=== PATIENT | male | born 1940 | race Caucasian/White ===

== ENCOUNTER → 2018-06-08 | Outpatient (CLI) | payer MEDICARE, OTHER ==
[~2018-06-08] MED LIST: ALFUZOSIN; AMIODARONE HCL200 MG PO; CYCLOSET0.8 MG PO; DORZOLAMIDE-TIM10 ML OP; FINASTERIDE5 MG PO; GARLIC1 EACH PO; GLIMEPIRIDE1 MG PO; GLIMEPIRIDE2 MG PO; JANUVIA100 MG PO; KLOR-CON 1010 MEQ PO; LASIX40 MG PO; LATANOPROST2.5 ML OU; METOPROL PO; METOPROLOL SUC100 MG PO; METOPROLOL SUCC50 MG PO; METOPROLOL TART50 MG PO; MOBIC7.5 MG PO; NAPROXEN375 M1 PO; NEXIUM40 MG PO; OCUVITE SOFTGE1 EACH PO; PANTOPRAZOLE SO40 MG PO; PHENAZOPYRIDIN100 MG PO; PRIMIDONE50 MG PO; SELEGILINE PO; SIMVASTATIN10 MG PO; UROXATRAL10 MG PO; VITAMIN E400 UNI2 PO; XARELTO15 MG PO; XARELTO20 MG PO; Z GARLIC PO; Z.0.DORZOLAMIDE-TIM1 OP; Z.0.LISINOPRIL10 MG PO; Z.0.NEXIUM40 MG; Z.0.ONGLYZA5 MG PO; Z.0.XALATAN2.5 ML OP; Z.0.ZOCOR40 MG; Z.1.VITAMIN E400 UNI PO; [UNRECOGNIZED DRUG - OTHER]; [UNRECOGNIZED DRUG - OTHER]
--- NOTE | 2018-06-08 10:25 | Diagnostic Imaging Report ---
PROCEDURE:X-RAY RIGHT SHOULDER, INTERNAL AND EXTERNAL TWO VIEWS COMPARISON:None. INDICATIONS:RIGHT SHOULDER PAIN FINDINGS: BONES: Normal mineralization. No acute fracture or dislocation. Mild degenerative changes in the right glenohumeral joint and moderate degenerative changes in the right acromioclavicular joint with joint space narrowing. Scapula is not well assessed on this study. SOFT TISSUES:Negative. CONCLUSION: No evidence of fracture or malalignment. 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 Dictated by: SREE LORENZANA M.D. on 06/08/2018 at 10:30 Electronically approved by: SREE LORENZANA M.D. on 06/08/2018 at 10:30
== END ==
LOC: RAD 09:16
PROVIDERS: ATTEND Family Medicine
DX: S46.011A Strain of muscle(s) and tendon(s) of the rotator cuff of right shoulder, initial encounter (principal)

== ENCOUNTER → 2019-04-06 | Outpatient (CLI) | payer MEDICARE, OTHER ==
[~2019-04-06] MED LIST changes: +IOPAMIDOL 370 MG/ML 200 ML INFUS..BTL INJ ONE; +SODIUM CHLORIDE 0.9% 250ML 250 ML ONE; +SODIUM CHLORIDE 0.9% 500ML 500 ML ONE; +SODIUM CHLORIDE 0.9% 50ML 50 ML ONE
[2019-04-06 09:08] LABS: CREATININE, SERUM 1.29 mg/dL (0.72-1.25)
--- NOTE | 2019-04-06 10:55 | Diagnostic Imaging Report ---
EXAMINATION: CT of the abdomen and pelvis with contrast. TECHNIQUE: Spiral CT images of the abdomen and pelvis were performed from the lung bases to the lesser trochanters after the intravenous administration of 100 cc Isovue-370. Coronal and sagittal reformatted images were obtained. COMPARISON: CT abdomen with and without contrast 05/22/2016 CLINICAL HISTORY:Right lower quadrant pain, one month duration DISCUSSION: ABDOMEN/PELVIS: LOWER THORAX:Calcified granuloma in the lingula. Cardiac device leads lie in the right atrium and right ventricle. HEPATOBILIARY: Round, hypoattenuating lesion in segment 8 is again noted, average internal attenuation 10-15 Hounsfield units compatible with a simple cyst. Similar lesion in segment 4 along the falciform ligament is no longer identified. No additional focal hepatic lesion. No intra-or extrahepatic biliary ductal dilation. The gallbladder is normal. SPLEEN: No splenomegaly. Upper pole splenic low-attenuation lesion is unchanged, average internal attenuation 10-15 Hounsfield units. PANCREAS: No focal masses or ductal dilatation. ADRENALS: Unchanged 1.6 cm left adrenal nodule. No right adrenal nodule. KIDNEYS/URETERS: Nonobstructing right lower pole renal calculi measure 3 and 4 mm in diameter. No left renal calculi. No hydronephrosis or renal mass lesion. PELVIC ORGANS/BLADDER: Urinary bladder is unremarkable. Coarse prostatic calcification. PERITONEUM/RETROPERITONEUM: No ascites. No pneumoperitoneum. LYMPH NODES: No pelvic sidewall, retroperitoneal, or mesenteric lymphadenopathy. Calcified mesenteric lymph nodes unchanged. VESSELS: Atherosclerotic calcification of the abdominal aorta, major branch vessels, and iliac arterial systems. Unchanged mild fusiform aneurysmal dilatation of the infrarenal abdominal aorta to a maximum diameter of 3.2 cm seen on series 2 image 52. Left common iliac artery measures 1.8 cm in maximum diameter; right common iliac artery measures 1.4 cm in maximum diameter. Portal vein, splenic vein, and central superior mesenteric vein are patent. GI TRACT: The large bowel is notable for multiple diverticula along the course of the entire colon, at highest concentration along the sigmoid. No wall thickening or mesocolic inflammation. The appendix is normal in the stomach is collapsed with prominent rugal folds. No small bowel dilatation to suggest obstruction. BONES AND SOFT TISSUE: Fat-containing left inguinal hernia. Otherwise no focal soft tissue abnormalities. No osseous destructive lesions. Degenerative disc changes and facet arthropathy of the lumbar spine. IMPRESSION: No acute intra-abdominal or pelvic CT abnormalities. Diffuse large bowel diverticulosis without CT findings of diverticulitis. 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 Nonobstructing right lower pole renal calculi also unchanged. Signed by: Dr. Loi Fontaine M.D. on 04/06/2019 10:52 AM
== END ==
LOC: CT 08:14
PROVIDERS: ATTEND Family Medicine
DX: R10.31 Right lower quadrant pain (principal)
CPT/HCPCS: 36415; 74177; 82565; 84520; 96360; J7040; J7050; Q9967

== ENCOUNTER 2019-07-23 07:31 | Inpatient (IN) | payer MEDICARE, OTHER ==
[2019-07-23] VITALS (14 sets, daily range): BP systolic 130–167; BP diastolic 41–85
[~2019-07-23] VITALS: Ht 190.5 cm; Wt 111.5 kg
[~2019-07-23 07:31] MED LIST changes: -IOPAMIDOL 370 MG/ML 200 ML INFUS..BTL INJ ONE; -SODIUM CHLORIDE 0.9% 250ML 250 ML ONE; -SODIUM CHLORIDE 0.9% 500ML 500 ML ONE; -SODIUM CHLORIDE 0.9% 50ML 50 ML ONE
--- OUTSIDE RECORDS SUMMARY | 2019-07-23 07:34 | XMS REPORT ---
Author Author [facility] Address Unknown Phone Unavailable Care Team Providers Care Hub Bander Name Role Phone OMAR CARROLL Unavailable Unavailable Junior ESTES Unavailable Unavailable Problems This patient has no known problems. Allergies, Adverse Reactions, Alerts This patient has no known allergies or adverse reactions. Medications This patient has no known medications. Results Test Description Test Time Test Comments Text Results Atomic Results Result Comments CT ABDOMEN/PELVIS W 2019-04-06 10:37:00 [place] [address] Patient Name: SHERRY KAPLAN MR #: [id number] : 1940 Age/Sex: 78/M Req #: [id number] Adm Physician: Ordered by: OMAR CARROLL MD Report #: [id number] Location: CT Room/Bed: Procedure: [id number] CT/CT ABDOMEN/PELVIS W Exam Date: 04/06/19 Exam Time: 1020 REPORT STATUS: Signed EXAMINATION: CT of the abdomen and pelvis with contra st. TECHNIQUE: Spiral CT images of the abdomen and pelvis were performed from the lung bases to the lesser trochanters after the intravenous administration of 100 cc Isovue-370. Coronal and sagittal reformatted images were obtained. COMPARISON: CT abdomen with and without contrast 05/22/2016 CLINICAL HISTORY:Right lower quadrant pain, one month duration DISCUSSION: ABDOMEN/PELVIS: LOWER THORAX:Calcified granuloma in the lingula. Cardiac device leads lie in the right atrium and right ventricle. HEPATOBILIARY: Round, hypoattenuating lesion in segment 8 is again noted, average internal attenuation 10-15 Hounsfield units compatible with a simple cyst. Similar lesion in segment 4 along the falciform ligament is no longer identified. No additional focal hepatic lesion. No intra-or extrahepatic biliary ductal dilation. The gallbladder is normal. SPLEEN: No splenomegaly. Upper pole splenic low-attenuation lesion is unchanged, average internal attenuation 10-15 Hounsfield units. PANCREAS: No focal masses or ductal dilatation. ADRENALS: Unchanged 1.6 cm left adrenal nodule. No right adrenal nodule. KIDNEYS/URETERS: Nonobstructing right lower pole renal calculi measure 3 and 4 mm in diameter. No left renal calculi. No hydronephrosis or renal mass lesion. PELVIC ORGANS/BLADDER: Urinary bladder is unremarkable. Coarse prostatic calcification. PERITONEUM/RETROPERITONEUM: No ascites. No pneumoperitoneum. LYMPH NODES: No pelvic sidewall, retroperitoneal, or mesenteric lymphadenopathy. Calcified mesenteric lymph nodes unchanged. VESSELS: Atherosclerotic calcification of the abdominal aorta, major branch vessels, and iliac arterial systems. Unchanged mild fusiform aneurysmal dilatation of the infrarenal abdominal aorta to a maximum diameter of 3.2 cm seen on series 2 image 52. Left common iliac artery measures 1.8 cm in maximum diameter; right common iliac artery measures 1.4 cm in maximum diameter. Portal vein, splenic vein, and central superior mesenteric vein are patent. GI TRACT: The large bowel is notable for multiple diverticula along the course of the entire colon, at highest concentration along the sigmoid. No wall thickening or mesocolic inflammation. The appendix is normal in the stomach is collapsed with prominent rugal folds. No small bowel dilatation to suggest obstruction. BONES AND SOFT TISSUE: Fat-containing left inguinal hernia. Otherwise no focal soft tissue abnormalities. No osseous destructive lesions. Degenerative disc changes and facet arthropathy of the lumbar spine. IMPRESSION: No acute intra- abdominal or pelvic CT abnormalities. Diffuse large bowel diverticulosis without CT findings of diverticulitis. 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 Nonobstructing right lower pole renal calculi also unchanged. Signed by: Dr. Tye Fontaine M.D. on 04/06/2019 10:52 AM Dictated By: TYE FONTAINE MD 1052 Transcribed By: NEGRO on 04/06/19 105 COPY TO: OMAR CARROLL MD SHOULDER RIGHT COMPLETE 2018-06-08 10:30:00 [facility] [address] [place] [address] Patient Name: SHERRY KAPLAN MR #: [id number] : 1940 Age/Sex: 77/M Req #: [id number] Adm Physician: Ordered by: OMAR CARROLL MD Report #: [id number] Location: [facility] Room/Bed: Procedure: [id number] DX/SHOULDER RIGHT COMPLETE Exam Date: 06/08/18 Exam Time: 929 REPORT STATUS: Signed PROCEDURE: X-RAY RIGHT SHOULDER, INTERNAL AND EXTERNAL TWO VIEWS COMPARISON: None. INDICATIONS: RIGHT SHOULDER PAIN FINDINGS: BONES: Normal mineralization. No acute fracture or dislocation. Mild degenerative changes in the right glenohumeral joint and moderate degenerative changes in the right acromioclavicular joint with joint space narrowing. Scapula is not well assessed on this study. SOFT TISSUES: Negative. CONCLUSION: No evidence of fracture or malalignment. 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 Dictated by: SREE LORENZANA M.D. on 06/08/2018 at 10:30 Electronically approved by: SREE LORENZANA M.D. on 06/08/2018 at 10:30 Dictated By: SREE LORENZANA MD 1030 Transcribed By: MYLENE on 06/08/18 1030 COPY TO: OMAR CARROLL MD CHEST SINGLE (PORTABLE) [place] [address] Patient Name: SHERRY KAPLAN MR #: [id number] : 1940 Age/Sex: 77/M Req #: [id number] Adm Physician: HAYDEN ESTES MD Ordered by: ANA MILLER MD Report #: [id number] Location: MED/SURG2 Room/Bed: [facility] Procedure: [id number] DX/CHEST SINGLE (PORTABLE) Exam Date: 09/17/17 Exam Time: 1300 REPORT STATUS: Signed PROCEDURE: A single AP view of the chest. COMPARISON: 09/16/2017 INDICATIONS: SHORTNESS OF BREATH FINDINGS: Lines/tubes: Left chest wall pacemaker with leads in unchanged positions Lungs: There is pulmonary vascular redistribution. There are nonspecific basilar opacities. Pleura: There is no pleural effusion or pneumothorax. Heart and mediastinum: The heart and the mediastinum are unchanged. Bones: No acute bony abnormality. Cervical fusion hardware is partially visualized. IMPRESSION: Pulmonary vascular redistribution. There are nonspecific basilar opacities which could represent atelectasis or edema. Dictated by: Harish Collier M.D. on 09/17/2017 at 13:58 Electronically approved by: Harish Collier M.D. on 09/17/2017 at 13:58 Dictated By: HARISH COLLIER MD 1358 Transcribed By: MYLENE on 09/17/17 1358 COPY TO: ANA MILLER MD CHEST SINGLE (PORTABLE) [facility] [address] [place] [address] Patient Name: SHERRY KAPLAN MR #: [id number] : 1940 Age/Sex: 77/M Req #: [id number] Adm Physician: HAYDEN ESTES MD Ordered by: TYE PALMER MD Report #: [id number] Location: ICU Room/Bed: [place] [address] Procedure: [id number] DX/CHEST SINGLE (PORTABLE) Exam Date: Exam Time: REPORT STATUS: Signed CHEST SINGLE (PORTABLE), 09/16/2017 8:00 AM Technique: CHEST SINGLE (PORTABLE) Comparison: 09/15/2017 Clinical history: Shortness of breath Findings: See Impression Impression: 1. Lines/Tubes: Stable left chest wall dual-lead pacer. Partially imaged ACDF. 2. Stable cardiomegaly with improved edema. 3. Decreased left basilar atelectasis or consolidation. Signed by: Dr Amirah Navarro MD on 09/16/2017 6:49 AM Dictated By: AMIRAH NAVARRO MD 8 Transcribed By: NEGRO on 09/16/17648 COPY TO: TYE PALMER MD CHEST SINGLE (PORTABLE) [place] [address] Patient Name: SHERRY KAPLAN MR #: [id number] : 1940 Age/Sex: 77/M Req #: [id number] Adm Physician: HAYDEN ESTES MD Ordered by: ANA MILLER MD Report #: [id number] Location: ICU Room/Bed: ICU 189-1 Procedure: [id number] DX/CHEST SINGLE (PORTABLE) Exam Date: 09/15/17 Exam Time: 1055 REPORT STATUS: Signed PROCEDURE: A single AP view of the chest. COMPARISON: 09/14/17 INDICATIONS: POST EXTUBATION FINDINGS: Lines/tubes: Stable left chest wall dual lead cardiac device. Lungs: Limited by body habitus. Pulmonary vascular congestion and moderate interstitial edema. Pleura: There is no significant pleural effusion or pneumothorax. Heart and mediastinum: Enlarged cardiac silhouette. Bones: No acute bony abnormality. Cervical spine fusion hardware is seen. IMPRESSION: Enlarged cardiac silhouette, pulmonary vascular congestion, and moderate interstitial edema. Status post extubation. Dictated by: Srini Hernandez M.D. on 09/15/2017 at 11:39 Electronically approved by: Srini Hernandez M.D. on 09/15/2017 at 11:39 Dictated By: SRINI HERNANDEZ MD 1139 Transcribed By: MYLENE on 09/15/17 1139 COPY TO: ANA MILLER MD CHEST SINGLE (PORTABLE) [place] [address] Patient Name: SHERRY KAPLAN MR #: [id number] : 1940 Age/Sex: 77/M Req #: [id number] Adm Physician: HAYDEN ESTES MD Ordered by: TYE PALMER MD Report #: [id number] Location: ICU Room/Bed: ICU 189-1 Procedure: [id number] DX/CHEST SINGLE (PORTABLE) Exam Date: 09/14/17 Exam Time: 0525 REPORT STATUS: Signed EXAM: CHEST SINGLE (PORTABLE), AP 1 view DATE: 09/14/2017 8:10 AM Time stamp on exam: 0412 hours INDICATION: Follow-up pneumonia COMPARISON: AP view of the chest September 13, 2017 FINDINGS: LINES/TUBES: Endotracheal tube terminates 5 cm above the jose. Stable appearance of left approach dual lead cardiac device. LUNGS: Pulmonary edema with additional consolidations suggesting superimposed infection predominantly in the right lung. PLEURA: No effusions or pneumothorax. HEART AND MEDIASTINUM: Stable appearance. BONES AND SOFT TISSUES: No acute findings. IMPRESSION: No interval change. Signed by: Dr. Shira Romero M.D. on 09/14/2017 5:49 AM Dictated By: SHIRA ROMERO MD 8 Transcribed By: NEGRO on 09/14/17548 COPY TO: TYE PALMER MD US RENAL RETROPERITONEAL COMP [place] [address] Patient Name: SHERRY KAPLAN MR #: [id number] : 1940 Age/Sex: 77/M Req #: [id number] Adm Physician: HAYDEN ESTES MD Ordered by: MAGNUS BRIDGES DO Report #: [id number] Location: ICU Room/Bed: ICU 189 Procedure: [id number] US/US RENAL RETROPERITONEAL COMP Exam Date: 09/14/17 Exam Time: 909 REPORT STATUS: Signed PROCEDURE: US RETROPERITONEAL ( KIDNEY ). COMPARISON: None. INDICATIONS: ARF TECHNIQUE: Xiao-scale and color sonographic images of the bilateral kidneys and bladder where obtained in transverse and longitudinal planes. FINDINGS: RIGHT KIDNEY: Measures 12.0 x 6.5 x 8.1 cm, cortex measures 2.0 cm Cysts: None Solid masses: None Stones: None Hydronephrosis: None Echogenicity: Slightly increased echogenicity. LEFT KIDNEY: Measures 12.3 x 6.0 x 6.0 cm, cortex measures 2.0 cm Cysts: None Solid masses: None Stones: None Hydronephrosis: None Echogenicity: Slightly increased echogenicity Bladder: Decompressed by a Farris catheter CONCLUSION: Slightly increased renal echogenicity without evidence of hydronephrosis or mass. Darrell Knight D.O. Dictated by: Darrell Knight D.O. on 09/14/2017 at 11:53 Electronically approved by: Darrell Knight D.O. on 09/14/2017 at 11:53 Dictated By: DARRELL KNIGHT DO 1153 Transcribed By: MYLENE on 09/14/17 1153 COPY TO: MAGNUS BRIDGES DO [facility] SINGLE (PORTABLE) [place] [address] Patient Name: SHERRY KAPLAN MR #: [id number] : 1940 Age/Sex: 77/M Req #: [id number] Adm Physician: HAYDEN ESTES MD Ordered by: TYE PALMER MD Report #: [id number] Location: ICU Room/Bed: ICU [facility] Procedure: [id number] DX/CHEST SINGLE (PORTABLE) Exam Date: 09/13/17 Exam Time: 0515 REPORT STATUS: Signed Examination: Single AP view of the chest. COMPARISON: September 12, 2017 INDICATION: Intubation DISCUSSION: Lines/tubes: Stable endotracheal and enteric tubes. Dual-lead cardiac defibrillator. Lungs: Pulmonary venous congestion. Decreased edema. Stable right mid to lower lung airspace opacity. Pleura: There is no pleural effusion or pneumothorax. Heart and mediastinum: The heart and the mediastinum are unremarkable. Bones and soft tissues: No acute bony abnormalities. IMPRESSION: Decreased pulmonary edema. Stable right mid/lower lung airspace opacity. May reflect pneumonia. Signed by: Dr. Ruma Bautista M.D. on 09/13/2017 7:05 AM Dictated By: RUMA BAUTISTA MD 4 Transcribed By: NEGRO on 09/13/17704 COPY TO: TYE PALMER MD [facility] ([place] [address] Patient Name: SHERRY KAPLAN MR #: [id number] : 1940 Age/Sex: 77/M Req #: [id number] Adm Physician: HAYDEN ESTES MD Ordered by: HAYDEN ESTES MD Report #: [id number] Location: ICU Room/Bed: ICU 1891 Procedure: [id number] DX/ABDOMEN-1VIEW (KUB) Exam Date: 09/12/17 Exam Time: 2047 REPORT STATUS: Signed EXAM: ABDOMEN-1VIEW (KUB), supine DATE: 09/12/2017 8:06 PM Time stamp on exam: 2016 INDICATION: OG tube placement verification COMPARISON: CT of the abdomen and pelvis September 11, 2017 FINDINGS: See impression IMPRESSION: Limited evaluation of the abdomen shows the orogastric tube terminating in the expected location of the antrum of the stomach. Signed by: Dr. Shira Romero M.D. on 09/12/2017 9:03 PM Dictated By: SHIRA ROMERO MD 02 Transcribed By: NEGRO on 09/12/172102 COPY TO: HAYDEN ESTES MD CHEST SINGLE (PORTABLE) [place] [address] Patient Name: SHERRY KAPLAN MR #: [id number] : 1940 Age/Sex: 77/M Req #: [id number] Adm Physician: HAYDEN ESTES MD Ordered by: HAYDEN ESTES MD Report #: [id number] Location: [facility] Room/Bed: [place] [address] Procedure: [id number] DX/CHEST SINGLE (PORTABLE) Exam Date: 09/12/17 Exam Time: 1315 REPORT STATUS: Signed EXAM: Single AP view of the chest (Portable). COMPARISON: Chest radiograph from 720 02/22 and 09/12/2017 INDICATION: Intubation FINDINGS: Single portable AP view of the chest. The visualized bones and soft tissues, cardiac silhouette lungs, pleura appear unchanged. IMPRESSION: 1. Lines/tubes: Interval placement of endotracheal tube with tip 3.6 cm above the jose. Unchanged pacemaker. 2. Persistent bilateral interstitial edema and multifocal pneumonia. Signed by: Dr. Destini Bar M.D. on 09/12/2017 1:32 PM Dictated By: DESTINI BAR MD 133 Transcribed By: NEGRO on 09/12/17 133 COPY TO: HAYDEN ESTES MD CHEST SINGLE (PORTABLE) [place] [address] Patient Name: SHERRY KAPLAN MR #: [id number] : 1940 Age/Sex: 77/M Req #: [id number] Adm Physician: HAYDEN ESTES MD Ordered by: HAYDEN ESTES MD Report #: [id number] Location: [facility] Room/Bed: [place] [address] Procedure: [id number] DX/CHEST SINGLE (PORTABLE) Exam Date: 09/12/17 Exam Time: 1200 REPORT STATUS: Signed EXAM: Single AP view of the chest (Portable). COMPARISON: Chest radiograph from 09/11/[address] chest from 11/11/2014, report only available INDICATION: Shortness of breath FINDINGS: Single portable AP view of the chest. The visualized bones and soft tissues, cardiac silhouette lungs, pleura appear unchanged. IMPRESSION: 1. Lines/tubes: Stable 2-lead pacemaker. 2. Patchy bilateral airspace opacities with the largest in the right medial lower lobe, unchanged and consistent with multifocal pneumonia. 3. Stable enlargement of the cardiac silhouette with associated interstitial edema. Signed by: Dr. Destini Bar M.D. on 09/12/2017 12:59 PM Dictated By: DESTINI BAR MD 125 Transcribed By: NEGRO on 09/12/17 1259 COPY TO: HAYDEN ESTES MD CHEST SINGLE (PORTABLE) [place] [address] Patient Name: SHERRY KAPLAN MR #: [id number] : 1940 Age/Sex: 77/M Req #: [id number] Adm Physician: Ordered by: SRIDHAR HOFFMANN MD Report #: [id number] Location: ER Room/Bed: Procedure: [id number] DX/CHEST SINGLE (PORTABLE) Exam Date: 09/11/17 Exam Time: 1510 REPORT STATUS: Signed PROCEDURE: A single AP view of the chest obtained at 1502 hrs. COMPARISON: Chest x-ray 09/11/14; CT abdomen 05/22/16 INDICATIONS: WEAK, CHILLS, ACHES FINDINGS: Lines/tubes: None. Lungs: The lungs are well inflated suggestive of small airways disease. Pulmonary vasculature is prominent but stable. There is no evidence of infiltrate. Pleura: There is no pleural effusion or pneumothorax. Heart and mediastinum: The heart is enlarged and contains dual lead pacemaker wires in the right atrium and right ventricle. Bones: Fusion hardware in the lower cervical spine is stable. No focal osseous lesions.. IMPRESSION: Cardiomegaly and chronic pulmonary vascular congestion. Pulmonary hyperinflation suggestive of COPD. Dictated by: Andi Fernandez M.D. on 09/11/2017 at 15:52 Electronically approved by: Andi Fernandez M.D. on 09/11/2017 at 15:52 Dictated By: ANDI FERNANDEZ MD 51 Transcribed By: MYLENE on 09/11/171551 COPY TO: SRIDHAR HOFFMANN MD CT ABDOMEN/PELVIS W [place] [address] Patient Name: SHERRY KAPLAN MR #: [id number] : 1940 Age/Sex: 77/M Req #: [id number] Adm Physician: Ordered by: SRIDHAR HOFFMANN MD Report #: [id number] Location: ER Room/Bed: Procedure: [id number] CT/CT ABDOMEN/PELVIS W Exam Date: Exam Time: REPORT STATUS: Signed PROCEDURE: CT ABDOMEN AND PELVIS WITH CONTRAST COMPARISON: CT abdomen performed 05/22/16, CT chest 11/11/14 INDICATIONS: COLITIS TECHNIQUE: Multidetector CT scanning of the abdomen and pelvis was performed after the administration of 100 cc of nonionic contrast. Coronal and sagittal reformations were obtained. Routine protocol performed. DLP: 799.5 mGy-cm FINDINGS: Lung bases: There is bibasilar subsegmental atelectasis. No focal infiltrates. The heart is enlarged and contains a pacemaker lead in right ventricle. No pericardial effusion. The distal esophagus is normal. Liver: Normal attenuation. A cyst in segment 8 measures 2.4 cm and is stable. The cyst in segment 4A is smaller measuring 2.1 cm in length (previously 3.9 cm). No enhancing lesions in either lobe. Gallbladder: Present and well- distended without neural thickening or pericholecystic inflammation. No biliary ductal dilatation. Spleen: Measures 17 cm in craniocaudal dimension. A low attenuating lesion in the upper pole measures 16 mm and is stable. Pancreas: Mild fatty atrophy without mass or ductal dilatation. Adrenal Glands: The right adrenal gland is normal. A nodule in the left adrenal gland measures 1.6 x 1.3 cm and is stable. 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 No cortical lesions. 2 adjacent calculi lower pole right kidney had overall size of 10 mm. There is a tiny calculus in the interpolar region of the right kidney and a 3 mm calculus in the interpolar region of the left kidney. No hydronephrosis. Gastrointestinal: The stomach and small bowel are normal in diameter with normal wall thickness. No inflammatory changes. Enteric contrast is present throughout. There is contrast throughout the large bowel. Diverticulosis coli is present without associated inflammation or mural thickening. The appendix is visualized and is normal. Vasculature: The aorta is diffusely calcified. The maximum diameter of 3.6 cm (previously, 3.5 cm). The left common iliac artery measures 18 mm. The right common iliac artery measures 15 mm. Peritoneum/Retroperitoneum: No free fluid or fluid collection. Lymph nodes: Mesenteric lymph nodes measure 10 mm or less. No enlarged retroperitoneal lymph nodes. Bladder: Normal. No ureteral dilatation. Reproductive organs: Prostate gland and subtle vesicles are normal in morphology. Musculoskeletal: Degenerative changes of the spine with grade 1 retrolisthesis of L4 on L5. No pars defects. No change in alignment. Levoscoliosis of the lumbar spine is stable. Vertebral body heights are symmetric. There are no focal osseous lesions. Soft tissues: Fat-containing left inguinal hernia. CONCLUSION: 1. Diverticulosis coli. No CT evidence for acute diverticulitis. No bowel obstruction or inflammation. Normal appendix. 2. Hepatic cysts, with a smaller cyst in segment 4A. 3. Splenomegaly. Low attenuating lesion in the spleen is stable, either a hamartoma or burned out hemangioma. 4. Bilateral intrarenal calculi. No obstructive uropathy. 5. Stable left adrenal nodule. 6. Stable infrarenal aortic ectasia. Bilateral common iliac artery aneurysms. 7. Minimal bibasilar atelectasis. Dictated by: Andi Fernandez M.D. on 09/11/2017 at 17:26 Electronically approved by: Andi Fernandez M.D. on 09/11/2017 at 17:26 Dictated By: ANDI FERNANDEZ MD 25 Transcribed By: MYLENE on 09/11/171725 COPY TO: SRIDHAR HOFFMANN MD
--- OUTSIDE RECORDS SUMMARY | 2019-07-23 07:34 | XMS REPORT | Summary of Care ---
Author Author [facility] Address Unknown Phone Unavailable Encounter HQ Basilio_shira([facility]) [id number] Date(s): 05/21/17 - 06/19/17 [facility] Discharge Disposition: Home or Self Care Attending Physician: Jairon Negron Vital Signs No data available for this section Problem List Condition Effective Dates Status Health Status Informant Diabetes Active mellitus(Confirmed) Acid Active reflux(Confirmed) Hypertension(Confirm Active ed) Pulmonary Resolved embolism(Confirmed) Sleep Active apnea(Confirmed) Tremors of nervous Active system(Confirmed) Allergies, Adverse Reactions, Alerts Substance Reaction Severity Status Ketek Active Soma Active Medications No data available for this section Results No data available for this section Immunizations No data available for this section Procedures Procedure Date Related Diagnosis Body Site Insertion of cardiac pacemaker 07/07/12 Arthroplasty of knee Cataract extraction and insertion of intraocular lens Discectomy Social History Social History Type Response Substance Abuse Use: None. Alcohol Never Smoking Status Former smoker; Exposure to Tobacco Smoke None; Cigarette Smoking Last 365 Days No; Reg Smoking Cessation Counseling No Assessment and Plan No data available for this section
--- OUTSIDE RECORDS SUMMARY | 2019-07-23 07:34 | XMS REPORT | Summary of Care ---
Author Author [facility] Organization [facility] Address Unknown Phone Unavailable Encounter CY Barnes(NEELIMA) [id number] Date(s): 04/09/17 - 04/09/17 [facility] [address] [place] [address]- [phone] Discharge Disposition: Home or Self Care Attending Physician: Jairon Negron Referring Physician: Jairon Negron Vital Signs 1 2 3 Most recent to oldest [Reference Range]: 187.96 cm (04/03/17 12:29 PM) Height 97.9 DegF (04/03/17 12:44 PM) Temperature Oral [96.4-99.1 DegF] 149/67 mmHg *HI* (04/09/17 8:00 AM) 140/63 mmHg (04/09/17 7:45 AM) 139/65 mmHg (04/09/17 7:30 AM) Blood Pressure [90-140/60-90 mmHg] 16 BRMIN (04/09/17 8:00 AM) 14 BRMIN (04/09/17 7:45 AM) 16 BRMIN (04/09/17 7:30 AM) Respiratory Rate [14-20 BRMIN] 60 bpm (04/09/17 8:00 AM) 62 bpm (04/03/17 12:44 PM) Peripheral Pulse Rate [60-100 bpm] 110.909 kg (04/03/17 12:29 PM) Weight 31.39 m2 (04/03/17 12:29 PM) Body Mass Index Problem List Condition Effective Dates Status Health Status Informant Diabetes Active mellitus(Confirmed) Acid Active reflux(Confirmed) Hypertension(Confirm Active ed) Pulmonary Resolved embolism(Confirmed) Sleep Active apnea(Confirmed) Tremors of nervous Active system(Confirmed) Allergies, Adverse Reactions, Alerts Substance Reaction Severity Status Ketek Active Soma Active Medications acetaminophen 650 mg, Route: PO, Drug form: TAB, Q4H, Dosing Weight 110.909, kg, PRN Pain 1-3/ Temp > 100.4 F, Start date: 04/09/17 7:00:00 CDT, Duration: 30 day, Stop date: 05/09/17 6:59:00 CDT Start Date: 04/09/17 Stop Date: 04/09/17 Status: Discontinued acetaminophen-hydrocodone 325 mg-10 mg oral tablet 1 tab, Route: PO, Dosing Weight 110.909, kg, Q4H, PRN Pain Score 4-6, Start date : 04/09/17 7:00:00 CDT, Duration: 30 day, Stop date: 05/09/17 6:59:00 CDT Start Date: 04/09/17 Stop Date: 04/09/17 Status: Discontinued acetaminophen-hydrocodone 325 mg-5 mg oral tablet 1 tab, Route: PO, Dosing Weight 110.909, kg, ONCE, Start date: 04/09/17 7:03:00 CDT, Stop date: 04/09/17 7:03:00 CDT, .. Start Date: 04/09/17 Stop Date: 04/09/17 Status: Ordered albuterol-ipratropium 2.5-0.5 mg inhalation solution 3 mL, Route: NEB, Dosing Weight 110.909, kg, ONCE, STAT, Start date: 04/09/17 5: 49:00 CDT, Stop date: 04/09/17 5:49:00 CDT Start Date: 04/09/17 Stop Date: 04/09/17 Status: Discontinued alfuzosin 10 mg oral tablet, extended release 10 mg=1 tab, PO, Daily, 0 Refill(s) Start Date: 04/03/17 Status: Ordered AMIODarone 200 mg oral tablet 200 mg=1 tab, PO, Daily, 0 Refill(s) Start Date: 04/03/17 Status: Ordered ANES acetaminophen 1,000 mg, Route: PO, Drug form: TAB, ONCE, Dosing Weight 110.909, kg, PRN Pain S core 1-3, Start date: 04/09/17 7:06:00 CDT, Duration: 1 doses or times, Stop gabo e: Limited # of times Start Date: 04/09/17 Stop Date: 04/09/17 Status: Discontinued ANES albuterol 0.083% inhalation solution 2.49 mg, Route: NEB, Q20Min, Dosing Weight 110.909, kg, PRN Wheezing, Priority: STAT, Start date: 04/09/17 7:06:00 CDT, Duration: 30 day, Stop date: 05/09/17 7: 05:00 CDT Start Date: 04/09/17 Stop Date: 04/09/17 Status: Discontinued ANES diphenhydrAMINE 12.5 mg, Route: IVP, Drug form: INJ, Q6H, Dosing Weight 110.909, kg, PRN Itching , Start date: 04/09/17 7:06:00 CDT, Duration: 30 day, Stop date: 05/09/17 7:05:0 0 CDT Start Date: 04/09/17 Stop Date: 04/09/17 Status: Discontinued ANES esmolol 10 mg, Route: IVP, Q5Min, Dosing Weight 110.909, kg, PRN Other -See Comment, Sta rt date: 04/09/17 7:06:00 CDT, Duration: 5 doses or times, Stop date: Limited # of times Start Date: 04/09/17 Stop Date: 04/09/17 Status: Discontinued ANES flumazenil 0.2 mg, Route: IVP, PRN, Dosing Weight 110.909, kg, PRN Benzodiazepine Reversal, Initial dose, Start date: 04/09/17 7:06:00 CDT, Duration: 30 day, Stop date: 7:05:00 CDT Start Date: 04/09/17 Stop Date: 04/09/17 Status: Discontinued ANES hydrALAZINE 10 mg, Route: IVP, Q20Min, Dosing Weight 110.909, kg, PRN Elevated BP, Start gabo e: 04/09/17 7:06:00 CDT, Duration: 2 doses or times, Stop date: Limited # of keerthi es Start Date: 04/09/17 Stop Date: 04/09/17 Status: Discontinued ANES HYDROmorphone 0.5 mg, Route: IVP, Q5Min, Dosing Weight 110.909, kg, PRN Pain Score 7-10, Start date: 04/09/17 7:06:00 CDT, Duration: 4 doses or times, Stop date: Limited # of times Start Date: 04/09/17 Stop Date: 04/09/17 Status: Discontinued ANES labetalol 10 mg, Route: IVP, Q5Min, Dosing Weight 110.909, kg, PRN Elevated BP, Start date : 04/09/17 7:06:00 CDT, Duration: 5 doses or times, Stop date: Limited # of time s Start Date: 04/09/17 Stop Date: 04/09/17 Status: Discontinued ANES meperidine 12.5 mg, Route: IVP, Q30Min, Dosing Weight 110.909, kg, PRN Other -See Comment, For shivering, Start date: 04/09/17 7:06:00 CDT, Duration: 2 doses or times, Sto p date: Limited # of times Start Date: 04/09/17 Stop Date: 04/09/17 Status: Discontinued ANES naloxone 0.4 mg, Route: IVP, Q2MIN, Dosing Weight 110.909, kg, PRN Narcotic Reversal, Sta rt date: 04/09/17 7:06:00 CDT, Duration: 8 doses or times, Stop date: Limited # of times Start Date: 04/09/17 Stop Date: 04/09/17 Status: Discontinued ANES ondansetron 4 mg, Route: IVP, ONCE, Dosing Weight 110.909, kg, PRN Nausea & Vomiting, Start date: 04/09/17 7:06:00 CDT Start Date: 04/09/17 Stop Date: 04/09/17 Status: Discontinued ANES oxyCODONE 5 mg, Route: PO, Drug form: TAB, Q4H, Dosing Weight 110.909, kg, PRN Pain Score 4-6, Start date: 04/09/17 7:06:00 CDT, Duration: 30 day, Stop date: 05/09/17 7:0 5:00 CDT Start Date: 04/09/17 Stop Date: 04/09/17 Status: Discontinued ANES promethazine 6.25 mg, Route: IVPB, ONCE, Dosing Weight 110.909, kg, PRN Nausea & Vomiting, Start date: 04/09/17 7:06:00 CDT Start Date: 04/09/17 Stop Date: 04/09/17 Status: Discontinued ceFAZolin (ANES) Route: IV, Drug form: INJ, ONCE, Stop date: 04/09/17 7:18:00 CDT Start Date: 04/09/17 Stop Date: 04/09/17 Status: Completed Cycloset 0.8 mg oral tablet 1.6 mg=2 tab, PO, QAM, 0 Refill(s) Start Date: 04/03/17 Status: Ordered dorzolamide ophthalmic 2% solution 1 drp, RIGHT EYE, BID, # 10 mL, 0 Refill(s) Start Date: 04/03/17 Status: Ordered ePHEDrine (ANES) Route: IV, Drug form: INJ, ONCE, Stop date: 04/09/17 7:18:00 CDT Start Date: 04/09/17 Stop Date: 04/09/17 Status: Completed famotidine (ANES) Route: IV, Drug form: INJ, ONCE, Stop date: 04/09/17 7:19:00 CDT Start Date: 04/09/17 Stop Date: 04/09/17 Status: Completed fentaNYL (ANES) Route: IV, Drug form: INJ, ONCE, Stop date: 04/09/17 7:18:00 CDT Start Date: 04/09/17 Stop Date: 04/09/17 Status: Completed finasteride 5 mg oral tablet 5 mg=1 tab, PO, Daily, 0 Refill(s) Start Date: 04/03/17 Status: Ordered Garlic Oil oral capsule 0 Refill(s) Start Date: 04/03/17 Status: Ordered glimepiride 2 mg oral tablet 2 mg=1 tab, PO, BID, 0 Refill(s) Start Date: 04/03/17 Status: Ordered hydromorphone 0.5 mg, Route: IVP, Q3H, Dosing Weight 110.909, kg, PRN Pain Score 4-6, Start da te: 04/09/17 7:00:00 CDT, Duration: 30 day, Stop date: 05/09/17 6:59:00 CDT Start Date: 04/09/17 Stop Date: 04/09/17 Status: Discontinued Insulin regular 10 unit, Route: IVP, ONCE, Dosing Weight 110.909, kg, Start date: 04/09/17 5:49: 00 CDT, Stop date: 04/09/17 5:49:00 CDT Start Date: 04/09/17 Stop Date: 04/09/17 Status: Completed Januvia 100 mg oral tablet 100 mg=1 tab, PO, Daily, 0 Refill(s) Start Date: 04/03/17 Status: Ordered Keflex 500 mg oral capsule 500 mg=1 cap, PO, QID, X 10 day, # 40 cap, 0 Refill(s) Start Date: 04/08/17 Stop Date: 04/18/17 Status: Ordered Lactated Ringers Injection IV 1000 mL 1,000 mL, Rate: 125 ml/hr, Infuse over: 8 hr, Route: IV, Dosing Weight 110.909 k g, Total Volume: 1,000, Start date: 04/09/17 7:06:00 CDT, Duration: 30 day, Stop date: 05/09/17 7:05:00 CDT Start Date: 04/09/17 Stop Date: 04/09/17 Status: Discontinued Lactated Ringers Injection IV 1000 mL 1,000 mL, Rate: 25 ml/hr, Infuse over: 40 hr, Route: IV, Dosing Weight 110.909 k g, Total Volume: 1,000, Start date: 04/09/17 5:49:00 CDT, Duration: 30 day, Stop date: 05/09/17 5:48:00 CDT Start Date: 04/09/17 Stop Date: 04/09/17 Status: Discontinued latanoprost ophthalmic 0.005% solution 1 drp, BOTH EYES, QPM, 0 Refill(s) Start Date: 04/03/17 Status: Ordered lidocaine (ANES) Route: IV, Drug form: INJ, ONCE, Stop date: 04/09/17 7:18:00 CDT Start Date: 04/09/17 Stop Date: 04/09/17 Status: Completed LR 1000 mL INJ (ANES) Route: IV, Total Volume: 1,000, Start date: 04/09/17 6:15:00 CDT, Stop date: 7:15:00 CDT Start Date: 04/09/17 Stop Date: 04/09/17 Status: Completed metoclopramide (ANES) Route: IV, Drug form: INJ, ONCE, Stop date: 04/09/17 7:19:00 CDT Start Date: 04/09/17 Stop Date: 04/09/17 Status: Completed midazolam (ANES) Route: IV, Drug form: SOLN, ONCE, Stop date: 04/09/17 7:18:00 CDT Start Date: 04/09/17 Stop Date: 04/09/17 Status: Completed naproxen 375 mg oral tablet 375 mg=1 tab, PO, BID, 0 Refill(s) Start Date: 04/03/17 Status: Ordered Ocuvite 1 tab, PO, Daily, 0 Refill(s) Start Date: 04/03/17 Status: Ordered ondansetron (ANES) Route: IV, Drug form: INJ, ONCE, Stop date: 04/09/17 7:18:00 CDT Start Date: 04/09/17 Stop Date: 04/09/17 Status: Completed primidone 50 mg oral tablet 50 mg=1 tab, PO, QID, 0 Refill(s) Start Date: 04/03/17 Status: Ordered propofol (ANES) Route: IV, Drug form: INJ, ONCE, Stop date: 04/09/17 7:18:00 CDT Start Date: 04/09/17 Stop Date: 04/09/17 Status: Completed Protonix 40 mg oral enteric coated tablet 40 mg=1 tab, PO, BID, 0 Refill(s) Start Date: 04/03/17 Status: Ordered simvastatin 10 mg oral tablet 10 mg=1 tab, PO, Bedtime, 0 Refill(s) Start Date: 04/03/17 Status: Ordered Toprol-XL 100 mg oral tablet, extended release 100 mg=1 tab, PO, BID, 0 Refill(s) Start Date: 04/03/17 Status: Ordered tramadol 50 mg, Route: PO, Drug form: TAB, ONCE, Dosing Weight 110.909, kg, Start date: 0 04/09/17 7:03:00 CDT, Stop date: 04/09/17 7:03:00 CDT, .. Start Date: 04/09/17 Stop Date: 04/09/17 Status: Ordered tramadol 50 mg, Route: PO, Drug form: TAB, Q6H, Dosing Weight 110.909, kg, PRN Pain Score 1-3, Start date: 04/09/17 7:00:00 CDT, Duration: 30 day, Stop date: 05/09/17 6: 59:00 CDT Start Date: 04/09/17 Stop Date: 04/09/17 Status: Discontinued vitamin E 400 intl units oral capsule 400 IntlUnit=1 cap, PO, BID, 0 Refill(s) Start Date: 04/03/17 Status: Ordered Xarelto 20 mg oral tablet 20 mg=1 tab, PO, QPM, # 30 tab, 3 Refill(s) Start Date: 04/03/17 Status: Ordered Results ELECTROLYTES Most recent to 1 oldest [Reference Range]: Sodium Lvl [135-145 138 mEq/L mEq/L] (04/03/17 1:31 PM) Potassium Lvl 4.5 mEq/L [3.5-5.1 mEq/L] (04/03/17 1:31 PM) Chloride Lvl [95-109 105 mEq/L mEq/L] (04/03/17 1:31 PM) CO2 [24-32 mEq/L] 26 mEq/L (04/03/17 1:31 PM) AGAP [10.0-20.0 11.5 mEq/L mEq/L] (04/03/17 1:31 PM) CHEM PANEL Most recent to 1 oldest [Reference Range]: Creatinine Lvl 1.10 mg/dL [0.50-1.40 mg/dL] (04/03/17 1:31 PM) eGFR 64 mL/min/1.73m2 1 *NA* (04/03/17 1:31 PM) BUN [7-22 mg/dL] 17 mg/dL (04/03/17 1:31 PM) Glucose Lvl [70-99 199 mg/dL mg/dL] *HI* (04/03/17 1:31 PM) Calcium Lvl 9.2 mg/dL [8.5-10.5 mg/dL] (04/03/17 1:31 PM) 1Result Comment: The eGFR is calculated using the CKD-EPI formula. In most young, healthy individuals the eGFR will be >90 mL/min/1.73m2. The eGFR declines with age. An eGFR of 60-89 may be normal in some populations, particularly the elderly, for whom the CKD-EPI formula has not been extensively validated. Use of the eGFR is not recommended in the following populations: Individuals with unstable creatinine concentrations, including patients and those with serious co-morbid conditions. Patients with extremes in muscle mass or diet. The data above are obtained from the National Kid[employer] Disease Education Program ( NKDEP) which additionally recommends that when the eGFR is used in patients with extremes of body mass index for purposes of drug dosing, the eGFR should be mul tiplied by the estimated BMI. HEMATOLOGY Most recent to 1 oldest [Reference Range]: WBC [3.7-10.4 K/CMM] 5.7 K/CMM (04/03/17 1:31 PM) RBC [4.70-6.10 5.06 M/CMM M/CMM] (04/03/17 1:31 PM) Hgb [14.0-18.0 g/dL] 15.0 g/dL (04/03/17 1:31 PM) Hct [42.0-54.0 %] 43.3 % (04/03/17 1:31 PM) MCV [80.0-94.0 fL] 85.5 fL (04/03/17 1:31 PM) MCH [27.0-31.0 pg] 29.6 pg (04/03/17 1:31 PM) MCHC [32.0-36.0 34.6 g/dL g/dL] (04/03/17 1:31 PM) RDW [11.5-14.5 %] 14.3 % (04/03/17 1:31 PM) Platelet [133-450 162 K/CMM K/CMM] (04/03/17 1:31 PM) MPV [7.4-10.4 fL] 7.7 fL (04/03/17 1:31 PM) Segs [45.0-75.0 %] 56.4 % (04/03/17 1:31 PM) Lymphocytes 31.6 % [20.0-40.0 %] (04/03/17 1:31 PM) Monocytes [2.0-12.0 9.9 % %] (04/03/17 1:31 PM) Eosinophils [0.0-4.0 1.2 % %] (04/03/17 1:31 PM) Basophils [0.0-1.0 0.9 % %] (04/03/17 1:31 PM) Segs-Bands # 3.2 K/CMM [1.5-8.1 K/CMM] (04/03/17 1:31 PM) Lymphocytes # 1.8 K/CMM [1.0-5.5 K/CMM] (04/03/17 1:31 PM) Monocytes # [0.0-0.8 0.6 K/CMM K/CMM] (04/03/17 1:31 PM) Eosinophils # 0.1 K/CMM [0.0-0.5 K/CMM] (04/03/17 1:31 PM) Basophils # [0.0-0.2 0.1 K/CMM K/CMM] (04/03/17 1:31 PM) PT [12.0-14.7 17.7 seconds seconds] *HI* (04/03/17 1:31 PM) INR [0.85-1.17] 1.43 *HI* (04/03/17 1:31 PM) PTT [22.9-35.8 34.2 seconds seconds] (04/03/17 1:31 PM) Immunizations No data available for this section [...]
--- OUTSIDE RECORDS SUMMARY | 2019-07-23 07:34 | XMS REPORT | Summary of Care ---
Author Author [facility] Address Unknown Phone Unavailable Encounter HQ Nicantr_shira([facility]) [id number] Date(s): 04/21/17 - 05/20/17 [facility] Discharge Disposition: Home or Self Care Attending Physician: Mendy Jones MD Vital Signs No data available for this [...]
--- OUTSIDE RECORDS SUMMARY | 2019-07-23 07:34 | XMS REPORT | Summary of Care ---
Author Author [facility] Address Unknown Phone Unavailable Encounter HQ Encntr_shira([facility]) [id number] Date(s): 03/17/17 - 04/15/17 [facility] Final: Other lack of coordination Discharge Disposition: Home or Self Care Attending [...]
--- OUTSIDE RECORDS SUMMARY | 2019-07-23 07:34 | XMS REPORT | Summary of Care ---
Author Author [facility] Address Unknown Phone Unavailable Encounter HQ Basilio_shira([facility]) [id number] Date(s): 06/23/17 - 07/22/17 [facility] Discharge Disposition: Home or Self Care Attending [...]
--- OUTSIDE RECORDS SUMMARY | 2019-07-23 07:34 | XMS REPORT | Continuity of Care Document ---
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 Name Role Phone [employer] Information [employer] Unavailable Unavailable Problems Problem Status Onset Date Classification Date Reported Comments Source UNK Active 03/31/2017 [facility] LEFT ANKLE/FOOT DROP Active 03/17/2017 [facility] [place] LEFT ANKLE/DROP FOOT Active 03/17/2017 [facility] [place] LEFT ANKLE/DROP FOOT AND RIGHT HAND Active 03/17/2017 [facility] [place] RIGHT HAND Active 01/21/2017 [facility] [place] 415.19 Active 05/28/2015 [facility] Diabetes mellitus (disorder) Active Problem 07/25/2017 [facility] [place] Gastroesophageal reflux disease (disorder) Active Problem 07/25/2017 [facility] [place] Hypertensive disorder, systemic arterial (disorder) Active Problem 07/25/2017 [facility] [place] Pulmonary embolism (disorder) Resolved Problem 07/25/2017 [facility] [place] Sleep apnea (finding) Active Problem 07/25/2017 [facility] [place] Tremor (finding) Active Problem 07/25/2017 [facility] [place] Other lack of coordination 04/18/2017 [facility] [place] FOOT DROP, LEFT FOOT Active [facility] [place] MUSCLE WEAKNESS (GENERALIZED) Active [facility] [place] DIFFICULTY IN WALKING, NOT ELSEWHERE CLA Active [facility] [place] OTHER LACK OF COORDINATION Active [facility] [place] CARPAL TUNNEL SYNDROME, RIGHT UPPER LIMB Active [facility] LESION OF ULNAR NERVE, RIGHT UPPER LIMB Active [facility] Medications Medication Details Route Status Patient Instructions Ordering Provider Order Date Source famotidine (ANES) Route: IV, Drug form: INJ, ONCE, Stop date: 04/09/17 7:19:00 CDT Inactive 04/09/2017 [facility] metoclopramide (ANES) Route: IV, Drug form: INJ, ONCE, Stop date: 04/09/17 7:19:00 CDT Inactive 04/09/2017 [facility] fentaNYL (ANES) Route: IV, Drug form: INJ, ONCE, Stop date: 04/09/17 7:18:00 CDT Inactive 04/09/2017 [facility] ondansetron (ANES) Route: IV, Drug form: INJ, ONCE, Stop date: 04/09/17 7:18:00 CDT Inactive 04/09/2017 [facility] ceFAZolin (ANES) Route: IV, Drug form: INJ, ONCE, Stop date: 04/09/17 7:18:00 CDT Inactive 04/09/2017 [facility] midazolam (ANES) Route: IV, Drug form: SOLN, ONCE, Stop date: 04/09/17 7:18:00 CDT Inactive 04/09/2017 [facility] propofol (ANES) Route: IV, Drug form: INJ, ONCE, Stop date: 04/09/17 7:18:00 CDT Inactive 04/09/2017 [facility] lidocaine (ANES) Route: IV, Drug form: INJ, ONCE, Stop date: 04/09/17 7:18:00 CDT Inactive 04/09/2017 [facility] ePHEDrine (ANES) Route: IV, Drug form: INJ, ONCE, Stop date: 04/09/17 7:18:00 CDT Inactive 04/09/2017 [facility] Hydromorphone 0.5 mg, Route: IVP, Q5Min, Dosing Weight 110.909, kg, PRN Pain Score 7-10, Start date: 04/09/17 7:06:00 CDT, Duration: 4 doses or times, Stop date: Limited # of times Inactive 04/09/2017 [facility] Ondansetron 4 mg, Route: IVP, ONCE, Dosing Weight 110.909, kg, PRN Nausea & Vomiting, Start date: 04/09/17 7:06:00 CDT Inactive 04/09/2017 [facility] Promethazine 6.25 mg, Route: IVPB, ONCE, Dosing Weight 110.909, kg, PRN Nausea & Vomiting, Start date: 04/09/17 7:06:00 CDT Inactive 04/09/2017 [facility] Meperidine 12.5 mg, Route: IVP, Q30Min, Dosing Weight 110.909, kg, PRN Other -See Comment, For shivering, Start date: 04/09/17 7:06:00 CDT, Duration: 2 doses or times, Stop date: Limited # of times Inactive 04/09/2017 [facility] Diphenhydramine 12.5 mg, Route: IVP, Drug form: INJ, Q6H, Dosing Weight 110.909, kg, PRN Itching, Start date: 04/09/17 7:06:00 CDT, Duration: 30 day, Stop date: 05/09/17 7:05:00 CDT Inactive 04/09/2017 [facility] Naloxone 0.4 mg, Route: IVP, Q2MIN, Dosing Weight 110.909, kg, PRN Narcotic Reversal, Start date: 04/09/17 7:06:00 CDT, Duration: 8 doses or times, Stop date: Limited # of times Inactive 04/09/2017 [facility] Albuterol 0.83 MG/ML Inhalant Solution 2.49 mg, Route: NEB, Q20Min, Dosing Weight 110.909, kg, PRN Wheezing, Priority: STAT, Start date: 04/09/17 7:06:00 CDT, Duration: 30 day, Stop date: 05/09/17 7:05:00 CDT Inactive 04/09/2017 [facility] Flumazenil 0.2 mg, Route: IVP, PRN, Dosing Weight 110.909, kg, PRN Benzodiazepine Reversal, Initial dose, Start date: 04/09/17 7:06:00 CDT, Duration: 30 day, Stop date: 05/09/17 7:05:00 CDT Inactive 04/09/2017 [facility] Hydralazine 10 mg, Route: IVP, Q20Min, Dosing Weight 110.909, kg, PRN Elevated BP, Start date: 04/09/17 7:06:00 CDT, Duration: 2 doses or times, Stop date: Limited # of times Inactive 04/09/2017 [facility] Labetalol 10 mg, Route: IVP, Q5Min, Dosing Weight 110.909, kg, PRN Elevated BP, Start date: 04/09/17 7:06:00 CDT, Duration: 5 doses or times, Stop date: Limited # of times Inactive 04/09/2017 [facility] esmolol 10 mg, Route: IVP, Q5Min, Dosing Weight 110.909, kg, PRN Other -See Comment, Start date: 04/09/17 7:06:00 CDT, Duration: 5 doses or times, Stop date: Limited # of times Inactive 04/09/2017 [facility] Acetaminophen 1,000 mg, Route: PO, Drug form: TAB, ONCE, Dosing Weight 110.909, kg, PRN Pain Score 1-3, Start date: 04/09/17 7:06:00 CDT, Duration: 1 doses or times, Stop date: Limited # of times Inactive 04/09/2017 [facility] Oxycodone 5 mg, Route: PO, Drug form: TAB, Q4H, Dosing Weight 110.909, kg, PRN Pain Score 4-6, Start date: 04/09/17 7:06:00 CDT, Duration: 30 day, Stop date: 05/09/17 7:05:00 CDT Inactive 04/09/2017 [facility] Calcium Chloride 0.0014 MEQ/ML / Potassium Chloride 0.004 MEQ/ML / Sodium Chloride 0.103 MEQ/ML / Sodium Lactate 0.028 MEQ/ML Injectable Solution 1,000 mL, Rate: 125 ml/hr, Infuse over: 8 hr, Route: IV, Dosing Weight 110.909 kg, Total Volume: 1,000, Start date: 04/09/17 7:06:00 CDT, Duration: 30 day, Stop date: 05/09/17 7:05:00 CDT Inactive 04/09/2017 [facility] Tramadol 50 mg, Route: PO, Drug form: TAB, ONCE, Dosing Weight 110.909, kg, Start date: 04/09/17 7:03:00 CDT, Stop date: 04/09/17 7:03:00 CDT, .. Inactive 04/09/2017 [facility] Acetaminophen 325 MG / Hydrocodone Bitartrate 5 MG Oral Tablet 1 tab, Route: PO, Dosing Weight 110.909, kg, ONCE, Start date: 04/09/17 7:03:00 CDT, Stop date: 04/09/17 7:03:00 CDT, .. Inactive 04/09/2017 [facility] Tramadol 50 mg, Route: PO, Drug form: TAB, Q6H, Dosing Weight 110.909, kg, PRN Pain Score 1-3, Start date: 04/09/17 7:00:00 CDT, Duration: 30 day, Stop date: 05/09/17 6:59:00 CDT Inactive 04/09/2017 [facility] Hydromorphone 0.5 mg, Route: IVP, Q3H, Dosing Weight 110.909, kg, PRN Pain Score 4-6, Start date: 04/09/17 7:00:00 CDT, Duration: 30 day, Stop date: 05/09/17 6:59:00 CDT Inactive 04/09/2017 [facility] Acetaminophen 325 MG / Hydrocodone Bitartrate 10 MG Oral Tablet 1 tab, Route: PO, Dosing Weight 110.909, kg, Q4H, PRN Pain Score 4-6, Start date: 04/09/17 7:00:00 CDT, Duration: 30 day, Stop date: 05/09/17 6:59:00 CDT Inactive 04/09/2017 [facility] Acetaminophen 650 mg, Route: PO, Drug form: TAB, Q4H, Dosing Weight 110.909, kg, PRN Pain 1-3/Temp > 100.4 F, Start date: 04/09/17 7:00:00 CDT, Duration: 30 day, Stop date: 05/09/17 6:59:00 CDT Inactive 04/09/2017 [facility] LR 1000 mL INJ (ANES) Route: IV, Total Volume: 1,000, Start date: 04/09/17 6:15:00 CDT, Stop date: 04/09/17 7:15:00 CDT Inactive 04/09/2017 [facility] Insulin regular 10 unit, Route: IVP, ONCE, Dosing Weight 110.909, kg, Start date: 04/09/17 5:49:00 CDT, Stop date: 04/09/17 5:49:00 CDT Inactive 04/09/2017 [facility] Albuterol 0.833 MG/ML / Ipratropium Eugene 0.167 MG/ML Inhalant Solution 3 mL, Route: NEB, Dosing Weight 110.909, kg, ONCE, STAT, Start date: 04/09/17 5:49:00 CDT, Stop date: 04/09/17 5:49:00 CDT Inactive 04/09/2017 [facility] Calcium Chloride 0.0014 MEQ/ML / Potassium Chloride 0.004 MEQ/ML / Sodium Chloride 0.103 MEQ/ML / Sodium Lactate 0.028 MEQ/ML Injectable Solution 1,000 mL, Rate: 25 ml/hr, Infuse over: 40 hr, Route: IV, Dosing Weight 110.909 kg, Total Volume: 1,000, Start date: 04/09/17 5:49:00 CDT, Duration: 30 day, Stop date: 05/09/17 5:48:00 CDT Inactive 04/09/2017 [facility] Cephalexin 500 MG Oral Capsule [Keflex] 500 mg=1 cap, PO, QID, X 10 day, # 40 cap, 0 Refill(s) Active 04/08/2017 [facility] Ocuvite 1 tab, PO, Daily, 0 Refill(s) Active 04/03/2017 [facility] Garlic Oil oral capsule 0 Refill(s) Active 04/03/2017 [facility] vitamin E 400 intl units oral capsule 400 IntlUnit=1 cap, PO, BID, 0 Refill(s) Active 04/03/2017 [facility] pantoprazole 40 MG Enteric Coated Tablet [Protonix] 40 mg=1 tab, PO, BID, 0 Refill(s) Active 04/03/2017 [facility] primidone 50 mg oral tablet 50 mg=1 tab, PO, QID, 0 Refill(s) Active 04/03/2017 [facility] dorzolamide 20 MG/ML Ophthalmic Solution 1 drp, RIGHT EYE, BID, # 10 mL, 0 Refill(s) Active 04/03/2017 [facility] latanoprost 0.05 MG/ML Ophthalmic Solution 1 drp, BOTH EYES, QPM, 0 Refill(s) Active 04/03/2017 [facility] AMIODarone 200 mg oral tablet 200 mg=1 tab, PO, Daily, 0 Refill(s) Active 04/03/2017 [facility] rivaroxaban 20 MG Oral Tablet [Xarelto] 20 mg=1 tab, PO, QPM, # 30 tab, 3 Refill(s) Active 04/03/2017 [facility] 24 HR Metoprolol Tartrate 100 MG Extended Release Tablet [Toprol] 100 mg=1 tab, PO, BID, 0 Refill(s) Active 04/03/2017 [facility] finasteride 5 mg oral tablet 5 mg=1 tab, PO, Daily, 0 Refill(s) Active 04/03/2017 [facility] Bromocriptine 0.8 MG Oral Tablet [Cycloset] 1.6 mg=2 tab, PO, QAM, 0 Refill(s) Active 04/03/2017 [facility] glimepiride 2 mg oral tablet 2 mg=1 tab, PO, BID, 0 Refill(s) Active 04/03/2017 [facility] naproxen 375 mg oral tablet 375 mg=1 tab, PO, BID, 0 Refill(s) Active 04/03/2017 [facility] sitagliptin 100 MG Oral Tablet [Januvia] 100 mg=1 tab, PO, Daily, 0 Refill(s) Active 04/03/2017 [facility] simvastatin 10 mg oral tablet 10 mg=1 tab, PO, Bedtime, 0 Refill(s) Active 04/03/2017 [facility] alfuzosin 10 mg oral tablet, extended release 10 mg=1 tab, PO, Daily, 0 Refill(s) Active 04/03/2017 [facility] Allergies, Adverse Reactions, Alerts Substance Category Reaction Severity Reaction type Status Date Reported Comments Source [place] Assertion Drug allergy Active [facility] [place] Soma Assertion Drug allergy Active [facility] [place] Immunizations No Data Provided for This Section Results Order Name Results Value Reference Range Date Interpretation Comments Source CHEM PANEL eGFR 64 04/03/2017 Result Comment: The eGFR is calculated using the [...] from the National Kidney Disease Education Program (NKDEP) which additionally recommends that when the eGFR is used in patients with extremes of body mass index for purposes of drug dosing, the eGFR should be multiplied by the estimated BMI. [facility] CHEM PANEL Potassium Lvl 4.5 3.5 - 5.1 04/03/2017 [facility] CHEM PANEL Chloride Lvl 105 95 - 109 04/03/2017 [facility] CHEM PANEL Calcium Lvl 9.2 8.5 - 10.5 04/03/2017 [facility] CHEM PANEL CO2 26 24 - 32 04/03/2017 [facility] CHEM PANEL BUN 17 7 - 22 04/03/2017 [facility] CHEM PANEL Creatinine Lvl 1.10 0.50 - 1.40 04/03/2017 [facility] CHEM PANEL Glucose Lvl 199 70 - 99 04/03/2017 [facility] CHEM PANEL Sodium Lvl 138 135 - 145 04/03/2017 [facility] CHEM PANEL AGAP 11.5 10.0 - 20.0 04/03/2017 [facility] HEMATOLOGY PTT 34.2 22.9 - 35.8 04/03/2017 [facility] HEMATOLOGY PT 17.7 12.0 - 14.7 04/03/2017 [facility] HEMATOLOGY INR 1.43 0.85 - 1.17 04/03/2017 [facility] HEMATOLOGY Monocytes # 0.6 0.0 - 0.8 04/03/2017 [facility] HEMATOLOGY Eosinophils # 0.1 0.0 - 0.5 04/03/2017 [facility] HEMATOLOGY Basophils # 0.1 0.0 - 0.2 04/03/2017 [facility] HEMATOLOGY Lymphocytes 31.6 20.0 - 40.0 04/03/2017 [facility] HEMATOLOGY Segs 56.4 45.0 - 75.0 04/03/2017 [facility] HEMATOLOGY Monocytes 9.9 2.0 - 12.0 04/03/2017 [facility] HEMATOLOGY Eosinophils 1.2 0.0 - 4.0 04/03/2017 [facility] HEMATOLOGY Basophils 0.9 0.0 - 1.0 04/03/2017 [facility] HEMATOLOGY Segs-Bands # 3.2 1.5 - 8.1 04/03/2017 [facility] HEMATOLOGY Lymphocytes # 1.8 1.0 - 5.5 04/03/2017 [facility] HEMATOLOGY WBC 5.7 3.7 - 10.4 04/03/2017 [facility] HEMATOLOG[facility] Hct 43.3 42.0 - 54.0 04/03/2017 [facility] HEMATOLOGY Hgb 15.0 14.0 - 18.0 04/03/2017 [facility] HEMATOLOGY MCH 29.6 27.0 - 31.0 04/03/2017 [facility] HEMATOLOGY MCV 85.5 80.0 - 94.0 04/03/2017 [facility] HEMATOLOGY RBC 5.06 4.70 - 6.10 04/03/2017 [facility] HEMATOLOGY RDW 14.3 11.5 - 14.5 04/03/2017 [facility] HEMATOLOGY MCHC 34.6 32.0 - 36.0 04/03/2017 [facility] HEMATOLOGY MPV 7.7 7.4 - 10.4 04/03/2017 [facility] HEMATOLOGY Platelet 162 133 - 450 04/03/2017 [facility] Pathology Reports No Data Provided for This Section Diagnostic Reports Report Value Date Source Chest 2 views DX Patient Name: SHERRY KAPLAN : 1940; Age: 76 years y/o Male MR: [id number] * CHEST, 2 views HISTORY: Coughing COMPARISON: None TECHNIQUE: Frontal and lateral radiographs of the chest were obtained. FINDINGS: The lungs are clear. A small calcified granulomas noted in the left midlung. There are no pleural effusions. The heart and pulmonary vasculature are within normal limits. There are mild atherosclerotic changes involving the thoracic aorta. There are postoperative changes involving the cervical spine. There is mild thoracolumbar scoliosis. The regional skeleton is otherwise unremarkable. There is a left subclavian dual-lead transvenous pacemaker. IMPRESSION: 1. No active disease. 2. Postoperative changes, cervical spine. 3. There is a left subclavian dual-lead transvenous pacemaker. SL: [id number] 04/03/2017 [facility] Consultation Notes No Data Provided for This Section Discharge Summaries No Data Provided for This Section History and Physicals No Data Provided for This Section Vital Signs Vital Sign Value Date Comments Source Respitory Rate 16 04/09/2017 [facility] Heart Rate 60 04/09/2017 [facility] Systolic (mm Hg) 149 04/09/2017 [facility] Diastolic (mm Hg) 67 04/09/2017 [facility] Respitory Rate 14 04/09/2017 [facility] Systolic (mm Hg) 140 04/09/2017 [facility] Diastolic (mm Hg) 63 04/09/2017 [facility] Respitory Rate 16 04/09/2017 [facility] Systolic (mm Hg) 139 04/09/2017 [facility] Diastolic (mm Hg) 65 04/09/2017 [facility] Temperature Oral (F) 97.9 F 04/03/2017 [facility] Heart Rate 62 04/03/2017 [facility] BMI Calculated 31.39 04/03/2017 [facility] Weight 110.909 04/03/2017 [facility] Height 187.96 cm 04/03/2017 [facility] Encounters Location Location Details Encounter Type Encounter Number Reason For Visit Attending Provider ADM Date DC Date Status Source [facility] [place] OP Therapy Patients [id number] Mendy Reardondar 03/17/2017 04/16/2017 [facility] [place] [facility] Day Surgery [id number] Jairon Boyern 04/09/2017 04/09/2017 [facility] [place] OP Therapy Patients [id number] Mendy Bradfordmundar 04/21/2017 05/21/2017 [facility] [place] [facility] [place] OP Therapy Patients [id number] Jairon Negron 05/21/2017 06/20/2017 [facility] [place] [facility] [place] OP Therapy Patients [id number] Jairon Negron 06/23/2017 07/23/2017 [facility] Procedures Procedure Code Date Perfomer Comments Source Insertion of cardiac pacemaker [id number] 07/07/2012 [facility] [place] Arthroplasty of knee [id number] [facility] [place] Cataract extraction and insertion of intraocular lens [id number] [facility] [place] Discectomy [id number] [facility] [place] Assessment and Plan No Data Provided for This Section Plan of Care No Data Provided for This Section Social History Social History Date Source Social History TypeResponse Substance Abuse Use: None. Alcohol Never Smoking Status Former smoker; Exposure to Tobacco Smoke None; Cigarette Smoking Last 365 Days No; Reg Smoking Cessation Counseling No 04/03/2017 [facility] [place] Social History TypeResponse Substance Abuse Use: None. Alcohol Never Smoking Status Former smoker; Exposure to Tobacco Smoke None; Cigarette Smoking Last 365 Days No; Reg Smoking Cessation Counseling No 04/03/2017 [facility] Family History No Data Provided for This Section Advance Directives No Data Provided for This Section Functional Status No Data Provided for This Section
[2019-07-23] MEDS ORDERED: NITROGLYCERIN/D5W 200 MCG/ML 250 ML ONE (07:42)
[2019-07-23] MEDS ORDERED: NITROGLYCERIN 2% OINT 1 GM PKT TOP ONE (07:45)
[2019-07-23] MEDS ORDERED: NITROGLYCERIN 2% OINT 1 GM PKT ONE (07:47)
[2019-07-23 07:59] LABS: BASOPHILS # (AUTO) 0.1 (0.0-0.1); BASOPHILS % 0.4 % (0.0-1.0); EOSINOPHILS % 0.2 % (0.0-6.0); HEMATOCRIT 45.5 % (38.2-49.6); LYMPHOCYTES # (AUTO) 2.3 (1.0-3.2); LYMPHOCYTES % 18.8 % (18.0-39.1); MEAN CORPUSCULAR HEMOGLOBIN 29.4 pg (28-32); MONOCYTES # (AUTO) 0.9 (0.2-0.8); MONOCYTES % 7.3 % (4.4-11.3); NEUTROPHILS # (AUTO) 8.9 (2.1-6.9); NEUTROPHILS % 72.2 % (38.7-80.0); PLATELET COUNT 129 x10e3/uL (140-360); RED BLOOD COUNT 5.11 x10e6/uL (4.3-5.7); RED CELL DISTRIBUTION WIDTH 13.7 % (11.7-14.4)
[2019-07-23 08:09] LABS: INR 1.95; PROTHROMBIN TIME 22.9 seconds (11.9-14.5)
[2019-07-23 08:10] LABS: PARTIAL THROMBOPLASTIN TIME 42.5 seconds (23.8-35.5)
[2019-07-23 08:18] LABS: ALBUMIN 3.5 g/dL (3.5-5.0); ALBUMIN/GLOBULIN RATIO 0.9 (0.8-2.0); ANION GAP 14.4 mmol/L (8-16); CREATININE, SERUM 1.41 mg/dL (0.72-1.25); MAGNESIUM 2.2 MG/DL (1.3-2.1); POTASSIUM 5.4 mmol/L (3.5-5.1)
[2019-07-23 08:25] LABS: CREATINE KINASE MB 1.3 ng/mL (0-5.0)
[2019-07-23] MEDS ORDERED: TRULICITY SQ (08:29)
[2019-07-23] MEDS ORDERED: JARDIANCE PO (08:29)
[2019-07-23] MEDS ORDERED: TOPROL XL50 MG PO (08:29)
[2019-07-23] MEDS ORDERED: GABAPENTIN300 MG PO (08:29)
--- NOTE | 2019-07-23 08:30 | NUR ---
[employer] HAS PATIENTS W[employer]ENTS ALONG WITH W[employer]ING
[2019-07-23 08:32] LABS: B-TYPE NATRIURETIC PEPTIDE2 770.2 pg/mL (0-100)
[2019-07-23] MEDS ORDERED: INSULIN REGULAR, HUMAN 100 UNIT/1 ML 3ML VIAL IV ONE (08:45)
[2019-07-23 08:46] LABS: ABG HCO3 24 mmol/L (23-28); ABG PCO2 52 mmHg (41-51); ABG PH 7.27 (7.31-7.41); ABG PO2 419 mmHg (80-105)
--- NOTE | 2019-07-23 09:00 | NUR ---
LEFT AC 20 GUAGE PLACED BY EMT INFILTRATED WHILE IN CT SCAN. IV REMOVED
[2019-07-23 09:08] LABS: LYMPHOCYTES % (MANUAL) 19 % (19-48); MONOCYTES % (MANUAL) 8 % (3.4-9.0); NEUTROPHILS % (MANUAL) 73 % (40-74); PLATELET ESTIMATE MODERATELY DECREASED; PLATELET MORPHOLOGY COMMENT FEW GIANT; RBC MORPHOLOGY COMMENT NORMAL
--- NOTE | 2019-07-23 09:24 | NUR ---
I CANNOT VIEW XRAYS, I SPOKE WITH RADIOLOGY - THEY ARE HAVING PROBLEMS WITH PACS AND ARE WORKING ON IT
[2019-07-23] MEDS ORDERED: FUROSEMIDE INJ 10 MG/ML 4 ML VIAL IV NR (09:30)
[2019-07-23] MEDS ORDERED: VANCOMYCIN 1GM/NS 250 ML 250 ML IV ONE (09:45)
[2019-07-23] MEDS ORDERED: PREVACID30 MG PEG (09:55)
[2019-07-23] MEDS: LEVOFLOXACIN 500MG/D5W 100ML 100 ML IV SCH (10:05)
[2019-07-23] MEDS ORDERED: DEXTROSE 50% SYRINGE 50 ML IV PRN (10:45)
[2019-07-23 10:47] LABS: ABG HCO3 22 mmol/L (23-28); ABG PCO2 45 mmHg (41-51); ABG PO2 161 mmHg (80-105)
--- NOTE | 2019-07-23 10:59 | Diagnostic Imaging Report ---
EXAM: CT Chest WITH contrast- Pulmonary Embolism Protocol INDICATION: Shortness of breath, respiratory distress. COMPARISON: CT Abdomen/Pelvis 04/06/2019. TECHNIQUE: Chest was scanned utilizing a multidetector helical scanner from the lung apex through the level of the diaphragm after administration of IV contrast. Thin section reconstructions were obtained with special concentration on the pulmonary arteries. Coronal and sagittal reformations were obtained. Pulmonary embolism protocol was performed. IV CONTRAST: 100 cc of Isovue 370 RADIATION DOSE: Total DLP: 871.5 mGy*cm Dose modulation, iterative reconstruction, and/or weight based adjustment of the mA/kV was utilized to reduce the radiation dose to as low as reasonably achievable. COMPLICATIONS: None FINDINGS: LINES/ TUBES: Left-sided pacemaker with leads terminating in the right atrium and right ventricle. PULMONARY ARTERIES: No filling defect is identified within the pulmonary arteries to the segmental level. The subsegmental pulmonary arteries are not well opacified. Main pulmonary artery measures 3.1 cm in diameter. LUNGS AND AIRWAYS: The central airways are patent. There are multifocal groundglass opacities present, most pronounced in the right upper lobe and bilateral lower lobes. There are patchy opacities in the left greater than right lower lobes. There is biapical pleural-parenchymal opacity, suggestive of prior granulomatous disease. There is a calcified granuloma in the lingula. Diffuse opacities limits evaluation for underlying pulmonary nodule. PLEURA: Moderate bilateral pleural effusions, right greater than left. HEART AND MEDIASTINUM: The thyroid gland is normal. No mediastinal, hilar or axillary lymphadenopathy. The heart is normal in size.. There is no pericardial effusion. Scattered atherosclerotic calcifications of the thoracic aorta, branch vessels, and coronary arteries. UPPER ABDOMEN: Limited contrast enhanced views of the upper abdomen. There is a 2.4 cm right hepatic lobe cyst. There is a 1.6 cm splenic hypodensity, better characterized on the prior abdominal CT, likely representing a cyst. BONES: No acute osseous abnormalities. No suspicious lytic or blastic lesions. Degenerative changes of the visualized spine. SOFT TISSUES: Unremarkable. IMPRESSION: No evidence of pulmonary embolism to the level of the segmental pulmonary arteries. Moderate right greater than left pleural effusions with multifocal groundglass opacities, likely representing pulmonary edema. Superimposed pneumonia is possible in the appropriate clinical setting. Suggest follow-up imaging to assess for resolution. Signed by: Dr. Braden Coleman MD on 07/23/2019 10:56 AM
--- NOTE | 2019-07-23 11:00 | Diagnostic Imaging Report ---
EXAMINATION: AP chest radiograph. INDICATION: Shortness of breath, respiratory distress. COMPARISON: None FINDINGS: TUBES and LINES: Left-sided pacemaker with leads overlying the right atrium and right ventricle. LUNGS: Lungs are well inflated. There are bilateral perihilar and interstitial opacities. There are patchy opacities in the bilateral lower lung zones. There is biapical pleural-parenchymal opacity. PLEURA: No pleural effusion or pneumothorax. HEART AND MEDIASTINUM: The cardiomediastinal silhouette is unremarkable. There are atherosclerotic calcifications within the aorta. BONES AND SOFT TISSUES: No acute osseous abnormality. UPPER ABDOMEN: No free air under the diaphragm. IMPRESSION: Findings suggestive of pulmonary edema. Superimposed pneumonia is possible in the appropriate clinical setting. Signed by: Dr. Braden Coleman MD on 07/23/2019 10:57 AM
--- OUTSIDE RECORDS SUMMARY | 2019-07-23 11:02 | XMS REPORT | Continuity of Care Document ---
Author Author [email or web address] Address Unknown Phone Unavailable Care Team Providers Care Dance Teacher Name Role Phone [facility] [facility] Information [facility] Unavailable Unavailable Problems Problem Status Onset Date Classification Date Reported Comments Source UNK Active 03/31/2017 [facility] LEFT ANKLE/FOOT DROP Active 03/17/[address] [facility] LEFT ANKLE/DROP FOOT Active 03/17/[address] [facility] LEFT ANKLE/DROP FOOT AND RIGHT HAND Active 03/17/[address] [facility] RIGHT HAND Active 01/21/[address] [facility] 415.19 Active 05/28/2015 [facility] Diabetes mellitus (disorder) Active Problem 07/25/2017 [facility] Gastroesophageal reflux disease (disorder) Active Problem 07/25/2017 [facility] Hypertensive disorder, systemic arterial (disorder) Active Problem 07/25/2017 [facility] Pulmonary embolism (disorder) Resolved Problem 07/25/2017 [facility] Sleep apnea (finding) Active Problem 07/25/2017 [facility] Tremor (finding) Active Problem 07/25/2017 [facility] Other lack of coordination 04/18/[address] [facility] FOOT DROP, LEFT FOOT Active [facility] MUSCLE WEAKNESS (GENERALIZED) Active [facility] DIFFICULTY IN WALKING, NOT ELSEWHERE CLA Active [facility] OTHER LACK OF COORDINATION Active [facility] CARPAL TUNNEL SYNDROME, RIGHT UPPER LIMB Active [facility] LESION OF ULNAR NERVE, RIGHT UPPER LIMB Active [facility] Medications Medication Details Route Status Patient Instructions Ordering Provider Order Date Source famotidine (ANES) Route: IV, Drug form: INJ, ONCE, Stop date: 04/09/17 7:19:00 CDT Inactive 04/09/2017 [facility] metoclopramide (ANES) Route: IV, Drug form: INJ, ONCE, Stop date: 04/09/17 7:19:00 CDT Inactive 04/09/2017 [facility] fentaNYL (ANES) Route: IV, Drug form: INJ, ONCE, Stop date: 04/09/17 7:18:00 CDT Inactive 04/09/2017 [facility] ondansetron (ANES) Route: IV, Drug form: INJ, ONCE, Stop date: 04/09/17 7:18:00 CDT Inactive 04/09/2017 [facility] ceFAZolin (ANES) Route: IV, Drug form: INJ, ONCE, Stop date: 04/09/17 7:18:00 CDT Inactive 04/09/2017 [facility] midazolam (ANES) Route: IV, Drug form: SOLN, ONCE, Stop date: 04/09/17 7:18:00 CDT Inactive 04/09/2017 [facility] propofol (ANES) Route: IV, Drug form: INJ, ONCE, Stop date: 04/09/17 7:18:00 CDT Inactive 04/09/2017 [facility] lidocaine (ANES) Route: IV, Drug form: INJ, ONCE, Stop date: 04/09/17 7:18:00 CDT Inactive 04/09/2017 [facility] ePHEDrine (ANES) Route: IV, Drug form: INJ, ONCE, Stop date: 04/09/17 7:18:00 CDT Inactive 04/09/2017 [facility] Hydromorphone 0.5 mg, Route: IVP, Q5Min, Dosing Weight 110.909, kg, PRN Pain Score 7-10, Start date: 04/09/17 7:06:00 CDT, Duration: 4 doses or times, Stop date: Limited # of times Inactive 04/09/2017 [facility] Ondansetron 4 mg, Route: IVP, ONCE, Dosing Weight 110.909, kg, PRN Nausea & Vomiting, Start date: 04/09/17 7:06:00 CDT Inactive 04/09/2017 [facility] Promethazine 6.25 mg, Route: IVPB, ONCE, Dosing Weight 110.909, kg, PRN Nausea & Vomiting, Start date: 04/09/17 7:06:00 CDT Inactive 04/09/2017 [facility] Meperidine 12.5 mg, Route: IVP, Q30Min, Dosing Weight 110.909, kg, PRN Other -See Comment, For shivering, Start date: 04/09/17 7:06:00 CDT, Duration: 2 doses or times, Stop date: Limited # of times Inactive 04/09/2017 [facility] Diphenhydramine 12.5 mg, Route: IVP, Drug form: INJ, Q6H, Dosing Weight 110.909, kg, PRN Itching, Start date: 04/09/17 7:06:00 CDT, Duration: 30 day, Stop date: 05/09/17 7:05:00 CDT Inactive 04/09/2017 [facility] Naloxone 0.4 mg, Route: IVP, Q2MIN, Dosing Weight 110.909, kg, PRN Narcotic Reversal, Start date: 04/09/17 7:06:00 CDT, Duration: 8 doses or times, Stop date: Limited # of times Inactive 04/09/2017 [facility] Albuterol 0.83 MG/ML Inhalant Solution 2.49 mg, Route: NEB, Q20Min, Dosing Weight 110.909, kg, PRN Wheezing, Priority: STAT, Start date: 04/09/17 7:06:00 CDT, Duration: 30 day, Stop date: 05/09/17 7:05:00 CDT Inactive 04/09/2017 [facility] Flumazenil 0.2 mg, Route: IVP, PRN, Dosing Weight 110.909, kg, PRN Benzodiazepine Reversal, Initial dose, Start date: 04/09/17 7:06:00 CDT, Duration: 30 day, Stop date: 05/09/17 7:05:00 CDT Inactive 04/09/2017 [facility] Hydralazine 10 mg, Route: IVP, Q20Min, Dosing Weight 110.909, kg, PRN Elevated BP, Start date: 04/09/17 7:06:00 CDT, Duration: 2 doses or times, Stop date: Limited # of times Inactive 04/09/2017 [facility] Labetalol 10 mg, Route: IVP, Q5Min, Dosing Weight 110.909, kg, PRN Elevated BP, Start date: 04/09/17 7:06:00 CDT, Duration: 5 doses or times, Stop date: Limited # of times Inactive 04/09/2017 [facility] esmolol 10 mg, Route: IVP, Q5Min, Dosing Weight 110.909, kg, PRN Other -See Comment, Start date: 04/09/17 7:06:00 CDT, Duration: 5 doses or times, Stop date: Limited # of times Inactive 04/09/2017 [facility] Acetaminophen 1,000 mg, Route: PO, Drug form: TAB, ONCE, Dosing Weight 110.909, kg, PRN Pain Score 1-3, Start date: 04/09/17 7:06:00 CDT, Duration: 1 doses or times, Stop date: Limited # of times Inactive 04/09/2017 [facility] Oxycodone 5 mg, Route: PO, Drug form: TAB, Q4H, Dosing Weight 110.909, kg, PRN Pain Score 4-6, Start date: 04/09/17 7:06:00 CDT, Duration: 30 day, Stop date: 05/09/17 7:05:00 CDT Inactive 04/09/2017 [facility] Calcium Chloride 0.0014 MEQ/ML / Potassium Chloride 0.004 MEQ/ML / Sodium Chloride 0.103 MEQ/ML / Sodium Lactate 0.028 MEQ/ML Injectable Solution 1,000 mL, Rate: 125 ml/hr, Infuse over: 8 hr, Route: IV, Dosing Weight 110.909 kg, Total Volume: 1,000, Start date: 04/09/17 7:06:00 CDT, Duration: 30 day, Stop date: 05/09/17 7:05:00 CDT Inactive 04/09/2017 [facility] Tramadol 50 mg, Route: PO, Drug form: TAB, ONCE, Dosing Weight 110.909, kg, Start date: 04/09/17 7:03:00 CDT, Stop date: 04/09/17 7:03:00 CDT, .. Inactive 04/09/2017 [facility] Acetaminophen 325 MG / Hydrocodone Bitartrate 5 MG Oral Tablet 1 tab, Route: PO, Dosing Weight 110.909, kg, ONCE, Start date: 04/09/17 7:03:00 CDT, Stop date: 04/09/17 7:03:00 CDT, .. Inactive 04/09/2017 [facility] Tramadol 50 mg, Route: PO, Drug form: TAB, Q6H, Dosing Weight 110.909, kg, PRN Pain Score 1-3, Start date: 04/09/17 7:00:00 CDT, Duration: 30 day, Stop date: 05/09/17 6:59:00 CDT Inactive 04/09/2017 [facility] Hydromorphone 0.5 mg, Route: IVP, Q3H, Dosing Weight 110.909, kg, PRN Pain Score 4-6, Start date: 04/09/17 7:00:00 CDT, Duration: 30 day, Stop date: 05/09/17 6:59:00 CDT Inactive 04/09/2017 [facility] Acetaminophen 325 MG / Hydrocodone Bitartrate 10 MG Oral Tablet 1 tab, Route: PO, Dosing Weight 110.909, kg, Q4H, PRN Pain Score 4-6, Start date: 04/09/17 7:00:00 CDT, Duration: 30 day, Stop date: 05/09/17 6:59:00 CDT Inactive 04/09/2017 [facility] Acetaminophen 650 mg, Route: PO, Drug form: TAB, Q4H, Dosing Weight 110.909, kg, PRN Pain 1-3/Temp > 100.4 F, Start date: 04/09/17 7:00:00 CDT, Duration: 30 day, Stop date: 05/09/17 6:59:00 CDT Inactive 04/09/2017 [facility] LR 1000 mL INJ (ANES) Route: IV, Total Volume: 1,000, Start date: 04/09/17 6:15:00 CDT, Stop date: 04/09/17 7:15:00 CDT Inactive 04/09/2017 [facility] Insulin regular 10 unit, Route: IVP, ONCE, Dosing Weight 110.909, kg, Start date: 04/09/17 5:49:00 CDT, Stop date: 04/09/17 5:49:00 CDT Inactive 04/09/2017 [facility] Albuterol 0.833 MG/ML / Ipratropium [place] 0.167 MG/ML Inhalant Solution 3 mL, Route: NEB, Dosing Weight 110.909, kg, ONCE, STAT, Start date: 04/09/17 5:49:00 CDT, Stop date: 04/09/17 5:49:00 CDT Inactive 04/09/2017 [facility] Calcium Chloride 0.0014 MEQ/ML / Potassium Chloride 0.004 MEQ/ML / Sodium Chloride 0.103 MEQ/ML / Sodium Lactate 0.028 MEQ/ML Injectable Solution 1,000 mL, Rate: 25 ml/hr, Infuse over: 40 hr, Route: IV, Dosing Weight 110.909 kg, Total Volume: 1,000, Start date: 04/09/17 5:49:00 CDT, Duration: 30 day, Stop date: 05/09/17 5:48:00 CDT Inactive 04/09/2017 [facility] Cephalexin 500 MG Oral Capsule [Keflex] 500 mg=1 cap, PO, QID, X 10 day, # 40 cap, 0 Refill(s) Active 04/08/2017 [facility] Ocuvite 1 tab, PO, Daily, 0 Refill(s) Active 04/03/2017 [facility] Garlic Oil oral capsule 0 Refill(s) Active 04/03/2017 [facility] vitamin E 400 intl units oral capsule 400 IntlUnit=1 cap, PO, BID, 0 Refill(s) Active 04/03/2017 [facility] pantoprazole 40 MG Enteric Coated Tablet [Protonix] 40 mg=1 tab, PO, BID, 0 Refill(s) Active 04/03/2017 [facility] primidone 50 mg oral tablet 50 mg=1 tab, PO, QID, 0 Refill(s) Active 04/03/2017 [facility] dorzolamide 20 MG/ML Ophthalmic Solution 1 drp, RIGHT EYE, BID, # 10 mL, 0 Refill(s) Active 04/03/2017 [facility] latanoprost 0.05 MG/ML Ophthalmic Solution 1 drp, BOTH EYES, QPM, 0 Refill(s) Active 04/03/2017 [facility] AMIODarone 200 mg oral tablet 200 mg=1 tab, PO, Daily, 0 Refill(s) Active 04/03/2017 [facility] rivaroxaban 20 MG Oral Tablet [Xarelto] 20 mg=1 tab, PO, QPM, # 30 tab, 3 Refill(s) Active 04/03/2017 [facility] 24 HR Metoprolol Tartrate 100 MG Extended Release Tablet [Toprol] 100 mg=1 tab, PO, BID, 0 Refill(s) Active 04/03/2017 [facility] finasteride 5 mg oral tablet 5 mg=1 tab, PO, Daily, 0 Refill(s) Active 04/03/2017 [facility] Bromocriptine 0.8 MG Oral Tablet [Cycloset] 1.6 mg=2 tab, PO, QAM, 0 Refill(s) Active 04/03/2017 [facility] glimepiride 2 mg oral tablet 2 mg=1 tab, PO, BID, 0 Refill(s) Active 04/03/2017 [facility] naproxen 375 mg oral tablet 375 mg=1 tab, PO, BID, 0 Refill(s) Active 04/03/2017 [facility] sitagliptin 100 MG Oral Tablet [Januvia] 100 mg=1 tab, PO, Daily, 0 Refill(s) Active 04/03/2017 [facility] simvastatin 10 mg oral tablet 10 mg=1 tab, PO, Bedtime, 0 Refill(s) Active 04/03/2017 [facility] alfuzosin 10 mg oral tablet, extended release 10 mg=1 tab, PO, Daily, 0 Refill(s) Active 04/03/2017 [facility] Allergies, Adverse Reactions, Alerts Substance Category Reaction Severity Reaction type Status Date Reported Comments Source [place] Assertion Drug allergy Active [facility] Soma Assertion Drug allergy Active [facility] Immunizations No Data Provided for This Section [...] should be multiplied by the estimated BMI. [facility] CHEM PANEL Potassium Lvl 4.5 3.5 - 5.1 04/03/2017 [facility] CHEM PANEL Chloride Lvl 105 95 - 109 04/03/2017 [facility] CHEM PANEL Calcium Lvl 9.2 8.5 - 10.5 04/03/2017 [facility] CHEM PANEL CO2 26 24 - 32 04/03/2017 [facility] CHEM PANEL BUN 17 7 - 22 04/03/2017 [facility] CHEM PANEL Creatinine Lvl 1.10 0.50 - 1.40 04/03/2017 [facility] CHEM PANEL Glucose Lvl 199 70 - 99 04/03/2017 [facility] CHEM PANEL Sodium Lvl 138 135 - 145 04/03/2017 [facility] CHEM PANEL AGAP 11.5 10.0 - 20.0 [...] HEMATOLOGY Hgb 15.0 14.0 - 18.0 04/03/2017 [facility] HEMATOLOGY MCH 29.6 27.0 - 31.0 04/03/2017 [facility] HEMATOLOGY MCV 85.5 80.0 - 94.0 04/03/2017 [facility] HEMATOLOGY RBC 5.06 4.70 - 6.10 04/03/2017 [facility] HEMATOLOGY RDW 14.3 11.5 - 14.5 04/03/2017 [facility] HEMATOLOGY MCHC 34.6 32.0 - 36.0 04/03/2017 [facility] HEMATOLOGY MPV 7.7 7.4 - 10.4 04/03/2017 [facility] HEMATOLOGY Platelet 162 133 - 450 04/03/2017 [facility] Pathology Reports No Data Provided for This Section Diagnostic Reports Report Value Date Source Chest 2 views DX Patient Name: SHERRY KAPLAN : 1940; Age: 76 years y/o Male MR: [id number] * CHEST, 2 views HISTORY: Coughing COMPARISON: [...] a left subclavian dual-lead transvenous pacemaker. SL: [id number] 04/03/2017 [facility] Consultation Notes No Data Provided for This Section Discharge Summaries No Data Provided for This Section History and Physicals No Data Provided for This Section Vital Signs Vital Sign Value Date Comments Source Respitory Rate 16 04/09/2017 [facility] Heart Rate 60 04/09/2017 [facility] Systolic (mm Hg) 149 04/09/2017 [facility] Diastolic (mm Hg) 67 04/09/2017 [facility] Respitory Rate 14 04/09/2017 [facility] Systolic (mm Hg) 140 04/09/2017 [facility] Diastolic (mm Hg) 63 04/09/2017 [facility] Respitory Rate 16 04/09/2017 [facility] Systolic (mm Hg) 139 04/09/2017 [facility] Diastolic (mm Hg) 65 04/09/2017 [facility] Temperature Oral (F) 97.9 F 04/03/2017 [facility] Heart Rate 62 04/03/2017 [facility] BMI Calculated 31.39 04/03/2017 [facility] Weight 110.909 04/03/2017 [facility] Height 187.96 cm 04/03/2017 [facility] Encounters Location Location Details Encounter Type Encounter Number Reason For Visit Attending Provider ADM Date DC Date Status Source [facility] OP Therapy Patients [id number] Mendy Reardondar 03/17/2017 04/16/[address] [facility] [id number] Jairon Boyern 04/09/2017 04/09/2017 [facility] [place] [facility] Patients [id number] Mendy Bradfordmundar 04/21/2017 05/21/[address] [facility] OP Therapy Patients [id number] Jairon Negron 05/21/2017 06/20/[address] [facility] OP Therapy Patients [id number] Jairon Negron 06/23/2017 07/23/2017 [facility] Procedures Procedure Code Date Perfomer Comments Source Insertion of cardiac pacemaker [id number] 07/07/2012 [facility] Arthroplasty of knee [id number] [facility] Cataract extraction and insertion of intraocular lens [id number] [facility] Discectomy [id number] [facility] Assessment and Plan No Data Provided for This Section Plan of Care No Data Provided for This Section Social History Social History Date Source Social History TypeResponse Substance Abuse Use: None. Alcohol Never Smoking Status Former smoker; Exposure to Tobacco Smoke None; Cigarette Smoking Last 365 Days No; Reg Smoking Cessation Counseling No 04/03/[address] [facility] Social History TypeResponse Substance Abuse Use: None. Alcohol Never Smoking Status Former smoker; Exposure to Tobacco Smoke None; Cigarette Smoking Last 365 Days No; Reg Smoking Cessation Counseling No 04/03/2017 [facility] Family History No Data Provided for This Section Advance Directives No Data Provided for This Section Functional Status No Data Provided for This Section
[2019-07-23] MEDS: CEFEPIME 2 GM/NS 0.9% 100 ML 100 ML IV SCH ×2 (11:07→21:05)
[2019-07-23] MEDS: IPRATROPIUM BROMIDE 0.02% 2.5 ML NEB NEB SCH ×4 (11:20→22:55)
[2019-07-23] MEDS: ALBUTEROL SULF 0.083% NEB SOLN 3 ML NEB NEB SCH ×4 (11:20→22:55)
[2019-07-23 11:29] LABS: BILIRUBIN,URINE NEGATIVE (NEGATIVE); CLARITY,URINE CLEAR (CLEAR); COLOR,URINE YELLOW (YELLOW); KETONES,URINE NEGATIVE (NEGATIVE); LEUKOCYTE ESTERASE ,URINE NEGATIVE (NEGATIVE); NITRITE,URINE NEGATIVE (NEGATIVE); PROTEIN,URINE DIPSTICK 2+ (NEGATIVE); URINE UROBILINOGEN 0.2 mg/dL (0.2 - 1)
[2019-07-23 11:47] LABS: BACTERIA,URINE RARE /HPF
[2019-07-23 11:48] LABS: EPITHELIAL CELLS,URINE FEW /LPF
[2019-07-23] MEDS: INSULIN LISPRO 100 UNIT/1 ML 3ML VIAL SQ SCH ×3 (12:46→21:04)
[2019-07-23] MEDS ORDERED: SODIUM CHLORIDE 0.9% 50ML 50 ML ONE (14:03)
[2019-07-23] MEDS ORDERED: IOPAMIDOL 370 MG/ML 200 ML INFUS..BTL INJ ONE (14:04)
[2019-07-23] MEDS: NITROGLYCERIN 2% OINT 1 GM PKT TOP SCH ×2 (14:17→18:20)
[2019-07-23] MEDS ORDERED: INFLUENZA VIRUS VAC SPLIT INJ 0.5 ML SYR IM SCH (18:20)
[2019-07-23] MEDS ORDERED: PNEUMOCOCCAL VACCINE POLYVALENT 23 MCG/0.5 ML VIAL IM NR (18:30)
--- NOTE | 2019-07-23 18:42 | NUR ---
patient weaned off bipap to 3L nasal cannula. tolerating nc well. 97%. pt alert and oriented. following commands. in good spirits. states he is feeling much better now. flu vaccines are not available at [facility] [place] at this time. pt okay to f/u with pcp for flu vaccine
[2019-07-23] MEDS: FUROSEMIDE INJ 10 MG/ML 4 ML VIAL IV SCH (20:57)
[2019-07-24] VITALS (14 sets, daily range): BP systolic 130–165; BP diastolic 41–126
--- NOTE | 2019-07-24 01:50 | Consultation ---
DATE OF CONSULTATION: 07/23/2019 Cardiology Consult Note REASON FOR CONSULT: Acute congestive heart failure exacerbation. CHIEF COMPLAINT: Shortness of breath. HISTORY OF PRESENT ILLNESS: The patient is an 79-year-old man with history of pacemaker placement, who is known to our office. He was recently seen in the office and an echocardiogram and a stress test performed. The patient does not know the results. He says he was in usual state of health until yesterday. He did not feel well and went to sleep, woke up in the middle of the night early this morning around 3 am and started feeling short of breath. He could not get his BiPAP back on that he uses for sleep apnea and his bleeding continued to worsen and this is why he had to come to the emergency room. In the emergency room, he was found to have pulmonary edema and pleural effusion. He was given IV diuretics and currently he is feeling better. Denies any chest pain. History of MO or coronary artery disease. Otherwise, the patient does not have a previous diagnosis of heart failure. PAST MEDICAL HISTORY: 1. Hypertension. 2. Hyperlipidemia. 3. Status post pacemaker placement. 4. Diabetes. SOCIAL HISTORY: The patient is a former smoker, quit many years ago. Does not drink or abuse drugs. FAMILY HISTORY: Noncontributory. REVIEW OF SYSTEMS: As per HPI, otherwise negative. OUTPATIENT MEDICATIONS: Reviewed. ALLERGIES: THE PATIENT IS ALLERGIC TO TELITHROMYCIN. OBJECTIVE: VITAL SIGNS: Temperature afebrile, pulse 60, respiratory rate 22, blood pressure 152/74, saturating 99% on 4 L nasal cannula. GENERAL: Elderly, in no acute distress. CARDIOVASCULAR: Regular rate and rhythm. No murmurs, rubs, or gallops. LUNGS: Bibasilar rales with decreased breath sounds at the bases. ABDOMEN: Obese, soft, nontender, nondistended. NEURO AND PSYCH: Alert and oriented to person, place, and time. Normal affect. INPATIENT MEDICATIONS: Reviewed. LABORATORY DATA: Reviewed. Notable for creatinine of 1.4, glucose of 401. Troponins negative x2. BNP of 770. Potassium of 5.4. IMAGING DATA: Reviewed. Chest x-ray shows pulmonary vascular congestion and pulmonary edema. Chest CT done, which shows no evidence of pulmonary embolism. Moderate right greater than left pleural effusion with ground-glass opacities likely representing pulmonary edema. TELEMETRY DATA: Reviewed, shows normal sinus rhythm. EKG reviewed. No acute ischemic changes. ASSESSMENT: 1. Acute congestive heart failure exacerbation. 2. Pulmonary edema. 3. Acute kidney injury. 4. Hypertension. 5. Hyperlipidemia. 6. Diabetes. PLAN: Continue IV diuretics. We will start him on optimal heart failure regimen. We will follow up on the echo and the stress test findings at the office and discussed options with the patient regarding needing further ischemic workup. Thank you for this consult. We will continue to follow. MD JEM Lira/MIREILLEL /[id number]
[2019-07-24] MEDS: ALBUTEROL SULF 0.083% NEB SOLN 3 ML NEB NEB SCH ×6 (02:30→23:45)
[2019-07-24] MEDS: IPRATROPIUM BROMIDE 0.02% 2.5 ML NEB NEB SCH ×6 (02:30→23:45)
[2019-07-24 02:50] LABS: CREATINE KINASE MB 0.5 ng/mL (0-5.0)
[2019-07-24 05:26] LABS: BASOPHILS % 0.1 % (0.0-1.0); EOSINOPHILS % 0.1 % (0.0-6.0); HEMATOCRIT 37.6 % (38.2-49.6); LYMPHOCYTES # (AUTO) 0.9 (1.0-3.2); LYMPHOCYTES % 11.2 % (18.0-39.1); MEAN CORPUSCULAR HEMOGLOBIN 28.7 pg (28-32); MEAN CORPUSCULAR HGB CONC 31.9 g/dL (31-35); MONOCYTES # (AUTO) 0.9 (0.2-0.8); MONOCYTES % 10.3 % (4.4-11.3); NEUTROPHILS # (AUTO) 6.5 (2.1-6.9); NEUTROPHILS % 77.8 % (38.7-80.0); PLATELET COUNT 119 x10e3/uL (140-360); RED BLOOD COUNT 4.18 x10e6/uL (4.3-5.7)
[2019-07-24 05:54] LABS: ALBUMIN 2.8 g/dL (3.5-5.0); ALBUMIN/GLOBULIN RATIO 0.8 (0.8-2.0); ANION GAP 13.2 mmol/L (8-16); CALCIUM 9.8 mg/dL (8.4-10.2); CREATININE, SERUM 1.42 mg/dL (0.72-1.25); POTASSIUM 5.2 mmol/L (3.5-5.1)
[2019-07-24] MEDS: NITROGLYCERIN 2% OINT 1 GM PKT TOP SCH ×4 (06:29→16:50)
[2019-07-24] MEDS ORDERED: GLIMEPIRIDE PO SCH (07:30)
[2019-07-24] MEDS: INSULIN LISPRO 100 UNIT/1 ML 3ML VIAL SQ SCH ×4 (07:54→20:15)
[2019-07-24] MEDS: GLIMEPIRIDE 2 MG TAB PO SCH (07:56)
[2019-07-24] MEDS: LEVOFLOXACIN 500MG/D5W 100ML 100 ML IV SCH (08:46)
[2019-07-24] MEDS: FUROSEMIDE INJ 10 MG/ML 4 ML VIAL IV SCH ×2 (08:46→20:16)
[2019-07-24] MEDS ORDERED: ALFUZOSIN HCL 10 MG PO SCH (09:00)
[2019-07-24] MEDS ORDERED: NON-FORMULARY MEDICATION ([Jardiance] 25 MG) PO SCH ×3 (09:00)
[2019-07-24] MEDS ORDERED: NAPROXEN 375 MG PO SCH (09:00)
[2019-07-24] MEDS ORDERED: FINASTERIDE 5 MG TAB PO SCH (09:00)
[2019-07-24] MEDS ORDERED: NAPROXEN 250 MG TAB PO SCH (09:00)
[2019-07-24] MEDS ORDERED: PRIMIDONE 50 MG TAB PO SCH (09:00)
[2019-07-24] MEDS: ALFUZOSIN HCL 10 MG PO SCH (09:00)
[2019-07-24] MEDS ORDERED: METOPROLOL SUCCINATE 50 MG TAB XL PO SCH (09:00)
[2019-07-24] MEDS ORDERED: SITAGLIPTIN 100 MG TAB PO SCH (09:00)
[2019-07-24] MEDS ORDERED: NON-FORMULARY MEDICATION (Dorzolamide Hcl/Timolol Maleat (Dorzolamide-Timolol Eye Drops) 1 OP SCH (09:00)
[2019-07-24] MEDS ORDERED: NON-FORMULARY MEDICATION (Simvastatin 10 MG) PO SCH (09:00)
[2019-07-24] MEDS ORDERED: NON-FORMULARY MEDICATION (Metoprolol Succinate 100 MG) PO SCH (09:00)
[2019-07-24] MEDS: AMIODARONE HCL 200 MG TAB PO SCH (09:03)
[2019-07-24] MEDS: PANTOPRAZOLE SOD 40 MG TABEC PO SCH (09:04)
[2019-07-24] MEDS: PRIMIDONE 50 MG TAB PO SCH ×2 (09:04→16:50)
[2019-07-24] MEDS: VITAMIN E 400 UNIT CAP PO SCH ×2 (09:04→16:50)
[2019-07-24] MEDS: GABAPENTIN 300 MG CAP PO SCH ×2 (09:04→16:50)
[2019-07-24] MEDS: METOPROLOL SUCCINATE 50 MG TAB XL PO SCH ×2 (09:04→16:50)
[2019-07-24] MEDS: CARVEDILOL 12.5 MG TAB PO SCH ×2 (09:04→16:50)
[2019-07-24] MEDS: OCUVITE PRESERVISION TABLET PO SCH (09:04)
[2019-07-24] MEDS: RIVAROXABAN 20 MG TABLET PO SCH (09:05)
[2019-07-24] MEDS: DORZOLAMIDE HCL (OPTH) 10 ML BOTTLE OP SCH ×2 (10:17→16:36)
[2019-07-24] MEDS: TIMOLOL MALEATE 0.5% OPTH DRP 5 ML BTL OP SCH ×2 (10:18→16:36)
--- NOTE | 2019-07-24 12:22 | History and Physical ---
REASON FOR ADMISSION: An 79-year-old male, who was in ICU 191, comes in with acute shortness of breath and was diagnosed with congestive heart failure. . HISTORY OF PRESENT ILLNESS: Mr. Galvez is an 79-year-old gentleman with a history of diabetes mellitus, hypertension, hyperlipidemia, BPH, and uncontrolled diabetes, was in usual state of health until about 2-3 days prior to admission. The patient started out with shortness of breath. When he woke up on the morning of admission, the patient started an increased amount of shortness of breath and also had excessive pedal edema. The patient came to the emergency room, was found to have acute respiratory failure. The gases showed acidosis. The patient was put on BiPAP and the patient did get better, and the patient was transferred to the ICU for immediate care and intensive care. PAST MEDICAL HISTORY: History of hypertension, history of hyperlipidemia, history of uncontrolled diabetes mellitus, history of neuropathy, history of sleep apnea, and history of glaucoma and restless legs syndrome. The patient's additional medical history includes atrial fibrillation. MEDICATIONS: He takes at home: 1. Uroxatral or Alfuzosin for BPH. 2. Amiodarone 200 mg daily. 3. The patient takes timolol maleate. 4. Finasteride 5 mg. 5. Gabapentin 300 mg. 6. Garlic one tablet daily. 7. Glimepiride 3 mg daily. 8. Lansoprazole 30 mg daily. 9. Latanoprost 2.5 mL drops. 10. Metoprolol 100 mg extended release. 11. Naproxen 375 mg daily. 12. Primidone 50 mg daily. 13. Xarelto 20 mg daily. 14. Simvastatin 10 mg daily. 15. Sitagliptin or Januvia 100 mg daily. 16. Jardiance 25 mg daily. 17. Trulicity 0.5 mg daily. PAST SURGICAL HISTORY: History of ear tubes put in, history of cataract surgery in the left eye. The patient with pacemaker and left knee surgery and neck surgery. FAMILY HISTORY: Arthritis and diabetes and cancer in father. Mother with cancer, history of colon cancer and myocardial infarction in father. REVIEW OF SYSTEMS: Negative for chest pain. Positive for shortness of breath. Positive for pedal edema. No nausea. No vomiting. No diarrhea. No constipation. No rectal bleeding. No hematochezia. No hematemesis. No blurry vision or diplopia. Positive for some headaches. ALLERGIES: THE PATIENT IS ALLERGIC TO SOMA AND TO ERYTHROMYCIN. PHYSICAL EXAMINATION: GENERAL: The patient is alert and oriented x3, in ICU. The patient has received Lasix, diuresing as quickly. VITAL SIGNS: The patient's temperature is 99, pulse of 60, blood pressure is 146/55, pulse oximetry of 95% on nasal cannula 4 L. HEENT: Normocephalic, atraumatic. The patient is obese. CVS: S1, S2. Regular. ABDOMEN: Nontender, nondistended. EXTREMITIES: Positive for edema. LABORATORY VALUES: Initial white count is 12.34, hemoglobin of 15, hematocrit of 45. The patient's neutrophil count was 8.9. Chemistries show sodium of 138, potassium is 5.2, 5.4 yesterday and 5.2 today, BUN of 30, creatinine of 1.42, EGFR is 48%, glucose of 185. The patient's CK, CK-MB, and troponins have been trended to be negative. One more set remaining. Coags are normal. INR is 1.95. Blood gas in the ER was 7.3 of pH, pCO2 of 45, which came down to 52 for the first set, pO2 from . IMAGING STUDIES: Chest x-ray shows findings suggestive of pulmonary edema. Superimposed pneumonia is possible in the appropriate clinical setting. CT lungs show no evidence for embolism to the left lobe of segmental pulmonary arteries. Moderate right greater than left pleural effusion with multifocal ground-glass opacities, likely representing pulmonary edema. MICROBIOLOGY: Urine culture and blood cultures are pending. ASSESSMENT AND PLAN: 1. Acute congestive heart failure. The patient's echo has been done in Dr. Sykes's office. We will retrieve it or Dr. Antonio is aware of it. 2. Atrial fibrillation. Continue on anticoagulation and also amiodarone. 3. Hypertension. Continue antihypertensive. 4. Diabetes, uncontrolled. We will restart his home medications. 5. Pleural effusion secondary probably from congestive heart failure. We will watch it. 6. Leukocytosis. The patient's white count has come down. We will drop his cefepime off and continue on Levaquin until resolution of symptoms. Further recommendation per clinical course. We will continue to monitor the patient and will be transferring the patient from ICU to [facility] with telemetry. Further recommendation per clinical course. We will continue to monitor the patient. 7. The patient also has additional diagnosis hyperkalemia, which has persisted today. A consult with Nephrology would be warranted if he continues to be hypokalemic. MD SIM Michaels/TYSON /[id number]
--- NOTE | 2019-07-24 16:33 | NUR ---
assisted patient out of bed to chair. tolerating well. all linen changed.
[2019-07-24] MEDS ORDERED: GLIMEPIRIDE 2 MG TAB PO SCH (17:00)
--- NOTE | 2019-07-24 17:46 | NUR ---
patient back to bed with moderate assistance. sob with exertion. tolerated well
[2019-07-24] MEDS: FINASTERIDE 5 MG TAB PO SCH (20:16)
[2019-07-24] MEDS: LATANOPROST(OPTH) 2.5 ML BTL OU SCH (20:16)
[2019-07-24] MEDS: SITAGLIPTIN 100 MG TAB PO SCH (20:16)
[2019-07-24] MEDS: SIMVASTATIN 20 MG TAB PO SCH (20:16)
[2019-07-25] VITALS (12 sets, daily range): BP systolic 111–172; BP diastolic 44–78
[2019-07-25] MEDS: ALBUTEROL SULF 0.083% NEB SOLN 3 ML NEB NEB SCH ×6 (03:00→23:30)
[2019-07-25] MEDS: IPRATROPIUM BROMIDE 0.02% 2.5 ML NEB NEB SCH ×6 (03:00→23:30)
[2019-07-25 05:04] LABS: BASOPHILS % 0.2 % (0.0-1.0); EOSINOPHILS # (AUTO) 0.1 (0.0-0.4); EOSINOPHILS % 0.6 % (0.0-6.0); HEMOGLOBIN 11.7 g/dL (14.0-18.0); LYMPHOCYTES % 11.6 % (18.0-39.1); MEAN CORPUSCULAR HGB CONC 32.5 g/dL (31-35); MEAN CORPUSCULAR VOLUME 89.1 fL (81-99); MONOCYTES # (AUTO) 0.8 (0.2-0.8); MONOCYTES % 9.7 % (4.4-11.3); NEUTROPHILS # (AUTO) 6.5 (2.1-6.9); NEUTROPHILS % 77.2 % (38.7-80.0); PLATELET COUNT 129 x10e3/uL (140-360); RED BLOOD COUNT 4.04 x10e6/uL (4.3-5.7); RED CELL DISTRIBUTION WIDTH 13.8 % (11.7-14.4)
[2019-07-25 05:19] LABS: ALBUMIN 2.6 g/dL (3.5-5.0); ALBUMIN/GLOBULIN RATIO 0.7 (0.8-2.0); ANION GAP 13.2 mmol/L (8-16); CALCIUM 9.7 mg/dL (8.4-10.2); CREATININE, SERUM 1.35 mg/dL (0.72-1.25); MAGNESIUM 2.1 MG/DL (1.3-2.1); POTASSIUM 4.2 mmol/L (3.5-5.1)
[2019-07-25] MEDS: NITROGLYCERIN 2% OINT 1 GM PKT TOP SCH ×4 (05:52→19:01)
[2019-07-25] MEDS ORDERED: ACETAMINOPHEN 325 MG TAB PO PRN (07:00)
[2019-07-25] MEDS: GLIMEPIRIDE 2 MG TAB PO SCH (07:36)
[2019-07-25] MEDS: INSULIN LISPRO 100 UNIT/1 ML 3ML VIAL SQ SCH ×4 (07:40→20:46)
[2019-07-25] MEDS: AMIODARONE HCL 200 MG TAB PO SCH (07:58)
[2019-07-25] MEDS: LEVOFLOXACIN 500MG/D5W 100ML 100 ML IV SCH (07:58)
[2019-07-25] MEDS: FUROSEMIDE INJ 10 MG/ML 4 ML VIAL IV SCH ×3 (07:58→20:47)
[2019-07-25] MEDS: OCUVITE PRESERVISION TABLET PO SCH (07:59)
[2019-07-25] MEDS: PANTOPRAZOLE SOD 40 MG TABEC PO SCH (07:59)
[2019-07-25] MEDS: CARVEDILOL 12.5 MG TAB PO SCH (07:59)
[2019-07-25] MEDS: PRIMIDONE 50 MG TAB PO SCH ×2 (07:59→17:07)
[2019-07-25] MEDS: GABAPENTIN 300 MG CAP PO SCH ×2 (07:59→17:07)
[2019-07-25] MEDS: METOPROLOL SUCCINATE 50 MG TAB XL PO SCH ×2 (08:00→17:08)
[2019-07-25] MEDS: VITAMIN E 400 UNIT CAP PO SCH ×2 (08:00→17:08)
[2019-07-25] MEDS: RIVAROXABAN 20 MG TABLET PO SCH (08:00)
[2019-07-25] MEDS: TIMOLOL MALEATE 0.5% OPTH DRP 5 ML BTL OP SCH ×2 (08:25→17:07)
[2019-07-25] MEDS: DORZOLAMIDE HCL (OPTH) 10 ML BOTTLE OP SCH ×2 (08:25→17:07)
--- NOTE | 2019-07-25 08:55 | Diagnostic Imaging Report ---
EXAMINATION: CHEST SINGLE (PORTABLE) INDICATION: Shortness of breath COMPARISON: Chest radiograph of 07/23/2019 FINDINGS: LINES/TUBES:Left chest pacer with leads in unchanged position. EKG leads overlie the chest. LUNGS:The lungs are moderately inflated. There is perihilar fullness and indistinctness of the pulmonary vasculature. No focal consolidation. PLEURA:Possible trace bilateral pleural effusions, decreased compared to 07/23/2019. No pneumothorax. MEDIASTINUM:Cardiomediastinal silhouette is stably enlarged. BONES/SOFT TISSUES:No acute osseous injury. ABDOMEN:No free air under the diaphragm. IMPRESSION: Interval worsening of pulmonary edema. Stable cardiomegaly. Possible trace bilateral pleural effusions, decreased compared to 07/23/2019. Signed by: Teressa Mehta MD on 07/25/2019 8:52 AM
[2019-07-25] MEDS: ALFUZOSIN HCL 10 MG PO SCH (09:00)
[2019-07-25] MEDS ORDERED: LISINOPRIL 10 MG TAB PO ONE (11:00)
[2019-07-25] MEDS ORDERED: FUROSEMIDE INJ 10 MG/ML 4 ML VIAL IV ONE (13:00)
--- NOTE | 2019-07-25 13:02 | Progress Note ---
DATE: 07/25/2019 Cardiology Progress Note SUBJECTIVE: The patient denies chest pain. He does endorse shortness of breath. OBJECTIVE: VITAL SIGNS: Temperature 99.3 degrees, pulse 60, respiratory rate 20, blood pressure 150/61, oxygen saturation 96% on BiPAP. GENERAL: Elderly man, in no acute distress. Awake and alert. LUNGS: Decreased breath sounds at the bases. CARDIOVASCULAR: Normal rate, regular rhythm. No murmur. Normal S1, S2. ABDOMEN: Soft, nontender. EXTREMITIES: No edema. CARDIAC MEDICATIONS: Metoprolol succinate 100 mg p.o. b.i.d., Xarelto 20 mg p.o. daily, carvedilol 6.25 mg p.o. b.i.d., amiodarone 200 mg p.o. daily, furosemide 40 mg IV q.12 hours, simvastatin 10 mg p.o. at bedtime. LABORATORY DATA: WBC 8.37, hemoglobin 11.7, hematocrit 36, platelets 129. Sodium 135, potassium 4.2, chloride 101, CO2 of 25, BUN 33, creatinine 1.35. Chest x-ray, of pulmonary edema. Stable cardiomegaly, possible trace bilateral pleural effusions, decreased compared to 07/23/2019. TELEMETRY: V paced. IMPRESSION: 1. Acute on chronic diastolic heart failure with preserved left ventricular ejection fraction. 2. Acute kidney injury. 3. Hypertension. 4. Hyperlipidemia. 5. Diabetes mellitus. RECOMMENDATIONS: Continue IV diuretics. The patient continues to be net negative. Echocardiogram demonstrated preserved LVEF at the office and stress demonstrated normal myocardial perfusion. Blood pressure is not well controlled. Further increase carvedilol. Continue Xarelto for CVA prophylaxis. The patient is on both carvedilol and metoprolol. DC carvedilol, we will add lisinopril as creatinine is not far from his baseline. Thank you for this consult. We will continue to follow. Hodan Toney MD ABS/MODL /[id number]
[2019-07-25] MEDS: LATANOPROST(OPTH) 2.5 ML BTL OU SCH (20:47)
[2019-07-25] MEDS: FINASTERIDE 5 MG TAB PO SCH (20:48)
[2019-07-25] MEDS: SIMVASTATIN 20 MG TAB PO SCH (20:48)
[2019-07-25] MEDS: SITAGLIPTIN 100 MG TAB PO SCH (20:48)
[2019-07-26] VITALS (16 sets, daily range): BP systolic 114–166; BP diastolic 6–76
[2019-07-26] MEDS: ALBUTEROL SULF 0.083% NEB SOLN 3 ML NEB NEB SCH ×6 (03:30→23:30)
[2019-07-26] MEDS: IPRATROPIUM BROMIDE 0.02% 2.5 ML NEB NEB SCH ×6 (03:30→23:30)
--- NOTE | 2019-07-26 07:12 | Progress Note ---
DATE: SUBJECTIVE: 79-year-old male, who comes in with acute exacerbation of CHF, probably diastolic. The patient currently is stable after diuresing adequately. The patient is on Levaquin for possible pneumonia. Feeling much better. No fever. The patient uses BiPAP yesterday for about 4 hours during morning and use it some for nighttime, feeling a lot better. No chest pains. No shortness of breath at this time, weak and also tired. OBJECTIVE: VITAL SIGNS: Temperature is 98.9, pulse of 60, respirations of 21, blood pressure is 148/67, and pulse oximeter 97%. He is on 4 L of nasal cannula with a pulse ox of 97%. HEENT: Normocephalic and atraumatic. Pupils are reactive to light and accommodation. CVS: S1 and S2 normal. Regular rate and rhythm. LUNGS: Positive for crackles at the lung bases. ABDOMEN: Nontender and nondistended. EXTREMITIES: Trace edema present. LABORATORY VALUES: Hemoglobin is 11.7, hematocrit of 36, no left shift present. The patient's sodium is 135, BUN of 33 and creatinine 1.35. Mag is 2.1, bilirubin of 1.3, glucose has been running in the 160s to 200s. Coags are normal. Microbiology; urine and blood culture are all normal. No growth. ASSESSMENT AND PLAN: 1. Rqjyd-ei-mueaixm diastolic heart failure. The patient's ejection fraction is 50% to 55%. The patient had a normal stress test at Dr. Sykes's office. Plan would be to discharge the patient once the patient has a negative balance and also possibly consider a cardiac cath and/or cardiac cath evaluation. 2. Acute kidney injury. The patient's creatinine has returned to baseline. 3. Diabetes mellitus, uncontrolled. Diet-control and on also insulin therapy. 4. Hyperlipidemia. Continue on current medication. Further recommendation per clinical course. The patient is also on Xarelto. We will continue to monitor the patient along with consultants. Physical Therapy will be ordered. The patient can be transferred to [facility] and possible discharge in 1 to 2 days to follow up with Dr. Sykes for pacemaker followup and also for continuum for cardiac cath. Rashawn Rodriguez MD ASJ/MODL /[id number]
[2019-07-26] MEDS: NITROGLYCERIN 2% OINT 1 GM PKT TOP SCH ×5 (07:46→20:04)
[2019-07-26] MEDS: INSULIN LISPRO 100 UNIT/1 ML 3ML VIAL SQ SCH ×4 (08:35→21:00)
[2019-07-26] MEDS: LISINOPRIL 10 MG TAB PO SCH (08:55)
[2019-07-26] MEDS: DORZOLAMIDE HCL (OPTH) 10 ML BOTTLE OP SCH ×2 (08:55→18:43)
[2019-07-26] MEDS: AMIODARONE HCL 200 MG TAB PO SCH (08:55)
[2019-07-26] MEDS: RIVAROXABAN 20 MG TABLET PO SCH (08:55)
[2019-07-26] MEDS: GABAPENTIN 300 MG CAP PO SCH ×2 (08:55→18:31)
[2019-07-26] MEDS: METOPROLOL SUCCINATE 50 MG TAB XL PO SCH ×2 (08:55→18:45)
[2019-07-26] MEDS: VITAMIN E 400 UNIT CAP PO SCH ×2 (08:55→18:31)
[2019-07-26] MEDS: PANTOPRAZOLE SOD 40 MG TABEC PO SCH (08:55)
[2019-07-26] MEDS: TIMOLOL MALEATE 0.5% OPTH DRP 5 ML BTL OP SCH ×2 (08:55→18:45)
[2019-07-26] MEDS: OCUVITE PRESERVISION TABLET PO SCH (08:55)
[2019-07-26] MEDS: PRIMIDONE 50 MG TAB PO SCH ×2 (08:55→18:31)
[2019-07-26] MEDS: ALFUZOSIN HCL 10 MG PO SCH (09:00)
[2019-07-26] MEDS: FUROSEMIDE INJ 10 MG/ML 4 ML VIAL IV SCH ×2 (09:04→21:35)
[2019-07-26] MEDS: LEVOFLOXACIN 500MG/D5W 100ML 100 ML IV SCH (09:04)
[2019-07-26] MEDS: GLIMEPIRIDE 2 MG TAB PO SCH (09:04)
--- NOTE | 2019-07-26 11:49 | Progress Note ---
DATE: 07/26/2019 Cardiology Progress Note SUBJECTIVE: The patient denies chest pain. He reports his shortness of breath is better. OBJECTIVE: VITAL SIGNS: Temperature 98 degrees, pulse 72, respiratory rate 18, blood pressure 109/53, and oxygen saturation 95% on room air. GENERAL: Elderly man, awake, alert, in no acute distress. LUNGS: Decreased breath sounds at the bases. CARDIOVASCULAR: Normal rate, regular rhythm. No murmur. Normal S1, S2. ABDOMEN: Soft, nontender. EXTREMITIES: No edema. CARDIAC MEDICATIONS: Furosemide 40 mg IV q.12 hours, lisinopril 10 mg p.o. daily, metoprolol succinate 100 mg p.o. b.i.d., rivaroxaban 20 mg p.o. daily, amiodarone 200 mg p.o. daily, simvastatin 10 mg p.o. at bedtime. LABORATORY DATA: None today. TELEMETRY: V paced. IMPRESSION: 1. Ethmt-se-glpgnfz diastolic heart failure with preserved left ventricular ejection fraction. 2. Acute kidney injury versus chronic kidney disease. 3. Hypertension. 4. Hyperlipidemia. 5. Diabetes mellitus. 6. Status post permanent pacemaker. RECOMMENDATIONS: Continue IV diuretics, monitor creatinine closely, monitor BNP. Echocardiogram at the office demonstrated preserved LVEF with normal perfusion on his nuclear stress test. No further cardiac evaluation is indicated at this time. Continue current cardiac medications. Blood pressure appears improved. We will continue to monitor. Thank you for this consult. We will continue to follow. Hodan Toney MD ABS/MODL /[id number]
[2019-07-26 12:09] LABS: ANION GAP 13.7 mmol/L (8-16); CALCIUM 9.6 mg/dL (8.4-10.2); CREATININE, SERUM 1.36 mg/dL (0.72-1.25); POTASSIUM 3.7 mmol/L (3.5-5.1)
--- NOTE | 2019-07-26 15:19 | NUR ---
Nutrition Screen Note RD Recommendation for Physician: -Rec adding ADA 2200 to cardiac diet as medically appropriate Plan of Care: RD following, monitoring for tolerance and adequacy Nutrition reason for involvement: Diagnosis CHF Primary Diagnose(s): Ixmvz-db-tttjhkn diastolic heart failure with preserved left ventricular ejection fraction. PMH: diabetes mellitus, hypertension, hyperlipidemia, BPH Ht: 75in Wt: 251lb BMI: 31.4kg/m2 IBW: 196lb +/- 10% RD Assessment: (07/26) Chart reviewed. Labs and meds reviewed. 79yo M, who was admitted for CHF. Pt was on diuretics and fluids restriction. Visited pt in the room. Pt reported good appetite without any GI complains. Pt denied any chewing or swallowing difficulty. Weight has been stable. Pt refused diet education. History of DM with BG 160-180 on insulin. Will continue to monitor and follow. Current Diet: cardiac diet Malnutrition Evaluation (07/26/2019) The patient does not meet criteria for a specified degree of malnutrition at this time. Will re-evaluate at follow-up as appropriate. Diet Education Needs Assessment: Diet education indicated, pt was not interested. Not compliant with heart healthy diet at home. Pt mostly eat out since his . Nutrition Care Level: low Signed: Tiffany Gold, MS, RD, LD
--- NOTE | 2019-07-26 21:30 | NUR ---
Bi-pap placed for sleep apnea per patient request.
[2019-07-26] MEDS: SIMVASTATIN 20 MG TAB PO SCH (21:35)
[2019-07-26] MEDS: FINASTERIDE 5 MG TAB PO SCH (21:35)
[2019-07-26] MEDS: SITAGLIPTIN 100 MG TAB PO SCH (21:35)
[2019-07-26] MEDS: LATANOPROST(OPTH) 2.5 ML BTL OU SCH (21:35)
[2019-07-27] VITALS (8 sets, daily range): BP systolic 116–157; BP diastolic 47–75
--- NOTE | 2019-07-27 02:00 | NUR ---
Patient is resting in bed in no distress, respirations are equal and unlabored. Call mcdonald within reach.
[2019-07-27] MEDS: ALBUTEROL SULF 0.083% NEB SOLN 3 ML NEB NEB SCH ×6 (03:15→23:18)
[2019-07-27] MEDS: IPRATROPIUM BROMIDE 0.02% 2.5 ML NEB NEB SCH ×6 (03:15→23:18)
--- NOTE | 2019-07-27 04:30 | NUR ---
Patient placed back on [place], coffee given per request. Patient without any complaints voiced. Call mcdonald within reach.
[2019-07-27 05:13] LABS: BASOPHILS % 0.6 % (0.0-1.0); EOSINOPHILS # (AUTO) 0.1 (0.0-0.4); EOSINOPHILS % 1.5 % (0.0-6.0); HEMATOCRIT 35.4 % (38.2-49.6); HEMOGLOBIN 11.4 g/dL (14.0-18.0); LYMPHOCYTES # (AUTO) 0.8 (1.0-3.2); LYMPHOCYTES % 11.4 % (18.0-39.1); MEAN CORPUSCULAR HEMOGLOBIN 28.4 pg (28-32); MEAN CORPUSCULAR HGB CONC 32.2 g/dL (31-35); MEAN CORPUSCULAR VOLUME 88.3 fL (81-99); MONOCYTES # (AUTO) 0.7 (0.2-0.8); MONOCYTES % 9.9 % (4.4-11.3); NEUTROPHILS # (AUTO) 5.1 (2.1-6.9); NEUTROPHILS % 75.9 % (38.7-80.0); PLATELET COUNT 168 x10e3/uL (140-360); RED BLOOD COUNT 4.01 x10e6/uL (4.3-5.7); RED CELL DISTRIBUTION WIDTH 13.3 % (11.7-14.4)
[2019-07-27] MEDS: NITROGLYCERIN 2% OINT 1 GM PKT TOP SCH ×4 (05:25→17:50)
[2019-07-27 05:45] LABS: ANION GAP 14.6 mmol/L (8-16); CALCIUM 9.7 mg/dL (8.4-10.2); CREATININE, SERUM 1.57 mg/dL (0.72-1.25); POTASSIUM 3.6 mmol/L (3.5-5.1)
[2019-07-27] MEDS ORDERED: GUAIFENESIN 600 MG TAB PO PRN (06:45)
[2019-07-27] MEDS: ALFUZOSIN HCL 10 MG PO SCH (07:52)
[2019-07-27] MEDS: GLIMEPIRIDE 2 MG TAB PO SCH (07:58)
[2019-07-27] MEDS: LEVOFLOXACIN 500MG/D5W 100ML 100 ML IV SCH (08:01)
[2019-07-27] MEDS: FUROSEMIDE INJ 10 MG/ML 4 ML VIAL IV SCH ×2 (08:01→20:53)
[2019-07-27] MEDS: PANTOPRAZOLE SOD 40 MG TABEC PO SCH (08:02)
[2019-07-27] MEDS: METOPROLOL SUCCINATE 50 MG TAB XL PO SCH ×2 (08:02→16:51)
[2019-07-27] MEDS: PRIMIDONE 50 MG TAB PO SCH ×2 (08:02→16:51)
[2019-07-27] MEDS: TIMOLOL MALEATE 0.5% OPTH DRP 5 ML BTL OP SCH ×2 (08:02→16:51)
[2019-07-27] MEDS: LISINOPRIL 10 MG TAB PO SCH (08:02)
[2019-07-27] MEDS: DORZOLAMIDE HCL (OPTH) 10 ML BOTTLE OP SCH ×2 (08:02→16:51)
[2019-07-27] MEDS: AMIODARONE HCL 200 MG TAB PO SCH (08:02)
[2019-07-27] MEDS: OCUVITE PRESERVISION TABLET PO SCH (08:02)
[2019-07-27] MEDS: VITAMIN E 400 UNIT CAP PO SCH ×2 (08:02→16:51)
[2019-07-27] MEDS: RIVAROXABAN 20 MG TABLET PO SCH (08:02)
[2019-07-27] MEDS: GABAPENTIN 300 MG CAP PO SCH ×2 (08:02→16:51)
[2019-07-27] MEDS: INSULIN LISPRO 100 UNIT/1 ML 3ML VIAL SQ SCH ×4 (08:03→20:54)
--- NOTE | 2019-07-27 10:55 | Progress Note ---
DATE: SUBJECTIVE: The patient is here for bilateral pleural effusion, new onset of congestive heart failure, diastolic; history of hypertension, and history of hyperlipidemia. Currently, the patient is still with shortness of breath, on oxygen supplementation. The patient used the BiPAP yesterday. No chest pain. Positive shortness of breath on exertion. Did do some physical therapy yesterday with Therapy, otherwise asymptomatic, walking around. OBJECTIVE: VITAL SIGNS: Temperature is 97.0, pulse of 62, respirations of 22, blood pressure is 147/66, and pulse oximetry of 98%. The patient is on BiPAP. HEENT: Normocephalic and atraumatic. Obese. CVS: S1 and S2 normal. Regular rate and rhythm. ABDOMEN: Nontender nondistended. EXTREMITIES: No clubbing and no cyanosis. Positive for trace edema. LABORATORY VALUES: Today's hemoglobin is 11.4 and hematocrit of 35.4. Chemistry shows sodium 134, potassium of 3.6, BUN of 38, and creatinine of 1.7. Coags are all normal. INR was 1.95. IMAGING STUDIES: The chest x-ray was done back on 07/25 shows possible trace bilateral pleural effusion and interval worsening of pulmonary edema. MICROBIOLOGY STUDIES: Blood culture, no growth. Urine culture, no growth. ASSESSMENT AND PLAN: 1. Acute on chronic diastolic heart failure, ejection fraction of 50%. 2. Acute kidney injury, improving. 3. Uncontrolled diabetes. Continue with insulin therapy. 4. Hyperlipidemia. Continue on current medication. 5. Acute respiratory failure. The patient continues to be on O2. We will get evaluation for home oxygen and the patient will be suggested with inpatient rehab and at this point in time, the patient refused to sit, physical therapy has been ordered. The patient needs to follow up with Dr. Gutierrez, on his pacemaker life. Further recommendation per clinical course and also depends on home O2 evaluation. [facility] facility and/or inpatient rehab is recommended. The patient is refusing at this time. MD SIM Michaels/MODL /[id number]
--- NOTE | 2019-07-27 14:44 | NUR ---
SPOKE WITH PATIENT ABOUT SNF, HE STATES HE WILL NOT GO TO A SNF, HE STATES HIS SON IS IN AGREEMENT, HE STATES IF HE NEEDS TO GO TO AN OUTPATIENT APPOINTMENT OR HOME HEALTH.
--- NOTE | 2019-07-27 14:49 | Diagnostic Imaging Report ---
EXAMINATION: CHEST SINGLE (PORTABLE) INDICATION: Shortness of breath COMPARISON: Chest radiograph of 07/25/2019 FINDINGS: LINES/TUBES:Unchanged left chest pacer. EKG leads overlie the chest. LUNGS:The lungs are moderately inflated. Unchanged pulmonary edema. PLEURA:No pleural effusion or pneumothorax. MEDIASTINUM:Cardiomediastinal silhouette is stably enlarged. BONES/SOFT TISSUES:No acute osseous injury. ABDOMEN:No free air under the diaphragm. IMPRESSION: No significant interval change in cardiomegaly and pulmonary edema. Signed by: Teressa Mehta MD on 07/27/2019 2:46 PM
--- NOTE | 2019-07-27 17:37 | Progress Note ---
DATE: 07/27/2019 Cardiology Progress Note SUBJECTIVE: The patient denies chest pain or shortness of breath. OBJECTIVE: VITAL SIGNS: Temperature 98.4 degrees, pulse 60, respiratory rate 21, blood pressure 116/47, oxygen saturation 97% on 2.5 L nasal cannula. GENERAL: Awake, alert, elderly man, no acute distress. LUNGS: Decreased breath sounds at the bases. CARDIOVASCULAR: Normal rate, regular rhythm. No murmur. Normal S1, S2. ABDOMEN: Soft, nontender. EXTREMITIES: No edema. CARDIAC MEDICATIONS: Lisinopril 10 mg p.o. daily, metoprolol succinate 100 mg p.o. b.i.d., rivaroxaban 20 mg p.o. daily, amiodarone 200 mg p.o. daily, furosemide 40 mg IV q.12 hours, simvastatin 10 mg p.o. at bedtime. LABORATORY DATA: WBC 6.68, hemoglobin 11.4, hematocrit 35.4, platelets 168. Sodium 135, potassium 3.6, chloride 96, CO2 of 28, BUN 38, creatinine 1.57. Chest x-ray, no significant interval change in cardiomegaly and pulmonary edema. TELEMETRY: Ventricular paced rhythm. IMPRESSION: 1. Nxbhx-qj-tfrhjwk diastolic heart failure with preserved left ventricular ejection fraction. 2. Acute kidney injury versus chronic kidney disease. 3. Hypertension. 4. Hyperlipidemia. 5. Diabetes mellitus. 6. Status post permanent pacemaker. RECOMMENDATIONS: Continue IV diuretics. The patient is undergoing home O2 evaluation. Monitor creatinine closely. Follow BNP. The patient had recent nuclear stress test with normal myocardial perfusion. No further cardiac evaluation is indicated at this time. Continue current cardiac medications. Blood pressure is acceptable for his age. Continue current cardiac medications. Thank you for this consult. We will continue to follow. Hodan Toney MD ABS/MODL /[id number]
[2019-07-27] MEDS: FINASTERIDE 5 MG TAB PO SCH (20:53)
[2019-07-27] MEDS: LATANOPROST(OPTH) 2.5 ML BTL OU SCH (20:53)
[2019-07-27] MEDS: SIMVASTATIN 20 MG TAB PO SCH (20:53)
[2019-07-27] MEDS: SITAGLIPTIN 100 MG TAB PO SCH (20:53)
[2019-07-28] VITALS (8 sets, daily range): BP systolic 127–156; BP diastolic 51–74
[2019-07-28] MEDS: IPRATROPIUM BROMIDE 0.02% 2.5 ML NEB NEB SCH ×7 (03:20→22:50)
[2019-07-28] MEDS: ALBUTEROL SULF 0.083% NEB SOLN 3 ML NEB NEB SCH ×6 (03:20→22:50)
[2019-07-28 05:54] LABS: ANION GAP 14.2 mmol/L (8-16); CALCIUM 9.6 mg/dL (8.4-10.2); CREATININE, SERUM 1.48 mg/dL (0.72-1.25); POTASSIUM 4.2 mmol/L (3.5-5.1)
[2019-07-28] MEDS: NITROGLYCERIN 2% OINT 1 GM PKT TOP SCH ×4 (06:00→16:06)
[2019-07-28 07:32] LABS: BASOPHILS # (AUTO) 0.1 (0.0-0.1); BASOPHILS % 0.7 % (0.0-1.0); EOSINOPHILS # (AUTO) 0.1 (0.0-0.4); EOSINOPHILS % 1.6 % (0.0-6.0); HEMATOCRIT 38.7 % (38.2-49.6); HEMOGLOBIN 12.3 g/dL (14.0-18.0); LYMPHOCYTES # (AUTO) 1.1 (1.0-3.2); MEAN CORPUSCULAR HEMOGLOBIN 28.5 pg (28-32); MEAN CORPUSCULAR HGB CONC 31.8 g/dL (31-35); MEAN CORPUSCULAR VOLUME 89.6 fL (81-99); MONOCYTES # (AUTO) 0.8 (0.2-0.8); MONOCYTES % 10.3 % (4.4-11.3); NEUTROPHILS # (AUTO) 5.4 (2.1-6.9); NEUTROPHILS % 71.9 % (38.7-80.0); PLATELET COUNT 178 x10e3/uL (140-360); RED BLOOD COUNT 4.32 x10e6/uL (4.3-5.7); RED CELL DISTRIBUTION WIDTH 13.2 % (11.7-14.4)
[2019-07-28] MEDS: ALFUZOSIN HCL 10 MG PO SCH (07:41)
[2019-07-28] MEDS: TIMOLOL MALEATE 0.5% OPTH DRP 5 ML BTL OP SCH ×2 (08:07→20:26)
[2019-07-28] MEDS: LEVOFLOXACIN 500MG/D5W 100ML 100 ML IV SCH (08:07)
[2019-07-28] MEDS: FUROSEMIDE INJ 10 MG/ML 4 ML VIAL IV SCH ×2 (08:07→20:25)
[2019-07-28] MEDS: DORZOLAMIDE HCL (OPTH) 10 ML BOTTLE OP SCH ×2 (08:07→20:26)
[2019-07-28] MEDS: GLIMEPIRIDE 2 MG TAB PO SCH (08:07)
[2019-07-28] MEDS: METOPROLOL SUCCINATE 50 MG TAB XL PO SCH ×2 (08:08→16:07)
[2019-07-28] MEDS: VITAMIN E 400 UNIT CAP PO SCH ×2 (08:08→16:06)
[2019-07-28] MEDS: RIVAROXABAN 20 MG TABLET PO SCH (08:08)
[2019-07-28] MEDS: PANTOPRAZOLE SOD 40 MG TABEC PO SCH (08:08)
[2019-07-28] MEDS: GABAPENTIN 300 MG CAP PO SCH ×2 (08:08→16:06)
[2019-07-28] MEDS: OCUVITE PRESERVISION TABLET PO SCH (08:08)
[2019-07-28] MEDS: LISINOPRIL 10 MG TAB PO SCH (08:08)
[2019-07-28] MEDS: PRIMIDONE 50 MG TAB PO SCH ×2 (08:08→16:06)
[2019-07-28] MEDS: AMIODARONE HCL 200 MG TAB PO SCH (08:08)
[2019-07-28] MEDS: INSULIN LISPRO 100 UNIT/1 ML 3ML VIAL SQ SCH ×4 (08:09→20:54)
--- NOTE | 2019-07-28 09:11 | Progress Note ---
DATE: SUBJECTIVE: 79-year-old male comes in with acute congestive heart failure, diastolic. The patient is currently asymptomatic, feeling better. Physical therapy walked the patient. The patient is recommended to have SNF. No chest pain. No shortness of breath on exertion. Positive shortness of breath present. The patient is in good spirits. OBJECTIVE: VITAL SIGNS: Temperature is 98.1, pulse of 60, respirations 24, blood pressure is 156/68, and pulse oxmietry of 94%, O2 at 92.5 L. HEENT: Normocephalic and atraumatic. Pupils reactive to light and accommodation. CVS: S1 and S2 normal. Regular rate and rhythm. LUNGS: Decreased air entry. ABDOMEN: Nontender and nondistended. EXTREMITIES: No clubbing, no cyanosis, no edema. LABORATORY VALUES: Pending from today and chemistries from today show a sodium of 138, BUN of 33, creatinine of 1.48 getting better, glucose 182 and running in the 200s. The patient's lactic acid was negative. ASSESSMENT AND PLAN: 79-year-old gentleman with: 1. Xqgvi-ag-zisecwk diastolic heart failure. EF of 50%. 2. Acute kidney injury, which is improving. 3. Acute respiratory failure with O2 necessity. 4. Debility. 5. Hyperlipidemia. 6. Uncontrolled diabetes mellitus. The patient will need to schedule all inpatient rehab facility. The patient is on O2. O2 will recommend on discharge. The patient also needs follow up on his pacemaker and further cardiological workup depending on Cardiology. No further changes. We will continue monitor the patient and also his vitals and labs on a daily basis. Discharge depending on progression of disease. MD RICHAR MichaelsJ/MODL /[id number]
--- NOTE | 2019-07-28 13:45 | NUR ---
discussed rehab order with patient. patient signed choice for [facility]. mot placed on chart. notified [facility] of new consult. clincials faxed to [phone]. confirmation received. choice letter placed on chart and copy given to patient. transfer when accepted
--- NOTE | 2019-07-28 17:12 | Progress Note ---
DATE: 07/28/2019 Cardiology Progress Note SUBJECTIVE: The patient denies chest pain or shortness of breath. OBJECTIVE: VITAL SIGNS: Temperature 98.8 degrees, pulse 60, respiratory rate 20, blood pressure 165/73, oxygen 93% on 2 L nasal cannula. GENERAL: Awake, alert, elderly man, in no acute distress. LUNGS: Decreased breath sounds at the bases. CARDIOVASCULAR: Normal rate. Regular rhythm. No murmur. Normal S1, S2. ABDOMEN: Soft, nontender. EXTREMITIES: No edema. CARDIAC MEDICATIONS: 1. Metoprolol succinate 100 mg p.o. b.i.d. 2. Lisinopril 10 mg p.o. daily. 3. Rivaroxaban 20 mg p.o. daily. 4. Amiodarone 200 mg p.o. daily. 5. Furosemide 40 mg IV q.12 hours. 6. Simvastatin 10 mg p.o. at bedtime. LABORATORY DATA: WBC 7.46, hemoglobin 12.3, hematocrit 38.7, and platelets 178. Sodium 138, potassium 4.2, chloride 98, CO2 of 30, BUN 33, and creatinine 1.48. TELEMETRY: V-paced. IMPRESSION: 1. Bjlbu-ds-swbviti diastolic heart with preserved left ventricular ejection fraction. 2. Acute kidney injury versus chronic kidney disease. 3. Hypertension. 4. Hyperlipidemia. 5. Diabetes mellitus status. 6. Status post permanent pacemaker. RECOMMENDATIONS: Continue IV diuretics. Creatinine has been relatively stable. The patient had nuclear stress test with normal myocardial perfusion earlier this year. No further cardiac evaluation is indicated at this time. Continue current cardiac medications. His blood pressure is borderline for age. Increase lisinopril. Thank you for this consult. We will continue to follow. Hodan Toney MD ABS/MODL /[id number]
[2019-07-28] MEDS: SITAGLIPTIN 100 MG TAB PO SCH (20:26)
[2019-07-28] MEDS: FINASTERIDE 5 MG TAB PO SCH (20:26)
[2019-07-28] MEDS: SIMVASTATIN 20 MG TAB PO SCH (20:26)
[2019-07-28] MEDS ORDERED: LATANOPROST(OPTH) 2.5 ML BTL OU SCH (21:00)
[2019-07-29] VITALS: BP 141/66
--- NOTE | 2019-07-29 02:07 | NUR ---
Patient refused to ise BIPAP at this time. He said he wasn't using it for the past 3 nights because it's uncomfortable and he was fine.
[2019-07-29] MEDS: IPRATROPIUM BROMIDE 0.02% 2.5 ML NEB NEB SCH ×4 (03:07→14:45)
[2019-07-29] MEDS: ALBUTEROL SULF 0.083% NEB SOLN 3 ML NEB NEB SCH ×4 (03:07→14:45)
[2019-07-29 04:00] VITALS: BP 144/62
[2019-07-29] MEDS: NITROGLYCERIN 2% OINT 1 GM PKT TOP SCH ×4 (06:00→17:48)
[2019-07-29 06:05] LABS: BASOPHILS # (AUTO) 0.1 (0.0-0.1); BASOPHILS % 0.7 % (0.0-1.0); EOSINOPHILS # (AUTO) 0.1 (0.0-0.4); EOSINOPHILS % 1.8 % (0.0-6.0); HEMOGLOBIN 12.5 g/dL (14.0-18.0); LYMPHOCYTES % 13.6 % (18.0-39.1); MEAN CORPUSCULAR HEMOGLOBIN 28.7 pg (28-32); MEAN CORPUSCULAR HGB CONC 32.1 g/dL (31-35); MEAN CORPUSCULAR VOLUME 89.4 fL (81-99); MONOCYTES # (AUTO) 0.7 (0.2-0.8); NEUTROPHILS # (AUTO) 5.2 (2.1-6.9); NEUTROPHILS % 73.2 % (38.7-80.0); PLATELET COUNT 178 x10e3/uL (140-360); RED BLOOD COUNT 4.36 x10e6/uL (4.3-5.7); RED CELL DISTRIBUTION WIDTH 13.2 % (11.7-14.4)
[2019-07-29 06:38] LABS: ANION GAP 11.7 mmol/L (8-16); CALCIUM 9.6 mg/dL (8.4-10.2); CREATININE, SERUM 1.43 mg/dL (0.72-1.25); POTASSIUM 3.7 mmol/L (3.5-5.1)
--- NOTE | 2019-07-29 07:00 | NUR ---
BEDSIDE SHIFT REPORT RECEIVED FROM [employer]ELOPER RN. PT DENIES NEEDS AT THIS TIME.
--- NOTE | 2019-07-29 07:42 | Progress Note ---
DATE: SUBJECTIVE: The patient is an 79-year-old male, who comes in with acute congestive heart failure, diastolic. Currently feeling better, but still very weak in walking. Physical therapy has been instituted. The patient has been advised to go to inpatient rehab facility with [facility] has been advised. The patient is awaiting a bed in the facility. Currently, feeling better. Shortness of breath on exertion still exist. No chest pain. No nausea, no vomiting, or diarrhea. The patient is in good spirits. OBJECTIVE: VITAL SIGNS: Temperature is 97.1, pulse of 62, respirations of 22, blood pressure is 144/62, and pulse ox of 90% on 2 L of oxygen. HEENT: Normocephalic, atraumatic. The patient has nasal cannula. CVS: S1, S2. Regular rate and rhythm. LUNGS: Positive for some few crackles at the lower bases. ABDOMEN: Nontender and nondistended. EXTREMITIES: No clubbing. No cyanosis. Trace edema. LABORATORY VALUES: Hemoglobin is 12.5, hematocrit of 39.0. Chemistries are pending today, but yesterday's BUN was 33, creatinine of 1.48. Glucoses have been running 223. Coags are normal. INR of 1.95. ASSESSMENT: 1. An 79-year-old gentleman with acute diastolic dysfunction. 2. Acute kidney injury, stabilized with his baseline creatinine right now. 3. Acute respiratory failure. Continue with oxygen and continue monitoring the patient in the rehab, debility needs rehabilitation. 4. Hyperlipidemia. Continue on medication. 5. Uncontrolled diabetes mellitus. Continue with insulin sliding scale. Nutritional consult needs to be done. The patient will need O2 on discharge. Further recommendation per clinical course. The patient can be discharged at any point of time when bed is available at the rehab facility. Rashawn Rodriguez MD ASJ/MODL /[id number]
[2019-07-29 08:17] VITALS: BP 168/75
[2019-07-29] MEDS: GLIMEPIRIDE 2 MG TAB PO SCH (08:47)
[2019-07-29] MEDS: FUROSEMIDE INJ 10 MG/ML 4 ML VIAL IV SCH (08:47)
[2019-07-29] MEDS: LEVOFLOXACIN 500MG/D5W 100ML 100 ML IV SCH (08:47)
[2019-07-29] MEDS: AMIODARONE HCL 200 MG TAB PO SCH (08:48)
[2019-07-29] MEDS: PRIMIDONE 50 MG TAB PO SCH ×2 (08:48→17:47)
[2019-07-29] MEDS: DORZOLAMIDE HCL (OPTH) 10 ML BOTTLE OP SCH (08:48)
[2019-07-29] MEDS: GABAPENTIN 300 MG CAP PO SCH ×2 (08:48→17:47)
[2019-07-29] MEDS: ALFUZOSIN HCL 10 MG PO SCH (08:48)
[2019-07-29] MEDS: TIMOLOL MALEATE 0.5% OPTH DRP 5 ML BTL OP SCH (08:48)
[2019-07-29] MEDS: OCUVITE PRESERVISION TABLET PO SCH (08:48)
[2019-07-29] MEDS: PANTOPRAZOLE SOD 40 MG TABEC PO SCH (08:49)
[2019-07-29] MEDS: VITAMIN E 400 UNIT CAP PO SCH ×2 (08:49→17:48)
[2019-07-29] MEDS: RIVAROXABAN 20 MG TABLET PO SCH (08:49)
[2019-07-29] MEDS: METOPROLOL SUCCINATE 50 MG TAB XL PO SCH ×2 (08:49→17:48)
[2019-07-29] MEDS: INSULIN LISPRO 100 UNIT/1 ML 3ML VIAL SQ SCH ×3 (08:50→16:30)
[2019-07-29] MEDS ORDERED: LISINOPRIL 10 MG TAB PO SCH (09:00)
[2019-07-29] MEDS ORDERED: LISINOPRIL 20 MG TAB PO SCH (09:00)
[2019-07-29 09:47] VITALS: BP 168/75
--- NOTE | 2019-07-29 11:54 | NUR ---
[facility] high [facility]. informed patient, he verbalizes understanding, but is requesting oxygen at home. dr pan and rn made aware and home o2 eval ordered. cm to follow
--- NOTE | 2019-07-29 12:18 | NUR ---
WHEN PT AMBULATES, HIS O2 STATS DROP TO 88. HOME O2 EVAL ORDERED.
[2019-07-29 12:43] VITALS: BP 149/66
--- NOTE | 2019-07-29 16:16 | NUR ---
02 EVAL ON ROOM AIR 86% CHOICE LETTER SIGNED FOR [facility]LLEN WEINER FROM [facility] HERE TO DELIVER PORTABLE TANKS CONCENTRATOR TO BE DELIVERED TO HOME WHEN PT DISCHARGED
[2019-07-29 17:20] VITALS: BP 117/66
--- NOTE | 2019-07-29 17:40 | Progress Note ---
DATE: 07/29/2019 Cardiology Progress Note SUBJECTIVE: Patient denies chest pain or shortness of breath. OBJECTIVE: VITAL SIGNS: Temperature 97.7 degrees, pulse 62, respiratory rate 20, blood pressure 149/66, oxygen saturation 97% on 2.5 L of nasal cannula. GENERAL: Elderly man, in no acute distress, awake, alert. LUNGS: Decreased breath sounds at the bases. CARDIOVASCULAR: Normal rate, regular rhythm. No murmur. Normal S1, S2. ABDOMEN: Soft, nontender. EXTREMITIES: No edema. CARDIAC MEDICATIONS: 1. Metoprolol succinate 100 mg p.o. b.i.d. 2. Xarelto 20 mg p.o. daily. 3. Lisinopril 20 mg p.o. daily. 4. Amiodarone 200 mg p.o. daily. 5. Furosemide 40 mg IV q.12 hours. 6. Simvastatin 10 mg p.o. at bedtime. LABORATORY DATA: WBC 7.07, hemoglobin 12.5, hematocrit 39, platelets 178. Sodium 138, potassium 3.7, chloride 98, CO2 of 32, BUN 32, creatinine 1.43. TELEMETRY: V-Paced. IMPRESSION: 1. Axgnz-oo-czuciqw diastolic heart failure with preserved left ventricular ejection fraction. 2. Acute kidney injury versus chronic kidney disease. 3. Hypertension. 4. Hyperlipidemia. 5. Diabetes mellitus. 6. Status post permanent pacemaker. RECOMMENDATIONS: Continue IV diuretics, creatinine has been stable. Patient had nuclear stress test as an outpatient with normal myocardial perfusion. No further cardiac evaluation is indicated at this time. Continue current cardiac medications. Blood pressure remains elevated. Lisinopril was increased to assess response. Thank you for this consult. We will continue to follow. Hodan Toney MD ABS/MODL /[id number]
[2019-07-29] MEDS ORDERED: LASIX40 MG PO (18:17)
[2019-07-30] MEDS ORDERED: PANTOPRAZOLE SOD 40 MG TABEC PO SCH (07:30)
--- NOTE | 2019-08-01 04:01 | Consultation ---
DATE OF CONSULTATION: 07/29/2019 REASON FOR CONSULTATION: 1. Pulmonary debility. 2. Hypertension. 3. Diabetes. HISTORY: An 79-year-old male with a history of pacemaker who is admitted to the hospital early in the morning secondary to feeling short of breath. He was using BiPAP at night, but for some reason at night continued to not be able to use it. He had some bleeding, came to the emergency room, found to have pulmonary edema, pleural effusion, was seen by Dr. Toney in cardiac management. He is since doing better and is being evaluated for rehab needs. PAST MEDICAL HISTORY: Hypertension, hyperlipidemia, diabetes. SURGERIES: Include pacemaker placement as well as left knee replacement. HABITS: Former smoker, quit many years ago. Nondrinker. SOCIAL HISTORY: Lives by himself in a one-story home. He used to work for a [employer] company. Fairly functional. FAMILY HISTORY: Noncontributory. REVIEW OF SYSTEMS: An 11-point review of systems as the patient, which was essentially negative except for the above findings. He does state he is essentially short of breath at times, especially when he has exacerbations. He is not on O2. Other than that, he is doing pretty well. ALLERGIES: SOMA AND ERYTHROMYCIN. LABORATORY STUDIES: White cell count of 7.07, hemoglobin 12.5, hematocrit 39.0, platelets of 178. Sodium is 130 and potassium 3.7, BUN of 33, creatinine 1.43. Chest x-ray showed no significant change, some cardiomegaly and pulmonary edema. PHYSICAL EXAMINATION: GENERAL: The patient is awake, alert, no apparent distress. Awake and oriented x3. He is lying in bed. Feels well. I just woke him up, but he is in really good spirits. EYES: Gaze conjugate. He is oriented x3. ORAL: Tongue is midline. NECK: Supple. HEART: Regular. LUNGS: Diminished breath sounds. O2 via nasal cannula. ABDOMEN: Nontender, nondistended. EXTREMITIES: Full range of motion as far as the legs. Manual muscle testing 5/5 strength to arms and legs bilaterally. Review of the therapy notes shows that the patient walks about 250 feet at supervision. No loss of balance, slightly unsteady, working on some balance training. His static sitting is independent, dynamic sitting is independent. IMPRESSION: 1. Debilitated state secondary to congestive heart failure exacerbation. 2. Hypertension. 3. Diabetes. 4. O2 dependency at this time with a prior pulmonary edema. Thank you once again for allowing me to participate in the care of this pleasant but unfortunate patient. PLAN: The patient himself tells me he would rather go home rather than come to the hospital and stay for a week or so. He actually is fairly functional and is walking 250 feet at supervision level. Only a little bit of imbalance but other than that he seems to be doing well. We will follow along with you. Cardiac precautions. Jeremy Mcdaniels DO RPL/MODL /[id number]
== END 2019-07-29 18:34 | disposition home or self-care (01) | DRG 291 ==
LOC: ER 07:31 → ERHOLD 10:59 → ICU 13:23 → IMCU 07-26 13:55 → MED/SURG 07-28 21:30
PROVIDERS: ADMIT Family Medicine; ATTEND Family Medicine
DX: I11.0 Hypertensive heart disease with heart failure (principal); J96.02 Acute respiratory failure with hypercapnia; N17.9 Acute kidney failure, unspecified; J90 Pleural effusion, not elsewhere classified; I50.33 Acute on chronic diastolic (congestive) heart failure; N40.0 Benign prostatic hyperplasia without lower urinary tract symptoms; E11.65 Type 2 diabetes mellitus with hyperglycemia; E11.40 Type 2 diabetes mellitus with diabetic neuropathy, unspecified; Z79.4 Long term (current) use of insulin; G25.81 Restless legs syndrome; I48.91 Unspecified atrial fibrillation; Z79.01 Long term (current) use of anticoagulants; E87.5 Hyperkalemia; Z95.0 Presence of cardiac pacemaker; F17.210 Nicotine dependence, cigarettes, uncomplicated; Z99.81 Dependence on supplemental oxygen; J44.9 Chronic obstructive pulmonary disease, unspecified; G47.33 Obstructive sleep apnea (adult) (pediatric); Z86.718 Personal history of other venous thrombosis and embolism
CPT/HCPCS: 36415; 36600; 71045; 71260; 80048; 80053; 81001; 82550; 82553; 82805; 82948; 83605; 83735; 83880; 84484; 85025; 85379; 85610; 85730; 87040; 87086; 93005; 93306; 94640; 94660; 96372; 97139; 99284; J1817; J1940; J1956; J3370; Q9967

== ENCOUNTER 2020-05-11 06:52 | Outpatient (RCR) | payer MEDICARE, OTHER ==
[~2020-05-11 06:52] MED LIST changes: +GABAPENTIN300 MG PO; +JARDIANCE PO; +PREVACID30 MG PEG; +TOPROL XL50 MG PO; +TRULICITY SQ
== END 2020-05-15 ==
LOC: PT 06:52
PROVIDERS: ATTEND Specialist
DX: M47.816 Spondylosis without myelopathy or radiculopathy, lumbar region (principal); M54.5 Low back pain; M53.86 Other specified dorsopathies, lumbar region; M62.81 Muscle weakness (generalized); Z91.81 History of falling

== ENCOUNTER 2020-05-17 06:57 | Outpatient (RCR) | payer MEDICARE, OTHER | END 2020-06-15 | LOC: PT 06:57 | PROVIDERS: ATTEND Specialist | DX: M47.816 Spondylosis without myelopathy or radiculopathy, lumbar region (principal); M62.81 Muscle weakness (generalized); M54.5 Low back pain; M53.86 Other specified dorsopathies, lumbar region; Z91.81 History of falling | CPT/HCPCS: 97139 ==

== ENCOUNTER → 2020-10-01 | Outpatient (CLI) | payer MEDICARE, OTHER ==
[~2020-10-01] MED LIST changes: +IOPAMIDOL 370 MG/ML 200 ML INFUS..BTL INJ ONE; +SODIUM CHLORIDE 0.9% 100 ML ONE
[2020-10-01 12:23] LABS: CALCIUM 9.6 mg/dL (8.4-10.2); CREATININE, SERUM 1.46 mg/dL (0.72-1.25)
--- NOTE | 2020-10-01 13:20 | Diagnostic Imaging Report ---
Abdomen and Pelvis CTA WITHOUT AND WITH IV CONTRAST. INDICATION: Abdominal aortic aneurysm. COMPARISON: 04/06/2019 TECHNIQUE: The abdomen and pelvis were scanned utilizing a multidetector helical scanner from the lung base to the pubic symphysis before and after administration of IV contrast. Coronal and sagittal reformations were obtained. 3D post-processing of the images was performed, and the post-processed images were used in interpretation. CTA protocol was performed. IV CONTRAST: 100mL of Isovue 370 ORAL CONTRAST: None RADIATION DOSE: Total DLP: 748 mGy*cm FINDINGS: VESSELS: Abdominal aorta is tortuous and measures up to 3.4 cm in AP diameter at the infrarenal portion where there is fusiform aneurysmal dilatation. Negative for abdominal aortic dissection or penetrating catheters chronic ulceration. Celiac, superior mesenteric, bilateral renal and inferior mesenteric arteries are patent. Common iliac arteries are tortuous with mild to moderate multifocal atherosclerotic change without full limiting stenosis. Mild dilatation of the distal left common iliac artery is noted measuring up to 2 cm. Bilateral internal iliac arteries are patent. External iliac arteries are unremarkable. Common femoral arteries are unremarkable. Partially visualized proximal superficial femoral and profunda arteries are patent. NON-VASCULAR: LOWER THORAX: Emphysematous changes and basilar scarring are noted. HEPATOBILIARY: No focal hepatic lesions. Stable circular hypodense lesion in segment 8. No biliary ductal dilatation. The gallbladder appears unremarkable. SPLEEN: No splenomegaly. Stable hypodense lesion in the upper pole. PANCREAS: No focal masses or ductal dilatation. ADRENALS: No adrenal nodules. KIDNEYS/URETERS: No hydronephrosis, stones, or solid mass lesions. PELVIC ORGANS/BLADDER: Unremarkable. PERITONEUM / RETROPERITONEUM: No free air or fluid. Left fat-containing inguinal hernias noted. LYMPH NODES: No lymphadenopathy. GI TRACT: Stomach and portions of the colon are decompressed limiting evaluation. Negative for obstruction. Normal appendix is noted. Numerous diverticuli are noted of the sigmoid colon without surrounding inflammatory changes. BONES AND SOFT TISSUES: Stable severe multilevel degenerative changes of the lower thoracic and lumbar spine with multilevel advanced disc space narrowing, vacuum phenomenon, osteophytes and significant facet arthropathy at the lower lumbar spine. Left convex curvature of the lumbar spine is stable. Soft tissues are unremarkable. IMPRESSION: 1. No significant change in appearance or size of the infrarenal fusiform abdominal aorta measuring up to 3.4 cm. 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 2. Stable emphysematous changes of the lung bases. 3. Uncomplicated colonic diverticulosis. 4. 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 Signed by: Aguilar Antonio MD on 10/01/2020 1:17 PM
== END ==
LOC: CT 11:45
PROVIDERS: ATTEND Internal Medicine Interventional Cardiology
DX: I71.4 Abdominal aortic aneurysm, without rupture (principal)
CPT/HCPCS: 36415; 74174; 80048; J7050; Q9967

== ENCOUNTER 2022-05-15 09:13 | Inpatient (IN) | payer MEDICARE, OTHER ==
[2022-05-15] VITALS (14 sets, daily range): BP systolic 119–224; BP diastolic 47–81
[~2022-05-15] VITALS: Ht 190.5 cm; Wt 91.2 kg
[~2022-05-15 09:13] MED LIST changes: -IOPAMIDOL 370 MG/ML 200 ML INFUS..BTL INJ ONE; -SODIUM CHLORIDE 0.9% 100 ML ONE
[2022-05-15 09:50] LABS: BASOPHILS % 0.3 % (0.0-1.0); HEMATOCRIT 40.4 % (38.2-49.6); HEMOGLOBIN 12.7 g/dL (14.0-18.0); LYMPHOCYTES # (AUTO) 0.7 (1.0-3.2); LYMPHOCYTES % 6.6 % (18.0-39.1); MEAN CORPUSCULAR HEMOGLOBIN 30.5 pg (28-32); MEAN CORPUSCULAR HGB CONC 31.4 g/dL (31-35); MEAN CORPUSCULAR VOLUME 97.1 fL (81-99); MONOCYTES # (AUTO) 0.9 (0.2-0.8); MONOCYTES % 8.9 % (4.4-11.3); NEUTROPHILS # (AUTO) 8.5 (2.1-6.9); NEUTROPHILS % 83.3 % (38.7-80.0); PLATELET COUNT 213 x10e3/uL (140-360); RED BLOOD COUNT 4.16 x10e6/uL (4.3-5.7); RED CELL DISTRIBUTION WIDTH 13.5 % (11.7-14.4)
[2022-05-15 10:04] LABS: INR 1.72; PROTHROMBIN TIME 21.5 seconds (11.9-14.5)
[2022-05-15 10:05] LABS: PARTIAL THROMBOPLASTIN TIME 46.1 seconds (23.8-35.5)
[2022-05-15 10:10] LABS: ALBUMIN 2.6 g/dL (3.5-5.0); ALBUMIN/GLOBULIN RATIO 0.5 (0.8-2.0); ANION GAP 24.1 mmol/L (8-16); CALCIUM 9.8 mg/dL (8.4-10.2); CREATININE, SERUM 2.38 mg/dL (0.72-1.25); MAGNESIUM 2.6 MG/DL (1.3-2.1); POTASSIUM 5.1 mmol/L (3.5-5.1)
[2022-05-15 10:16] LABS: CREATINE KINASE MB 1.4 ng/mL (0-5.0)
[2022-05-15] MEDS ORDERED: ONDANSETRON HCL INJ 2MG/ML 2ML 2 MG/ML VIAL IV PRN (12:45)
[2022-05-15] MEDS ORDERED: DEXTROSE 50% SYRINGE 50 ML IV PRN ×2 (12:45→20:15)
[2022-05-15 13:44] LABS: COLOR,URINE YELLOW (YELLOW)
[2022-05-15 13:46] LABS: CLARITY,URINE CLEAR (CLEAR)
[2022-05-15 13:51] LABS: KETONES,URINE 2+ (NEGATIVE); LEUKOCYTE ESTERASE ,URINE NEGATIVE (NEGATIVE); NITRITE,URINE NEGATIVE (NEGATIVE); PROTEIN,URINE DIPSTICK >=300 (NEGATIVE); URINE UROBILINOGEN 0.2 mg/dL (0.2 - 1)
[2022-05-15 13:53] LABS: BACTERIA,URINE RARE /HPF; EPITHELIAL CELLS,URINE RARE /LPF; WBC,URINE (MAN) 0-5 /HPF (0-5)
[2022-05-15] MEDS: FAMOTIDINE 20 MG/2 ML VIAL IV SCH ×3 (14:35→21:08)
[2022-05-15] MEDS ORDERED: ENTRESTO 49 MG1 EACH PO (15:38)
[2022-05-15] MEDS ORDERED: LATANOPROST2.5 ML OP (15:38)
[2022-05-15] MEDS ORDERED: VITAMIN D PO (15:38)
[2022-05-15] MEDS ORDERED: [UNRECOGNIZED DRUG - OTHER] OP (15:38)
[2022-05-15] MEDS ORDERED: PROTONIX20 MG PO (15:38)
[2022-05-15] MEDS ORDERED: DORZOLAMIDE-TIM10 ML OP (15:38)
[2022-05-15] MEDS ORDERED: SPIRONOLACTONE25 MG PO (15:38)
[2022-05-15] MEDS ORDERED: L-THROXINE PO (15:38)
[2022-05-15] MEDS ORDERED: TRULICITY3 MG/0.5 M (15:38)
[2022-05-15] MEDS ORDERED: NIFEDIPINE10 MG PO (15:38)
[2022-05-15] MEDS ORDERED: MYSOLINE50 MG PO ×2 (15:38)
[2022-05-15] MEDS ORDERED: GLIPIZIDE5 MG PO (15:38)
[2022-05-15] MEDS ORDERED: FUROSEMIDE INJ 10 MG/ML 2 ML VIAL IV ONE (16:00)
[2022-05-15] MEDS: PRIMIDONE 50 MG TAB PO SCH (16:07)
[2022-05-15] MEDS: HYDRALAZINE HCL 20 MG/ML VIAL IV PRN (16:12)
[2022-05-15] MEDS: METOPROLOL SUCCINATE 50 MG TAB XL PO SCH (16:13)
[2022-05-15] MEDS: VITAMIN E 400 UNIT CAP PO SCH (16:13)
[2022-05-15] MEDS: ALBUTEROL SULF 0.083% NEB SOLN 3 ML NEB NEB PRN (16:15)
[2022-05-15] MEDS ORDERED: DEXTROSE 5%/0.45% SOD CHL 1,000 ML IV SCH (16:30)
[2022-05-15] MEDS ORDERED: POTASSIUM CHLORIDE 20MEQ/100ML 200 ML IV PRN (16:30)
[2022-05-15] MEDS ORDERED: INSULIN REGULAR, HUMAN 3ML VL 100 UNIT in SODIUM CHLORIDE 0.9% 99 ML IV SCH ×2 (16:30)
[2022-05-15] MEDS ORDERED: MAGNESIUM SULF 1GRAM/DEXTROSE 100 ML IV PRN (16:30)
[2022-05-15] MEDS ORDERED: SODIUM CHLORIDE 0.9% 1000ML 1,000 ML IV SCH (16:30)
[2022-05-15] MEDS ORDERED: INSULIN LISPRO 100 UNIT/1 ML 3ML VIAL SQ SCH (16:30)
[2022-05-15] MEDS ORDERED: NON-FORMULARY MEDICATION (Metoprolol Succinate 100 MG) PO SCH (17:00)
[2022-05-15] MEDS ORDERED: INSULIN REGULAR, HUMAN 3ML VL 100 UNIT in SODIUM CHLORIDE 0.9% 100 ML 99 ML IV SCH ×2 (17:00)
[2022-05-15] MEDS ORDERED: SODIUM BICARBONATE 8.4% INJ 50 ML SYR IV ONE (17:30)
[2022-05-15] MEDS ORDERED: FUROSEMIDE INJ 10 MG/ML 4 ML VIAL IV ONE (17:30)
[2022-05-15 17:36] LABS: ALBUMIN 2.4 g/dL (3.5-5.0); ALBUMIN/GLOBULIN RATIO 0.5 (0.8-2.0); ANION GAP 24.2 mmol/L (8-16); CALCIUM 9.1 mg/dL (8.4-10.2); CREATININE, SERUM 2.24 mg/dL (0.72-1.25); POTASSIUM 5.2 mmol/L (3.5-5.1)
[2022-05-15 17:42] LABS: ABG HCO3 13 mmol/L (22-26); ABG PCO2 33 mmHg (35-45); ABG PH 7.21 (7.35-7.45); ABG PO2 392 mmHg (80-105); ABG TCO2 14
[2022-05-15] MEDS: DEXTROSE 5%/0.225% SOD CHL 1,000 ML IV SCH (17:52)
[2022-05-15 17:58] LABS: CREATINE KINASE MB 1.5 ng/mL (0-5.0)
[2022-05-15] MEDS ORDERED: INSULIN REGULAR, HUMAN 3ML VL 100 UNIT in SODIUM CHLORIDE 0.45% 100 ML 100 ML IV SCH ×2 (20:15)
[2022-05-15 20:47] LABS: ANION GAP 19.7 mmol/L (8-16); CALCIUM 8.8 mg/dL (8.4-10.2); CREATININE, SERUM 2.3 mg/dL (0.72-1.25); POTASSIUM 4.7 mmol/L (3.5-5.1)
[2022-05-15] MEDS: PIPERACILLIN/TAZOBACTAM 4.5 GM in SODIUM CHLORIDE 0.9% 100 ML IV SCH ×2 (21:00→21:08)
[2022-05-15] MEDS: LATANOPROST(OPTH) 2.5 ML BTL OU SCH (21:00)
[2022-05-16] VITALS (23 sets, daily range): BP systolic 115–174; BP diastolic 36–94
[2022-05-16] MEDS ORDERED: ALBUTEROL/IPRATROPIUM 3 ML NEB NEB SCH (01:00)
[2022-05-16] MEDS: HYDRALAZINE HCL 20 MG/ML VIAL IV PRN (04:13)
[2022-05-16] MEDS: ALBUTEROL/IPRATROPIUM 3 ML NEB NEB SCH ×4 (04:20→19:35)
[2022-05-16] MEDS ORDERED: INSULIN REGULAR, HUMAN 3ML VL 100 UNIT in SODIUM CHLORIDE 0.9% 99 ML IV SCH ×4 (06:22→06:30)
[2022-05-16] MEDS: ACETAMINOPHEN 325 MG TAB PO PRN (06:39)
[2022-05-16 06:45] LABS: BASOPHILS % 0.1 % (0.0-1.0); HEMATOCRIT 36.4 % (38.2-49.6); LYMPHOCYTES # (AUTO) 0.5 (1.0-3.2); LYMPHOCYTES % 5.3 % (18.0-39.1); MEAN CORPUSCULAR HEMOGLOBIN 30.2 pg (28-32); MEAN CORPUSCULAR VOLUME 91.7 fL (81-99); MONOCYTES # (AUTO) 0.8 (0.2-0.8); MONOCYTES % 8.8 % (4.4-11.3); NEUTROPHILS # (AUTO) 7.9 (2.1-6.9); NEUTROPHILS % 85.3 % (38.7-80.0); PLATELET COUNT 189 x10e3/uL (140-360); RED BLOOD COUNT 3.97 x10e6/uL (4.3-5.7); RED CELL DISTRIBUTION WIDTH 13.5 % (11.7-14.4)
[2022-05-16] MEDS ORDERED: FUROSEMIDE INJ 10 MG/ML 2 ML VIAL IV ONE (06:45)
[2022-05-16 07:18] LABS: ALBUMIN 2.1 g/dL (3.5-5.0); ALBUMIN/GLOBULIN RATIO 0.5 (0.8-2.0); ANION GAP 16.2 mmol/L (8-16); CALCIUM 8.9 mg/dL (8.4-10.2); CHOL/HDL RATIO 5.1 (3.9-4.7); CREATININE, SERUM 2.2 mg/dL (0.72-1.25); POTASSIUM 4.2 mmol/L (3.5-5.1)
[2022-05-16] MEDS: DEXTROSE 5%/0.225% SOD CHL 1,000 ML IV SCH ×2 (07:46→23:18)
[2022-05-16 08:14] LABS: CREATINE KINASE MB 0.6 ng/mL (0-5.0)
[2022-05-16] MEDS: FAMOTIDINE 20 MG/2 ML VIAL IV SCH ×2 (08:17→20:21)
[2022-05-16] MEDS: RIVAROXABAN 20 MG TABLET PO SCH (08:17)
[2022-05-16] MEDS: PRIMIDONE 50 MG TAB PO SCH ×2 (08:17→16:07)
[2022-05-16] MEDS: METOPROLOL SUCCINATE 50 MG TAB XL PO SCH ×2 (08:18→16:08)
[2022-05-16] MEDS: AMIODARONE HCL 200 MG TAB PO SCH (08:19)
[2022-05-16] MEDS: FINASTERIDE 5 MG TAB PO SCH (08:19)
[2022-05-16] MEDS: VITAMIN E 400 UNIT CAP PO SCH ×2 (08:19→16:08)
[2022-05-16] MEDS: PIPERACILLIN/TAZOBACTAM 4.5 GM in SODIUM CHLORIDE 0.9% 100 ML IV SCH ×2 (08:25→20:15)
[2022-05-16] MEDS ORDERED: NON-FORMULARY MEDICATION (Simvastatin 10 MG) PO SCH (09:00)
[2022-05-16] MEDS ORDERED: SITAGLIPTIN 100 MG TAB PO SCH (09:00)
[2022-05-16] MEDS: ALFUZOSIN HCL 10 MG TAB.ER.24H PO SCH (10:44)
[2022-05-16] MEDS ORDERED: FUROSEMIDE INJ 10 MG/ML 4 ML VIAL IV ONE (12:00)
[2022-05-16] MEDS ORDERED: DEXTROSE 50% SYRINGE 50 ML IV PRN (13:00)
[2022-05-16 16:00] LABS: CREATINE KINASE MB 0.5 ng/mL (0-5.0)
[2022-05-16 16:15] LABS: ANION GAP 15.8 mmol/L (8-16); CALCIUM 8.9 mg/dL (8.4-10.2); CREATININE, SERUM 2.22 mg/dL (0.72-1.25); POTASSIUM 3.8 mmol/L (3.5-5.1)
[2022-05-16] MEDS: FUROSEMIDE INJ 10 MG/ML 4 ML VIAL IV SCH (20:15)
[2022-05-16] MEDS: SIMVASTATIN 20 MG TAB PO SCH (20:17)
[2022-05-16] MEDS: LATANOPROST(OPTH) 2.5 ML BTL OU SCH (20:22)
[2022-05-16] MEDS: INSULIN GLARGINE 100 UNITS/ML VIAL SQ SCH (20:30)
[2022-05-17] VITALS (27 sets, daily range): BP systolic 128–165; BP diastolic 54–122
[2022-05-17] MEDS: ALBUTEROL/IPRATROPIUM 3 ML NEB NEB SCH ×4 (00:25→19:42)
[2022-05-17 01:02] LABS: ANION GAP 12.5 mmol/L (8-16); CALCIUM 8.3 mg/dL (8.4-10.2); CREATININE, SERUM 2.25 mg/dL (0.72-1.25); POTASSIUM 3.5 mmol/L (3.5-5.1)
[2022-05-17 07:08] LABS: ALBUMIN 1.9 g/dL (3.5-5.0); ALBUMIN/GLOBULIN RATIO 0.5 (0.8-2.0); ANION GAP 13.6 mmol/L (8-16); CALCIUM 8.6 mg/dL (8.4-10.2); CREATININE, SERUM 2.19 mg/dL (0.72-1.25); POTASSIUM 3.6 mmol/L (3.5-5.1)
[2022-05-17] MEDS: ALFUZOSIN HCL 10 MG TAB.ER.24H PO SCH (09:32)
[2022-05-17] MEDS: RIVAROXABAN 20 MG TABLET PO SCH (09:32)
[2022-05-17] MEDS: PRIMIDONE 50 MG TAB PO SCH ×2 (09:33→17:14)
[2022-05-17] MEDS: FINASTERIDE 5 MG TAB PO SCH (09:33)
[2022-05-17] MEDS: METOPROLOL SUCCINATE 50 MG TAB XL PO SCH ×2 (09:33→17:14)
[2022-05-17] MEDS: AMIODARONE HCL 200 MG TAB PO SCH (09:33)
[2022-05-17] MEDS: VITAMIN E 400 UNIT CAP PO SCH ×2 (09:33→17:13)
[2022-05-17] MEDS ORDERED: SODIUM CHLORIDE 0.9% 100 ML ONE (09:33)
[2022-05-17] MEDS: FUROSEMIDE INJ 10 MG/ML 4 ML VIAL IV SCH ×2 (09:33→21:48)
[2022-05-17] MEDS: FAMOTIDINE 20 MG/2 ML VIAL IV SCH ×2 (09:33→21:47)
[2022-05-17] MEDS: PIPERACILLIN/TAZOBACTAM 4.5 GM in SODIUM CHLORIDE 0.9% 100 ML IV SCH ×2 (09:35→21:47)
[2022-05-17] MEDS: DEXTROSE 5%/0.225% SOD CHL 1,000 ML IV SCH ×2 (11:44→21:46)
[2022-05-17] MEDS: SODIUM BICARBONATE 650 MG TAB PO SCH (17:13)
[2022-05-17] MEDS: LATANOPROST(OPTH) 2.5 ML BTL OU SCH (21:00)
[2022-05-17] MEDS: MELATONIN 5 MG TABLET PO SCH (21:46)
[2022-05-17] MEDS: SIMVASTATIN 20 MG TAB PO SCH (21:46)
[2022-05-17] MEDS: ASCORBIC ACID 500 MG TAB PO SCH (21:46)
[2022-05-17] MEDS: METHYLPREDNISOLONE SOD SUCC 40 MG/ML VIAL 1ML IV SCH (21:47)
[2022-05-17] MEDS: INSULIN GLARGINE 100 UNITS/ML VIAL SQ SCH (22:02)
[2022-05-18] VITALS (32 sets, daily range): BP systolic 114–176; BP diastolic 54–102
[2022-05-18 05:37] LABS: ANION GAP 16.8 mmol/L (8-16); CALCIUM 8.2 mg/dL (8.4-10.2); CREATININE, SERUM 2.76 mg/dL (0.72-1.25); MAGNESIUM 2.2 MG/DL (1.3-2.1); PHOSPHORUS 3.9 MG/DL (2.3-4.7); POTASSIUM 3.8 mmol/L (3.5-5.1)
[2022-05-18] MEDS: ALBUTEROL/IPRATROPIUM 3 ML NEB NEB SCH ×5 (07:30→23:35)
[2022-05-18] MEDS: SODIUM BICARBONATE 650 MG TAB PO SCH ×2 (08:39→17:25)
[2022-05-18] MEDS: AMIODARONE HCL 200 MG TAB PO SCH (08:39)
[2022-05-18] MEDS: METOPROLOL SUCCINATE 50 MG TAB XL PO SCH ×2 (08:41→17:27)
[2022-05-18] MEDS: ALFUZOSIN HCL 10 MG TAB.ER.24H PO SCH (08:41)
[2022-05-18] MEDS: FINASTERIDE 5 MG TAB PO SCH (08:41)
[2022-05-18] MEDS: RIVAROXABAN 20 MG TABLET PO SCH (08:41)
[2022-05-18] MEDS: PRIMIDONE 50 MG TAB PO SCH ×2 (08:42→17:26)
[2022-05-18] MEDS: VITAMIN E 400 UNIT CAP PO SCH ×2 (08:42→17:26)
[2022-05-18] MEDS: METHYLPREDNISOLONE SOD SUCC 40 MG/ML VIAL 1ML IV SCH (08:43)
[2022-05-18] MEDS: FAMOTIDINE 20 MG/2 ML VIAL IV SCH ×2 (08:46→20:32)
[2022-05-18] MEDS: FUROSEMIDE INJ 10 MG/ML 4 ML VIAL IV SCH ×2 (08:48→20:33)
[2022-05-18] MEDS: PIPERACILLIN/TAZOBACTAM 4.5 GM in SODIUM CHLORIDE 0.9% 100 ML IV SCH ×2 (08:52→20:33)
[2022-05-18] MEDS: SIMVASTATIN 20 MG TAB PO SCH (20:34)
[2022-05-18] MEDS: MELATONIN 5 MG TABLET PO SCH (20:34)
[2022-05-18] MEDS: ASCORBIC ACID 500 MG TAB PO SCH (20:34)
[2022-05-18] MEDS: LATANOPROST(OPTH) 2.5 ML BTL OU SCH (20:36)
[2022-05-18] MEDS ORDERED: INSULIN GLARGINE 100 UNITS/ML VIAL SQ SCH (21:00)
[2022-05-19] VITALS (26 sets, daily range): BP systolic 142–220; BP diastolic 51–115
[2022-05-19] MEDS: DEXTROSE 5%/0.225% SOD CHL 1,000 ML IV SCH ×2 (03:24→19:27)
[2022-05-19] MEDS: HYDRALAZINE HCL 20 MG/ML VIAL IV PRN ×2 (03:30→21:28)
[2022-05-19 06:37] LABS: BASOPHILS % 0.1 % (0.0-1.0); EOSINOPHILS % 0.5 % (0.0-6.0); HEMATOCRIT 34.2 % (38.2-49.6); HEMOGLOBIN 11.2 g/dL (14.0-18.0); LYMPHOCYTES # (AUTO) 0.5 (1.0-3.2); LYMPHOCYTES % 5.9 % (18.0-39.1); MEAN CORPUSCULAR HEMOGLOBIN 30.1 pg (28-32); MEAN CORPUSCULAR HGB CONC 32.7 g/dL (31-35); MEAN CORPUSCULAR VOLUME 91.9 fL (81-99); MONOCYTES # (AUTO) 0.7 (0.2-0.8); MONOCYTES % 7.7 % (4.4-11.3); NEUTROPHILS # (AUTO) 7.6 (2.1-6.9); NEUTROPHILS % 85.3 % (38.7-80.0); PLATELET COUNT 221 x10e3/uL (140-360); RED BLOOD COUNT 3.72 x10e6/uL (4.3-5.7)
[2022-05-19 06:57] LABS: ANION GAP 17.8 mmol/L (8-16); CALCIUM 8.6 mg/dL (8.4-10.2); CREATININE, SERUM 3.01 mg/dL (0.72-1.25); POTASSIUM 3.8 mmol/L (3.5-5.1)
[2022-05-19] MEDS: ALBUTEROL/IPRATROPIUM 3 ML NEB NEB SCH ×4 (07:19→23:54)
[2022-05-19] MEDS: METHYLPREDNISOLONE SOD SUCC 40 MG/ML VIAL 1ML IV SCH (07:48)
[2022-05-19] MEDS: ALFUZOSIN HCL 10 MG TAB.ER.24H PO SCH (09:19)
[2022-05-19] MEDS: FINASTERIDE 5 MG TAB PO SCH (09:20)
[2022-05-19] MEDS: SODIUM BICARBONATE 650 MG TAB PO SCH ×2 (09:20→16:33)
[2022-05-19] MEDS: VITAMIN E 400 UNIT CAP PO SCH ×2 (09:20→16:33)
[2022-05-19] MEDS: METOPROLOL SUCCINATE 50 MG TAB XL PO SCH ×2 (09:21→16:34)
[2022-05-19] MEDS: AMIODARONE HCL 200 MG TAB PO SCH (09:21)
[2022-05-19] MEDS: PRIMIDONE 50 MG TAB PO SCH ×2 (09:22→16:35)
[2022-05-19] MEDS: FAMOTIDINE 20 MG/2 ML VIAL IV SCH ×2 (09:31→20:45)
[2022-05-19] MEDS: PIPERACILLIN/TAZOBACTAM 4.5 GM in SODIUM CHLORIDE 0.9% 100 ML IV SCH ×2 (09:32→20:45)
[2022-05-19] MEDS: INSULIN REGULAR, HUMAN 3ML VL 100 UNIT in SODIUM CHLORIDE 0.9% 100 ML IV SCH ×2 (10:14)
[2022-05-19] MEDS ORDERED: RIVAROXABAN 15 MG TABLET PO SCH (17:00)
[2022-05-19] MEDS ORDERED: ACETYLCYSTEINE 20% INHAL SOLN 30 ML VIAL INH SCH (17:00)
[2022-05-19] MEDS: ACETYLCYSTEINE 200 MG/ML 4ML VIAL INH SCH (19:15)
[2022-05-19] MEDS: LATANOPROST(OPTH) 2.5 ML BTL OU SCH (20:46)
[2022-05-19] MEDS: SIMVASTATIN 20 MG TAB PO SCH (20:46)
[2022-05-19] MEDS: ASCORBIC ACID 500 MG TAB PO SCH (20:46)
[2022-05-19] MEDS: MELATONIN 5 MG TABLET PO SCH (20:47)
[2022-05-19] MEDS: ACETAMINOPHEN 325 MG TAB PO PRN (20:47)
[2022-05-19] MEDS: INSULIN GLARGINE 100 UNITS/ML VIAL SQ SCH (20:50)
[2022-05-19] MEDS ORDERED: DEXMEDETOMIDINE 400MCG/NS100ML 100 ML IV PRN (22:30)
[2022-05-19] MEDS ORDERED: FUROSEMIDE INJ 10 MG/ML 4 ML VIAL IV ONE ×2 (22:30→22:45)
[2022-05-19 23:17] LABS: ABG PCO2 34 mmHg (35-45); ABG PH 7.39 (7.35-7.45); ABG PO2 67 mmHg (80-105)
[2022-05-19 23:18] LABS: ABG HCO3 20 mmol/L (22-26); ABG TCO2 21
[2022-05-20] VITALS (63 sets, daily range): BP systolic 85–207; BP diastolic 44–66
[2022-05-20] MEDS: ACETYLCYSTEINE 200 MG/ML 4ML VIAL INH SCH ×2 (07:23→19:20)
[2022-05-20] MEDS: ALBUTEROL/IPRATROPIUM 3 ML NEB NEB SCH ×3 (07:23→19:20)
[2022-05-20] MEDS: METHYLPREDNISOLONE SOD SUCC 40 MG/ML VIAL 1ML IV SCH (07:54)
[2022-05-20] MEDS: AMIODARONE HCL 200 MG TAB PO SCH (09:00)
[2022-05-20] MEDS: ALFUZOSIN HCL 10 MG TAB.ER.24H PO SCH (09:00)
[2022-05-20] MEDS: SODIUM BICARBONATE 650 MG TAB PO SCH ×2 (09:00→17:56)
[2022-05-20] MEDS: VITAMIN E 400 UNIT CAP PO SCH ×2 (09:00→17:56)
[2022-05-20] MEDS: METOPROLOL SUCCINATE 50 MG TAB XL PO SCH ×2 (09:00→17:00)
[2022-05-20] MEDS: FINASTERIDE 5 MG TAB PO SCH (09:00)
[2022-05-20] MEDS: PRIMIDONE 50 MG TAB PO SCH ×2 (09:00→17:56)
[2022-05-20] MEDS: FAMOTIDINE 20 MG/2 ML VIAL IV SCH ×2 (09:20→20:47)
[2022-05-20] MEDS: PIPERACILLIN/TAZOBACTAM 4.5 GM in SODIUM CHLORIDE 0.9% 100 ML IV SCH ×2 (09:21→20:50)
[2022-05-20 10:35] LABS: ANION GAP 17.4 mmol/L (8-16); CALCIUM 8.3 mg/dL (8.4-10.2); CREATININE, SERUM 3.66 mg/dL (0.72-1.25); POTASSIUM 3.4 mmol/L (3.5-5.1)
[2022-05-20] MEDS ORDERED: KCL 20MEQ/.9 SOD CHL 1,000 ML IV ONE (10:45)
[2022-05-20 10:53] LABS: INR 1.3; PROTHROMBIN TIME 17.3 seconds (11.9-14.5)
[2022-05-20] MEDS ORDERED: Vancomycin IV 1 GM in SODIUM CHLORIDE 0.9% 250ML 250 ML IV ONE (11:30)
[2022-05-20] MEDS ORDERED: LIDOCAINE HCL-PF 4% 40 MG/1 ML 5ML AMP ONE (13:04)
[2022-05-20] MEDS ORDERED: LIDOCAINE HCL 4% 50 ML BTL ONE (13:06)
[2022-05-20] MEDS ORDERED: ACETYLCYSTEINE 20% INHAL SOLN 30 ML VIAL INH ONE (13:30)
[2022-05-20] MEDS ORDERED: SODIUM CHLORIDE 0.9% 1000ML 1,000 ML ONE (13:43)
[2022-05-20] MEDS ORDERED: PROPOFOL IV EMULSION 10MG/ML 100 ML IV PRN (13:45)
[2022-05-20] MEDS: PROPOFOL IV EMULSION 10MG/ML 100 ML IV SCH (14:00)
[2022-05-20] MEDS: HYDRALAZINE HCL 20 MG/ML VIAL IV PRN (14:24)
[2022-05-20] MEDS: FENTANYL 2000MCG/NS 250 250 ML IV SCH (14:24)
[2022-05-20] MEDS: SODIUM CHLORIDE 0.9% 250ML IRRIG IR SCH ×3 (14:30→21:45)
[2022-05-20 16:01] LABS: ABG HCO3 23 mmol/L (22-26); ABG PCO2 59 mmHg (35-45); ABG PH 7.19 (7.35-7.45); ABG PO2 98 mmHg (80-105); ABG TCO2 24
[2022-05-20 17:21] LABS: BODY FLUID APPEARANCE TURBID; BODY FLUID COLOR RED; BODY FLUID TYPE BRONCHIAL WASHING
[2022-05-20 17:22] LABS: RBC,BODY FLUID 74000 cells/uL; WBC,BODY FLUID 758 cells/uL
[2022-05-20 18:16] LABS: LYMPHOCYTES,BODY FLUID 25 %; MONO/MACROPHG,BODY FLUID 25 %; NEUTROPHILS,BODY FLUID 50 %
[2022-05-20] MEDS ORDERED: DEXTROSE 5%/0.9% SOD CHL 1,000 ML IV SCH (20:30)
[2022-05-20] MEDS: ASCORBIC ACID 500 MG TAB PO SCH (20:47)
[2022-05-20] MEDS: LATANOPROST(OPTH) 2.5 ML BTL OU SCH (20:47)
[2022-05-20] MEDS: SIMVASTATIN 20 MG TAB PO SCH (20:48)
[2022-05-20] MEDS: MELATONIN 5 MG TABLET PO SCH (20:49)
[2022-05-20] MEDS: INSULIN GLARGINE 100 UNITS/ML VIAL SQ SCH (20:49)
[2022-05-20 21:01] LABS: ABG HCO3 22 mmol/L (22-26); ABG PCO2 44 mmHg (35-45); ABG PH 7.29 (7.35-7.45); ABG PO2 115 mmHg (80-105); ABG TCO2 23
[2022-05-21] VITALS (44 sets, daily range): BP systolic 91–145; BP diastolic 42–66
[2022-05-21] MEDS: ALBUTEROL/IPRATROPIUM 3 ML NEB NEB SCH ×4 (01:00→20:40)
[2022-05-21] MEDS: PROPOFOL IV EMULSION 10MG/ML 100 ML IV SCH ×5 (01:20→22:40)
[2022-05-21] MEDS: SODIUM CHLORIDE 0.9% 250ML IRRIG IR SCH ×6 (01:45→20:41)
[2022-05-21 04:16] LABS: BASOPHILS % 0.1 % (0.0-1.0); EOSINOPHILS # (AUTO) 0.1 (0.0-0.4); EOSINOPHILS % 0.6 % (0.0-6.0); HEMATOCRIT 33.4 % (38.2-49.6); HEMOGLOBIN 10.5 g/dL (14.0-18.0); LYMPHOCYTES # (AUTO) 0.7 (1.0-3.2); LYMPHOCYTES % 7.7 % (18.0-39.1); MEAN CORPUSCULAR HEMOGLOBIN 30.1 pg (28-32); MEAN CORPUSCULAR HGB CONC 31.4 g/dL (31-35); MEAN CORPUSCULAR VOLUME 95.7 fL (81-99); MONOCYTES # (AUTO) 0.7 (0.2-0.8); MONOCYTES % 8.2 % (4.4-11.3); NEUTROPHILS # (AUTO) 7.3 (2.1-6.9); NEUTROPHILS % 82.5 % (38.7-80.0); PLATELET COUNT 211 x10e3/uL (140-360); RED BLOOD COUNT 3.49 x10e6/uL (4.3-5.7); RED CELL DISTRIBUTION WIDTH 13.7 % (11.7-14.4)
[2022-05-21 04:35] LABS: ALBUMIN 1.6 g/dL (3.5-5.0); ALBUMIN/GLOBULIN RATIO 0.4 (0.8-2.0); ANION GAP 18.1 mmol/L (8-16); CALCIUM 8.1 mg/dL (8.4-10.2); CREATININE, SERUM 4.28 mg/dL (0.72-1.25); POTASSIUM 4.1 mmol/L (3.5-5.1)
[2022-05-21] MEDS: ACETYLCYSTEINE 200 MG/ML 4ML VIAL INH SCH ×2 (07:00→20:40)
[2022-05-21] MEDS: FENTANYL 2000MCG/NS 250 250 ML IV SCH (08:56)
[2022-05-21] MEDS: METOPROLOL SUCCINATE 50 MG TAB XL PO SCH ×2 (09:00→17:28)
[2022-05-21] MEDS ORDERED: DOXYCYCLINE HYCLATE TABLET 100 MG TAB PO SCH ×2 (09:30→10:00)
[2022-05-21] MEDS: ALFUZOSIN HCL 10 MG TAB.ER.24H PO SCH (10:16)
[2022-05-21] MEDS: PRIMIDONE 50 MG TAB PO SCH ×2 (10:16→17:29)
[2022-05-21] MEDS: HEPARIN SOD (PORCINE) 5,000 UNIT/ML VIAL SC SCH ×2 (10:16→20:43)
[2022-05-21] MEDS: FINASTERIDE 5 MG TAB PO SCH (10:17)
[2022-05-21] MEDS: SODIUM BICARBONATE 650 MG TAB PO SCH ×2 (10:18→17:28)
[2022-05-21] MEDS: AMIODARONE HCL 200 MG TAB PO SCH (10:21)
[2022-05-21] MEDS: SODIUM BICARBONATE 8.4% 150 ML in STERILE WATER IV SOLN 1,000 ML IV SCH (11:09)
[2022-05-21] MEDS ORDERED: SODIUM CHLORIDE 0.9% 250ML 250 ML ONE (12:07)
[2022-05-21] MEDS ORDERED: LIDOCAINE HCL 1% LOCAL INJ 20 ML VIAL ONE (12:07)
[2022-05-21] MEDS ORDERED: LINEZOLID 600 MG/D5W 300ML 300 ML IV SCH (14:30)
[2022-05-21] MEDS ORDERED: HEPARIN SOD (PORCINE) 1000 UNIT/ML SDV ONE (14:48)
[2022-05-21 15:58] LABS: CALCIUM 7.6 mg/dL (8.4-10.2); CREATININE, SERUM 4.62 mg/dL (0.72-1.25)
[2022-05-21 16:33] LABS: BODY FLUID APPEARANCE SL.CLOUDY; BODY FLUID COLOR YELLOW; BODY FLUID TYPE PLEURAL; RBC,BODY FLUID 5000 cells/uL; WBC,BODY FLUID 1299 cells/uL
[2022-05-21] MEDS ORDERED: BUMETANIDE INJ 0.25MG/ML 4ML VIAL IV ONE (17:15)
[2022-05-21] MEDS: LINEZOLID 600 MG/D5W 300ML 300 ML IV SCH (17:50)
[2022-05-21] MEDS: INSULIN REGULAR, HUMAN 3ML VL 100 UNIT in SODIUM CHLORIDE 0.9% 100 ML IV SCH ×2 (17:59)
[2022-05-21 18:24] LABS: LYMPHOCYTES,BODY FLUID 77 %; MONO/MACROPHG,BODY FLUID 22 %; NEUTROPHILS,BODY FLUID 1 %
[2022-05-21] MEDS: SIMVASTATIN 20 MG TAB PO SCH (20:35)
[2022-05-21] MEDS: INSULIN GLARGINE 100 UNITS/ML VIAL SQ SCH (20:37)
[2022-05-21] MEDS: LATANOPROST(OPTH) 2.5 ML BTL OU SCH (20:38)
[2022-05-22] VITALS (42 sets, daily range): BP systolic 82–139; BP diastolic 36–50
[2022-05-22] MEDS: SODIUM CHLORIDE 0.9% 250ML IRRIG IR SCH ×6 (01:16→21:16)
[2022-05-22] MEDS: FENTANYL 2000MCG/NS 250 250 ML IV SCH ×2 (02:01→20:18)
[2022-05-22] MEDS: ALBUTEROL/IPRATROPIUM 3 ML NEB NEB SCH ×4 (03:10→19:05)
[2022-05-22] MEDS: PROPOFOL IV EMULSION 10MG/ML 100 ML IV SCH ×4 (03:19→20:17)
[2022-05-22 04:37] LABS: ALBUMIN 1.4 g/dL (3.5-5.0); ALBUMIN/GLOBULIN RATIO 0.4 (0.8-2.0); ANION GAP 16.1 mmol/L (8-16); CALCIUM 7.6 mg/dL (8.4-10.2); CREATININE, SERUM 4.81 mg/dL (0.72-1.25); POTASSIUM 4.1 mmol/L (3.5-5.1)
[2022-05-22] MEDS: LINEZOLID 600 MG/D5W 300ML 300 ML IV SCH ×2 (05:25→17:58)
[2022-05-22] MEDS: SODIUM BICARBONATE 8.4% 150 ML in STERILE WATER IV SOLN 1,000 ML IV SCH ×2 (05:42→20:12)
[2022-05-22] MEDS: ACETYLCYSTEINE 200 MG/ML 4ML VIAL INH SCH ×3 (07:15→19:05)
[2022-05-22] MEDS ORDERED: MANNITOL 25% 12.5GM/50ML 50 ML ONE (08:54)
[2022-05-22] MEDS ORDERED: SODIUM CHLORIDE 0.9% 1000ML 2,000 ML ONE (08:54)
[2022-05-22] MEDS: METOPROLOL SUCCINATE 50 MG TAB XL PO SCH ×2 (09:00→18:04)
[2022-05-22] MEDS: SODIUM BICARBONATE 650 MG TAB PO SCH ×2 (09:31→17:57)
[2022-05-22] MEDS: AMIODARONE HCL 200 MG TAB PO SCH (09:31)
[2022-05-22] MEDS: PRIMIDONE 50 MG TAB PO SCH ×2 (09:31→17:57)
[2022-05-22] MEDS: ALFUZOSIN HCL 10 MG TAB.ER.24H PO SCH (09:31)
[2022-05-22] MEDS: FINASTERIDE 5 MG TAB PO SCH (09:31)
[2022-05-22] MEDS: INSULIN REGULAR, HUMAN 3ML VL 100 UNIT in SODIUM CHLORIDE 0.9% 100 ML IV SCH ×4 (09:43→20:19)
[2022-05-22] MEDS: SIMVASTATIN 20 MG TAB PO SCH (20:10)
[2022-05-22] MEDS: LATANOPROST(OPTH) 2.5 ML BTL OU SCH (20:11)
[2022-05-22] MEDS: INSULIN GLARGINE 100 UNITS/ML VIAL SQ SCH (20:15)
[2022-05-22] MEDS: HEPARIN SOD (PORCINE) 5,000 UNIT/ML VIAL SC SCH (20:20)
[2022-05-23] VITALS (94 sets, daily range): BP systolic 106–173; BP diastolic 37–63
[2022-05-23] MEDS: SODIUM CHLORIDE 0.9% 250ML IRRIG IR SCH ×6 (02:11→21:45)
[2022-05-23] MEDS: PROPOFOL IV EMULSION 10MG/ML 100 ML IV SCH ×5 (02:11→22:45)
[2022-05-23] MEDS: ACETYLCYSTEINE 200 MG/ML 4ML VIAL INH SCH ×4 (03:00→19:30)
[2022-05-23] MEDS: ALBUTEROL/IPRATROPIUM 3 ML NEB NEB SCH ×4 (03:20→19:30)
[2022-05-23] MEDS: LINEZOLID 600 MG/D5W 300ML 300 ML IV SCH ×2 (05:33→17:54)
[2022-05-23 05:46] LABS: HEMATOCRIT 28.5 % (38.2-49.6); HEMOGLOBIN 8.9 g/dL (14.0-18.0); MEAN CORPUSCULAR HGB CONC 31.2 g/dL (31-35); PLATELET COUNT 220 x10e3/uL (140-360); RED BLOOD COUNT 2.97 x10e6/uL (4.3-5.7); RED CELL DISTRIBUTION WIDTH 13.8 % (11.7-14.4)
[2022-05-23 06:11] LABS: ALBUMIN 1.3 g/dL (3.5-5.0); ALBUMIN/GLOBULIN RATIO 0.3 (0.8-2.0); ANION GAP 17.2 mmol/L (8-16); CALCIUM 7.8 mg/dL (8.4-10.2); CREATININE, SERUM 3.97 mg/dL (0.72-1.25); POTASSIUM 4.2 mmol/L (3.5-5.1)
[2022-05-23] MEDS: SODIUM BICARBONATE 650 MG TAB PO SCH ×2 (09:00→17:51)
[2022-05-23] MEDS: PRIMIDONE 50 MG TAB PO SCH ×2 (09:00→17:53)
[2022-05-23] MEDS: METOPROLOL SUCCINATE 50 MG TAB XL PO SCH ×2 (09:00→17:53)
[2022-05-23] MEDS ORDERED: HEPARIN SOD (PORCINE) 5,000 UNIT/ML VIAL SC PRN (09:30)
[2022-05-23] MEDS ORDERED: SODIUM CHLORIDE 0.9% 250ML 500 ML IV PRN (09:30)
[2022-05-23] MEDS ORDERED: HEPARIN SOD (PORCINE) 5,000 UNIT/ML VIAL IV PRN (09:30)
[2022-05-23] MEDS ORDERED: ALBUMIN 25% 25GM 100ML 0.25 GM/ML BTL IV PRN (09:30)
[2022-05-23] MEDS ORDERED: SODIUM CHLORIDE 0.9% 1000ML 2,000 ML IV PRN (09:30)
[2022-05-23] MEDS: HEPARIN SOD (PORCINE) 5,000 UNIT/ML VIAL SC SCH ×2 (09:59→20:51)
[2022-05-23] MEDS: DEXTROSE 5%/0.9% SOD CHL 1,000 ML IV SCH (13:37)
[2022-05-23] MEDS ORDERED: LIDOCAINE HCL 4% 50 ML BTL ONE (14:46)
[2022-05-23] MEDS ORDERED: LIDOCAINE HCL 2% JELLY 5 ML TUBE ONE (14:46)
[2022-05-23] MEDS ORDERED: ROCURONIUM BROMIDE 10 MG/ML 5ML VIAL IV ONE (15:10)
[2022-05-23] MEDS ORDERED: EPINEPHRINE HCL SYRINGE ONE (15:45)
[2022-05-23] MEDS: FENTANYL 2000MCG/NS 250 250 ML IV SCH (15:58)
[2022-05-23] MEDS: AMIODARONE HCL 200 MG TAB PO SCH (16:24)
[2022-05-23] MEDS: FINASTERIDE 5 MG TAB PO SCH (16:24)
[2022-05-23] MEDS: ALFUZOSIN HCL 10 MG TAB.ER.24H PO SCH (16:24)
[2022-05-23] MEDS: INSULIN REGULAR, HUMAN 3ML VL 100 UNIT in SODIUM CHLORIDE 0.9% 100 ML IV SCH ×2 (19:10)
[2022-05-23] MEDS: SIMVASTATIN 20 MG TAB PO SCH (20:50)
[2022-05-23] MEDS: LATANOPROST(OPTH) 2.5 ML BTL OU SCH (20:50)
[2022-05-23] MEDS: INSULIN GLARGINE 100 UNITS/ML VIAL SQ SCH (20:58)
[2022-05-24] VITALS (102 sets, daily range): BP systolic 95–194; BP diastolic 40–69
[2022-05-24] MEDS: SODIUM CHLORIDE 0.9% 250ML IRRIG IR SCH ×6 (01:45→21:45)
[2022-05-24] MEDS: ALBUTEROL/IPRATROPIUM 3 ML NEB NEB SCH ×4 (03:00→19:40)
[2022-05-24] MEDS: PROPOFOL IV EMULSION 10MG/ML 100 ML IV SCH ×2 (04:34→17:28)
[2022-05-24] MEDS: LINEZOLID 600 MG/D5W 300ML 300 ML IV SCH ×2 (05:07→20:34)
[2022-05-24] MEDS: DEXTROSE 5%/0.9% SOD CHL 1,000 ML IV SCH (05:08)
[2022-05-24 05:50] LABS: BASOPHILS % 0.3 % (0.0-1.0); EOSINOPHILS # (AUTO) 0.1 (0.0-0.4); EOSINOPHILS % 0.8 % (0.0-6.0); HEMATOCRIT 27.4 % (38.2-49.6); HEMOGLOBIN 8.6 g/dL (14.0-18.0); LYMPHOCYTES # (AUTO) 0.7 (1.0-3.2); LYMPHOCYTES % 10.8 % (18.0-39.1); MEAN CORPUSCULAR HEMOGLOBIN 30.2 pg (28-32); MEAN CORPUSCULAR HGB CONC 31.4 g/dL (31-35); MEAN CORPUSCULAR VOLUME 96.1 fL (81-99); MONOCYTES # (AUTO) 0.6 (0.2-0.8); MONOCYTES % 9.2 % (4.4-11.3); NEUTROPHILS # (AUTO) 4.6 (2.1-6.9); NEUTROPHILS % 76.7 % (38.7-80.0); PLATELET COUNT 217 x10e3/uL (140-360); RED BLOOD COUNT 2.85 x10e6/uL (4.3-5.7); RED CELL DISTRIBUTION WIDTH 13.6 % (11.7-14.4)
[2022-05-24 06:06] LABS: ALBUMIN 1.3 g/dL (3.5-5.0); ALBUMIN/GLOBULIN RATIO 0.3 (0.8-2.0); ANION GAP 13.3 mmol/L (8-16); CALCIUM 7.8 mg/dL (8.4-10.2); CREATININE, SERUM 3.16 mg/dL (0.72-1.25); MAGNESIUM 2.2 MG/DL (1.3-2.1); POTASSIUM 4.3 mmol/L (3.5-5.1)
[2022-05-24] MEDS: ACETYLCYSTEINE 200 MG/ML 4ML VIAL INH SCH ×3 (07:10→19:40)
[2022-05-24] MEDS: FINASTERIDE 5 MG TAB PO SCH (09:17)
[2022-05-24] MEDS: PRIMIDONE 50 MG TAB PO SCH ×2 (09:17→20:33)
[2022-05-24] MEDS: SODIUM BICARBONATE 650 MG TAB PO SCH ×2 (09:17→20:33)
[2022-05-24] MEDS: ALFUZOSIN HCL 10 MG TAB.ER.24H PO SCH (09:17)
[2022-05-24] MEDS: AMIODARONE HCL 200 MG TAB PO SCH (09:17)
[2022-05-24] MEDS: METOPROLOL SUCCINATE 50 MG TAB XL PO SCH ×2 (09:18→20:34)
[2022-05-24] MEDS: HEPARIN SOD (PORCINE) 5,000 UNIT/ML VIAL SC SCH ×2 (09:20→21:05)
[2022-05-24] MEDS: HYDRALAZINE HCL 20 MG/ML VIAL IV PRN (19:30)
[2022-05-24] MEDS: LATANOPROST(OPTH) 2.5 ML BTL OU SCH (20:34)
[2022-05-24] MEDS: SIMVASTATIN 20 MG TAB PO SCH (20:34)
[2022-05-24] MEDS: INSULIN GLARGINE 100 UNITS/ML VIAL SQ SCH (21:05)
[2022-05-24] MEDS: FENTANYL 2000MCG/NS 250 250 ML IV SCH (23:24)
[2022-05-25] VITALS (86 sets, daily range): BP systolic 98–175; BP diastolic 39–57
[2022-05-25] MEDS: SODIUM CHLORIDE 0.9% 250ML IRRIG IR SCH ×6 (01:45→21:50)
[2022-05-25] MEDS: ALBUTEROL/IPRATROPIUM 3 ML NEB NEB SCH ×4 (02:30→19:30)
[2022-05-25] MEDS: ACETYLCYSTEINE 200 MG/ML 4ML VIAL INH SCH ×4 (02:30→19:30)
[2022-05-25] MEDS: LINEZOLID 600 MG/D5W 300ML 300 ML IV SCH ×2 (05:14→16:23)
[2022-05-25] MEDS: HYDRALAZINE HCL 20 MG/ML VIAL IV PRN (06:04)
[2022-05-25 06:16] LABS: BASOPHILS % 0.3 % (0.0-1.0); EOSINOPHILS # (AUTO) 0.1 (0.0-0.4); EOSINOPHILS % 1.2 % (0.0-6.0); HEMATOCRIT 29.7 % (38.2-49.6); HEMOGLOBIN 9.5 g/dL (14.0-18.0); LYMPHOCYTES # (AUTO) 0.8 (1.0-3.2); LYMPHOCYTES % 10.8 % (18.0-39.1); MEAN CORPUSCULAR HEMOGLOBIN 30.3 pg (28-32); MEAN CORPUSCULAR VOLUME 94.6 fL (81-99); MONOCYTES # (AUTO) 0.7 (0.2-0.8); MONOCYTES % 9.5 % (4.4-11.3); NEUTROPHILS # (AUTO) 5.7 (2.1-6.9); NEUTROPHILS % 76.3 % (38.7-80.0); PLATELET COUNT 246 x10e3/uL (140-360); RED BLOOD COUNT 3.14 x10e6/uL (4.3-5.7); RED CELL DISTRIBUTION WIDTH 13.4 % (11.7-14.4)
[2022-05-25 06:36] LABS: ALBUMIN 1.4 g/dL (3.5-5.0); ALBUMIN/GLOBULIN RATIO 0.3 (0.8-2.0); ANION GAP 12.9 mmol/L (8-16); CALCIUM 8.3 mg/dL (8.4-10.2); CREATININE, SERUM 2.53 mg/dL (0.72-1.25); MAGNESIUM 2.3 MG/DL (1.3-2.1); POTASSIUM 3.9 mmol/L (3.5-5.1)
[2022-05-25] MEDS: ALFUZOSIN HCL 10 MG TAB.ER.24H PO SCH (08:17)
[2022-05-25] MEDS: AMIODARONE HCL 200 MG TAB PO SCH (08:17)
[2022-05-25] MEDS: SODIUM BICARBONATE 650 MG TAB PO SCH ×2 (08:17→16:22)
[2022-05-25] MEDS: PRIMIDONE 50 MG TAB PO SCH ×2 (08:17→16:23)
[2022-05-25] MEDS: METOPROLOL SUCCINATE 50 MG TAB XL PO SCH ×2 (08:18→16:22)
[2022-05-25] MEDS: FINASTERIDE 5 MG TAB PO SCH (08:19)
[2022-05-25] MEDS: HEPARIN SOD (PORCINE) 5,000 UNIT/ML VIAL SC SCH ×2 (08:20→21:52)
[2022-05-25] MEDS: PROPOFOL IV EMULSION 10MG/ML 100 ML IV SCH ×3 (08:37→21:45)
[2022-05-25 08:39] LABS: ABG HCO3 31 mmol/L (22-26); ABG PCO2 38 mmHg (35-45); ABG PH 7.51 (7.35-7.45); ABG PO2 72 mmHg (80-105); ABG TCO2 32
[2022-05-25] MEDS: INSULIN REGULAR, HUMAN 3ML VL 100 UNIT in SODIUM CHLORIDE 0.9% 100 ML IV SCH ×2 (09:43)
[2022-05-25] MEDS ORDERED: ROCURONIUM BROMIDE 10 MG/ML 5ML VIAL IV NR (16:15)
[2022-05-25] MEDS ORDERED: LIDOCAINE HCL 2% JELLY 5 ML TUBE ONE (17:13)
[2022-05-25] MEDS ORDERED: LIDOCAINE HCL 4% 50 ML BTL ONE (17:14)
[2022-05-25] MEDS: SIMVASTATIN 20 MG TAB PO SCH (21:44)
[2022-05-25] MEDS: LATANOPROST(OPTH) 2.5 ML BTL OU SCH (21:47)
[2022-05-25] MEDS: INSULIN GLARGINE 100 UNITS/ML VIAL SQ SCH (21:49)
[2022-05-26] VITALS (40 sets, daily range): BP systolic 100–169; BP diastolic 41–71
[2022-05-26] MEDS: ACETYLCYSTEINE 200 MG/ML 4ML VIAL INH SCH ×4 (01:05→19:00)
[2022-05-26] MEDS: ALBUTEROL/IPRATROPIUM 3 ML NEB NEB SCH ×4 (01:05→19:00)
[2022-05-26] MEDS: SODIUM CHLORIDE 0.9% 250ML IRRIG IR SCH ×6 (02:13→20:36)
[2022-05-26] MEDS: PROPOFOL IV EMULSION 10MG/ML 100 ML IV SCH ×5 (04:19→21:42)
[2022-05-26] MEDS: FENTANYL 2000MCG/NS 250 250 ML IV SCH (04:20)
[2022-05-26] MEDS: LINEZOLID 600 MG/D5W 300ML 300 ML IV SCH ×2 (05:54→17:08)
[2022-05-26 06:34] LABS: BASOPHILS % 0.5 % (0.0-1.0); EOSINOPHILS # (AUTO) 0.1 (0.0-0.4); HEMATOCRIT 28.4 % (38.2-49.6); HEMOGLOBIN 8.8 g/dL (14.0-18.0); LYMPHOCYTES # (AUTO) 0.6 (1.0-3.2); LYMPHOCYTES % 10.4 % (18.0-39.1); MEAN CORPUSCULAR VOLUME 96.9 fL (81-99); MONOCYTES # (AUTO) 0.6 (0.2-0.8); MONOCYTES % 8.9 % (4.4-11.3); NEUTROPHILS # (AUTO) 4.7 (2.1-6.9); NEUTROPHILS % 75.5 % (38.7-80.0); PLATELET COUNT 236 x10e3/uL (140-360); RED BLOOD COUNT 2.93 x10e6/uL (4.3-5.7); RED CELL DISTRIBUTION WIDTH 13.4 % (11.7-14.4)
[2022-05-26 07:05] LABS: ANION GAP 13.9 mmol/L (8-16); CALCIUM 8.3 mg/dL (8.4-10.2); CREATININE, SERUM 3.18 mg/dL (0.72-1.25); MAGNESIUM 2.6 MG/DL (1.3-2.1); POTASSIUM 3.9 mmol/L (3.5-5.1)
[2022-05-26] MEDS: ALFUZOSIN HCL 10 MG TAB.ER.24H PO SCH (08:04)
[2022-05-26] MEDS: METOPROLOL SUCCINATE 50 MG TAB XL PO SCH ×2 (08:05→16:44)
[2022-05-26] MEDS: SODIUM BICARBONATE 650 MG TAB PO SCH ×2 (08:06→16:44)
[2022-05-26] MEDS: AMIODARONE HCL 200 MG TAB PO SCH (08:06)
[2022-05-26] MEDS: FINASTERIDE 5 MG TAB PO SCH (08:06)
[2022-05-26] MEDS: PRIMIDONE 50 MG TAB PO SCH ×2 (08:06→16:44)
[2022-05-26] MEDS: HEPARIN SOD (PORCINE) 5,000 UNIT/ML VIAL SC SCH ×2 (08:08→20:26)
[2022-05-26 08:42] LABS: ABG HCO3 32 mmol/L (22-26); ABG PCO2 47 mmHg (35-45); ABG PH 7.44 (7.35-7.45); ABG PO2 78 mmHg (80-105); ABG TCO2 33
[2022-05-26] MEDS: INSULIN REGULAR, HUMAN 3ML VL 100 UNIT in SODIUM CHLORIDE 0.9% 100 ML IV SCH ×2 (11:06)
[2022-05-26] MEDS ORDERED: HEPARIN SOD (PORCINE) 1000 UNIT/ML SDV ONE (20:02)
[2022-05-26] MEDS: LATANOPROST(OPTH) 2.5 ML BTL OU SCH (20:24)
[2022-05-26] MEDS: SIMVASTATIN 20 MG TAB PO SCH (20:24)
[2022-05-26] MEDS ORDERED: INSULIN GLARGINE 100 UNITS/ML VIAL SQ SCH (21:00)
[2022-05-26] MEDS ORDERED: DEXMEDETOMIDINE 400MCG/NS100ML 100 ML IV PRN (21:00)
[2022-05-27] VITALS (40 sets, daily range): BP systolic 114–231; BP diastolic 43–88
[2022-05-27] MEDS: ALBUTEROL/IPRATROPIUM 3 ML NEB NEB SCH ×4 (01:20→20:10)
[2022-05-27] MEDS: ACETYLCYSTEINE 200 MG/ML 4ML VIAL INH SCH ×4 (01:20→20:10)
[2022-05-27] MEDS: SODIUM CHLORIDE 0.9% 250ML IRRIG IR SCH ×4 (02:00→11:18)
[2022-05-27] MEDS: PROPOFOL IV EMULSION 10MG/ML 100 ML IV SCH (03:05)
[2022-05-27] MEDS: INSULIN REGULAR, HUMAN 3ML VL 100 UNIT in SODIUM CHLORIDE 0.9% 100 ML IV SCH ×2 (03:15)
[2022-05-27] MEDS: HYDRALAZINE HCL 20 MG/ML VIAL IV PRN (05:09)
[2022-05-27] MEDS: LINEZOLID 600 MG/D5W 300ML 300 ML IV SCH ×2 (06:02→21:45)
[2022-05-27 06:04] LABS: CALCIUM 8.2 mg/dL (8.4-10.2); CREATININE, SERUM 2.36 mg/dL (0.72-1.25)
[2022-05-27] MEDS: HEPARIN SOD (PORCINE) 5,000 UNIT/ML VIAL SC SCH ×2 (08:42→21:51)
[2022-05-27] MEDS: FINASTERIDE 5 MG TAB PO SCH (09:00)
[2022-05-27] MEDS: ALFUZOSIN HCL 10 MG TAB.ER.24H PO SCH (09:00)
[2022-05-27] MEDS: PRIMIDONE 50 MG TAB PO SCH ×2 (09:00→16:23)
[2022-05-27] MEDS: SODIUM BICARBONATE 650 MG TAB PO SCH ×2 (09:00→16:23)
[2022-05-27] MEDS: AMIODARONE HCL 200 MG TAB PO SCH (09:00)
[2022-05-27] MEDS: METOPROLOL SUCCINATE 50 MG TAB XL PO SCH ×2 (09:00→16:23)
[2022-05-27 09:24] LABS: ABG HCO3 31 mmol/L (22-26); ABG PCO2 42 mmHg (35-45); ABG PH 7.48 (7.35-7.45); ABG PO2 50 mmHg (80-105); ABG TCO2 33
[2022-05-27] MEDS ORDERED: BUMETANIDE INJ 0.25MG/ML 4ML VIAL IV ONE (11:00)
[2022-05-27 11:12] LABS: HEMATOCRIT 29.9 % (38.2-49.6); HEMOGLOBIN 9.5 g/dL (14.0-18.0); MEAN CORPUSCULAR HEMOGLOBIN 29.9 pg (28-32); MEAN CORPUSCULAR HGB CONC 31.8 g/dL (31-35); PLATELET COUNT 255 x10e3/uL (140-360); RED BLOOD COUNT 3.18 x10e6/uL (4.3-5.7); RED CELL DISTRIBUTION WIDTH 13.2 % (11.7-14.4)
[2022-05-27] MEDS: FENTANYL 2000MCG/NS 250 250 ML IV SCH (11:18)
[2022-05-27 11:32] LABS: ALBUMIN 1.5 g/dL (3.5-5.0); ALBUMIN/GLOBULIN RATIO 0.3 (0.8-2.0); CALCIUM 8.4 mg/dL (8.4-10.2); CREATININE, SERUM 2.51 mg/dL (0.72-1.25)
[2022-05-27 11:49] LABS: MAGNESIUM 2.4 MG/DL (1.3-2.1); PHOSPHORUS 3.9 MG/DL (2.3-4.7)
[2022-05-27] MEDS: DEXTROSE 5% 1,000 ML IV SCH (11:56)
[2022-05-27] MEDS ORDERED: MICAFUNGIN SODIUM 50 MG/50 ML BAG IV SCH (13:30)
[2022-05-27] MEDS ORDERED: HYDRALAZINE HCL 20 MG/ML VIAL IV ONE ×2 (13:30→16:30)
[2022-05-27] MEDS ORDERED: MICAFUNGIN SODIUM 100 ML IV ONE (14:00)
[2022-05-27] MEDS ORDERED: NITROGLYCERIN/D5W 200 MCG/ML 250 ML IV PRN (14:15)
[2022-05-27] MEDS: NICARDIPINE 20MG/200ML PREMIX 200 ML IV SCH ×2 (16:14→21:47)
[2022-05-27 16:29] LABS: ABG HCO3 31 mmol/L (22-26); ABG PCO2 51 mmHg (35-45); ABG PH 7.38 (7.35-7.45); ABG PO2 61 mmHg (80-105); ABG TCO2 32
[2022-05-27] MEDS ORDERED: ESMOLOL HCL 2500MG/250 ML 250 ML IV SCH (19:30)
[2022-05-27] MEDS: SIMVASTATIN 20 MG TAB PO SCH (21:00)
[2022-05-27] MEDS: INSULIN GLARGINE 100 UNITS/ML VIAL SQ SCH (21:00)
[2022-05-27] MEDS: LATANOPROST(OPTH) 2.5 ML BTL OU SCH (21:52)
[2022-05-27] MEDS ORDERED: ESMOLOL HCL 2500MG/250 ML 250 ML IV PRN (22:15)
[2022-05-28] VITALS (31 sets, daily range): BP systolic 150–182; BP diastolic 49–69
[2022-05-28] MEDS: ALBUTEROL/IPRATROPIUM 3 ML NEB NEB SCH ×3 (01:05→20:20)
[2022-05-28] MEDS: ACETYLCYSTEINE 200 MG/ML 4ML VIAL INH SCH ×4 (01:05→20:20)
[2022-05-28] MEDS: LINEZOLID 600 MG/D5W 300ML 300 ML IV SCH ×2 (05:35→17:29)
[2022-05-28] MEDS: NICARDIPINE 20MG/200ML PREMIX 200 ML IV SCH (05:36)
[2022-05-28 05:43] LABS: BASOPHILS % 0.4 % (0.0-1.0); EOSINOPHILS % 0.4 % (0.0-6.0); HEMATOCRIT 30.8 % (38.2-49.6); HEMOGLOBIN 9.7 g/dL (14.0-18.0); LYMPHOCYTES # (AUTO) 0.8 (1.0-3.2); LYMPHOCYTES % 7.8 % (18.0-39.1); MEAN CORPUSCULAR HEMOGLOBIN 29.6 pg (28-32); MEAN CORPUSCULAR HGB CONC 31.5 g/dL (31-35); MEAN CORPUSCULAR VOLUME 93.9 fL (81-99); MONOCYTES # (AUTO) 0.7 (0.2-0.8); MONOCYTES % 6.5 % (4.4-11.3); NEUTROPHILS # (AUTO) 8.6 (2.1-6.9); NEUTROPHILS % 83.2 % (38.7-80.0); PLATELET COUNT 266 x10e3/uL (140-360); RED BLOOD COUNT 3.28 x10e6/uL (4.3-5.7); RED CELL DISTRIBUTION WIDTH 13.2 % (11.7-14.4)
[2022-05-28 05:58] LABS: ANION GAP 14.2 mmol/L (8-16); CALCIUM 8.4 mg/dL (8.4-10.2); CREATININE, SERUM 2.02 mg/dL (0.72-1.25); POTASSIUM 3.2 mmol/L (3.5-5.1)
[2022-05-28] MEDS: METOPROLOL SUCCINATE 50 MG TAB XL PO SCH ×2 (09:00→16:15)
[2022-05-28] MEDS: ALFUZOSIN HCL 10 MG TAB.ER.24H PO SCH (09:00)
[2022-05-28] MEDS: SODIUM BICARBONATE 650 MG TAB PO SCH ×2 (09:00→16:15)
[2022-05-28] MEDS: AMIODARONE HCL 200 MG TAB PO SCH (09:00)
[2022-05-28] MEDS: FINASTERIDE 5 MG TAB PO SCH (09:00)
[2022-05-28] MEDS: PRIMIDONE 50 MG TAB PO SCH ×2 (09:00→16:15)
[2022-05-28] MEDS: HEPARIN SOD (PORCINE) 5,000 UNIT/ML VIAL SC SCH (09:39)
[2022-05-28] MEDS: CLONIDINE HCL 0.3MG/24 HR PATCH TOP SCH (09:51)
[2022-05-28 10:58] LABS: ANION GAP 15.2 mmol/L (8-16); CALCIUM 8.5 mg/dL (8.4-10.2); CREATININE, SERUM 2.09 mg/dL (0.72-1.25); POTASSIUM 3.2 mmol/L (3.5-5.1)
[2022-05-28 11:11] LABS: MAGNESIUM 2.1 MG/DL (1.3-2.1); PHOSPHORUS 2.6 MG/DL (2.3-4.7)
[2022-05-28] MEDS ORDERED: HEPARIN SOD (PORCINE) 1000 UNIT/ML SDV IV PRN (13:15)
[2022-05-28] MEDS ORDERED: FLUCONAZOLE 200 MG/100 ML 100 ML IV SCH (17:00)
[2022-05-28] MEDS: DEXTROSE 5% 1,000 ML IV SCH (17:46)
[2022-05-28] MEDS: SIMVASTATIN 20 MG TAB PO SCH (20:41)
[2022-05-28] MEDS: LATANOPROST(OPTH) 2.5 ML BTL OU SCH (20:59)
[2022-05-28] MEDS: INSULIN GLARGINE 100 UNITS/ML VIAL SQ SCH (21:02)
[2022-05-29] VITALS (31 sets, daily range): BP systolic 150–193; BP diastolic 46–124
[2022-05-29] MEDS: ALBUTEROL/IPRATROPIUM 3 ML NEB NEB SCH ×4 (02:50→19:35)
[2022-05-29] MEDS: ACETYLCYSTEINE 200 MG/ML 4ML VIAL INH SCH ×3 (02:50→19:35)
[2022-05-29] MEDS: LINEZOLID 600 MG/D5W 300ML 300 ML IV SCH ×2 (05:12→17:43)
[2022-05-29] MEDS: HYDRALAZINE HCL 20 MG/ML VIAL IV PRN (05:24)
[2022-05-29 06:03] LABS: ALBUMIN 1.7 g/dL (3.5-5.0); ALBUMIN/GLOBULIN RATIO 0.4 (0.8-2.0); ANION GAP 13.4 mmol/L (8-16); CALCIUM 8.5 mg/dL (8.4-10.2); CREATININE, SERUM 2.36 mg/dL (0.72-1.25); POTASSIUM 3.4 mmol/L (3.5-5.1)
[2022-05-29] MEDS: PRIMIDONE 50 MG TAB PO SCH ×2 (09:00→16:17)
[2022-05-29] MEDS: SODIUM BICARBONATE 650 MG TAB PO SCH (09:00)
[2022-05-29] MEDS: METOPROLOL SUCCINATE 50 MG TAB XL PO SCH ×2 (09:00→16:17)
[2022-05-29] MEDS: ALFUZOSIN HCL 10 MG TAB.ER.24H PO SCH (09:00)
[2022-05-29] MEDS: FINASTERIDE 5 MG TAB PO SCH (09:00)
[2022-05-29] MEDS: AMIODARONE HCL 200 MG TAB PO SCH (09:00)
[2022-05-29] MEDS: ENALAPRILAT IV INJ 1.25 MG/ML VIAL IV SCH ×3 (12:03→23:35)
[2022-05-29] MEDS: DEXTROSE 5% 1,000 ML IV SCH (12:03)
[2022-05-29 14:42] LABS: BASOPHILS # (AUTO) 0.1 (0.0-0.1); BASOPHILS % 0.6 % (0.0-1.0); EOSINOPHILS % 0.2 % (0.0-6.0); HEMATOCRIT 30.7 % (38.2-49.6); HEMOGLOBIN 10.3 g/dL (14.0-18.0); LYMPHOCYTES # (AUTO) 0.7 (1.0-3.2); LYMPHOCYTES % 8.9 % (18.0-39.1); MEAN CORPUSCULAR HEMOGLOBIN 30.4 pg (28-32); MEAN CORPUSCULAR HGB CONC 33.6 g/dL (31-35); MEAN CORPUSCULAR VOLUME 90.6 fL (81-99); MONOCYTES # (AUTO) 0.7 (0.2-0.8); MONOCYTES % 7.8 % (4.4-11.3); NEUTROPHILS # (AUTO) 6.7 (2.1-6.9); NEUTROPHILS % 81.1 % (38.7-80.0); PLATELET COUNT 264 x10e3/uL (140-360); RED BLOOD COUNT 3.39 x10e6/uL (4.3-5.7); RED CELL DISTRIBUTION WIDTH 13.2 % (11.7-14.4)
[2022-05-29] MEDS: LIDOCAINE 4% PATCH TP SCH (14:59)
[2022-05-29] MEDS: SIMVASTATIN 20 MG TAB PO SCH (19:47)
[2022-05-29] MEDS: PERIPHERAL TPN FORMULA 1 BAG IV SCH (20:10)
[2022-05-29] MEDS: ACETAMINOPHEN 1000 MG/100 ML IV PRN (20:12)
[2022-05-29] MEDS: INSULIN GLARGINE 100 UNITS/ML VIAL SQ SCH (21:40)
[2022-05-29] MEDS: LATANOPROST(OPTH) 2.5 ML BTL OU SCH (21:46)
[2022-05-30] VITALS (43 sets, daily range): BP systolic 123–189; BP diastolic 50–78
[2022-05-30] MEDS: ACETYLCYSTEINE 200 MG/ML 4ML VIAL INH SCH ×4 (00:10→19:45)
[2022-05-30] MEDS: ALBUTEROL/IPRATROPIUM 3 ML NEB NEB SCH ×5 (00:10→19:45)
[2022-05-30] MEDS: ENALAPRILAT IV INJ 1.25 MG/ML VIAL IV SCH ×4 (05:04→23:54)
[2022-05-30] MEDS: LINEZOLID 600 MG/D5W 300ML 300 ML IV SCH (05:04)
[2022-05-30 05:35] LABS: BASOPHILS # (AUTO) 0.1 (0.0-0.1); BASOPHILS % 0.6 % (0.0-1.0); EOSINOPHILS % 0.3 % (0.0-6.0); HEMATOCRIT 31.7 % (38.2-49.6); HEMOGLOBIN 10.3 g/dL (14.0-18.0); LYMPHOCYTES # (AUTO) 0.9 (1.0-3.2); LYMPHOCYTES % 9.3 % (18.0-39.1); MEAN CORPUSCULAR HEMOGLOBIN 29.5 pg (28-32); MEAN CORPUSCULAR HGB CONC 32.5 g/dL (31-35); MEAN CORPUSCULAR VOLUME 90.8 fL (81-99); MONOCYTES # (AUTO) 0.8 (0.2-0.8); MONOCYTES % 7.4 % (4.4-11.3); NEUTROPHILS # (AUTO) 8.2 (2.1-6.9); NEUTROPHILS % 81.4 % (38.7-80.0); PLATELET COUNT 256 x10e3/uL (140-360); RED BLOOD COUNT 3.49 x10e6/uL (4.3-5.7); RED CELL DISTRIBUTION WIDTH 13.2 % (11.7-14.4)
[2022-05-30] MEDS: HYDRALAZINE HCL 20 MG/ML VIAL IV PRN (05:38)
[2022-05-30 05:54] LABS: ALBUMIN 1.8 g/dL (3.5-5.0); ALBUMIN/GLOBULIN RATIO 0.4 (0.8-2.0); ANION GAP 14.4 mmol/L (8-16); CALCIUM 8.7 mg/dL (8.4-10.2); CREATININE, SERUM 2.39 mg/dL (0.72-1.25); MAGNESIUM 2.1 MG/DL (1.3-2.1); PHOSPHORUS 3.9 MG/DL (2.3-4.7); POTASSIUM 3.4 mmol/L (3.5-5.1)
[2022-05-30] MEDS: PRIMIDONE 50 MG TAB PO SCH ×2 (09:00→16:52)
[2022-05-30] MEDS: METOPROLOL SUCCINATE 50 MG TAB XL PO SCH ×2 (09:00→16:53)
[2022-05-30] MEDS: AMIODARONE HCL 200 MG TAB PO SCH (09:00)
[2022-05-30] MEDS: FINASTERIDE 5 MG TAB PO SCH (09:00)
[2022-05-30] MEDS: LIDOCAINE 4% PATCH TP SCH (09:45)
[2022-05-30] MEDS: ACETAMINOPHEN 1000 MG/100 ML IV PRN (14:58)
[2022-05-30] MEDS ORDERED: INSULIN LISPRO 100 UNIT/1 ML 3ML VIAL SQ SCH (16:30)
[2022-05-30] MEDS: LATANOPROST(OPTH) 2.5 ML BTL OU SCH (20:48)
[2022-05-30] MEDS: PERIPHERAL TPN FORMULA 1 BAG IV SCH (20:50)
[2022-05-30] MEDS: SIMVASTATIN 20 MG TAB PO SCH (20:50)
[2022-05-30] MEDS: INSULIN GLARGINE 100 UNITS/ML VIAL SQ SCH (20:50)
[2022-05-30] MEDS: INSULIN LISPRO 100 UNIT/1 ML 3ML VIAL SQ SCH (23:53)
[2022-05-31] VITALS (21 sets, daily range): BP systolic 111–189; BP diastolic 47–60
[2022-05-31] MEDS: ACETYLCYSTEINE 200 MG/ML 4ML VIAL INH SCH ×4 (00:35→18:55)
[2022-05-31] MEDS: ALBUTEROL/IPRATROPIUM 3 ML NEB NEB SCH ×4 (00:35→18:55)
[2022-05-31] MEDS: HYDRALAZINE HCL 20 MG/ML VIAL IV PRN (04:06)
[2022-05-31] MEDS: ACETAMINOPHEN 1000 MG/100 ML IV PRN ×5 (04:06→15:29)
[2022-05-31] MEDS: ENALAPRILAT IV INJ 1.25 MG/ML VIAL IV SCH ×3 (06:01→17:44)
[2022-05-31] MEDS: INSULIN LISPRO 100 UNIT/1 ML 3ML VIAL SQ SCH ×3 (06:03→18:00)
[2022-05-31 06:28] LABS: BASOPHILS # (AUTO) 0.1 (0.0-0.1); BASOPHILS % 0.4 % (0.0-1.0); EOSINOPHILS % 0.2 % (0.0-6.0); HEMATOCRIT 29.8 % (38.2-49.6); HEMOGLOBIN 9.8 g/dL (14.0-18.0); LYMPHOCYTES # (AUTO) 0.7 (1.0-3.2); LYMPHOCYTES % 6.1 % (18.0-39.1); MEAN CORPUSCULAR HEMOGLOBIN 30.3 pg (28-32); MEAN CORPUSCULAR HGB CONC 32.9 g/dL (31-35); MEAN CORPUSCULAR VOLUME 92.3 fL (81-99); MONOCYTES # (AUTO) 0.7 (0.2-0.8); MONOCYTES % 6.1 % (4.4-11.3); NEUTROPHILS # (AUTO) 10.3 (2.1-6.9); NEUTROPHILS % 86.4 % (38.7-80.0); PLATELET COUNT 239 x10e3/uL (140-360); RED BLOOD COUNT 3.23 x10e6/uL (4.3-5.7); RED CELL DISTRIBUTION WIDTH 13.8 % (11.7-14.4)
[2022-05-31 06:53] LABS: MAGNESIUM 2.7 MG/DL (1.3-2.1)
[2022-05-31 06:55] LABS: ALBUMIN 1.7 g/dL (3.5-5.0); ALBUMIN/GLOBULIN RATIO 0.4 (0.8-2.0); ANION GAP 16.5 mmol/L (8-16); CALCIUM 8.6 mg/dL (8.4-10.2); CREATININE, SERUM 2.68 mg/dL (0.72-1.25); POTASSIUM 4.5 mmol/L (3.5-5.1)
[2022-05-31 07:23] LABS: PHOSPHORUS 4.8 MG/DL (2.3-4.7)
[2022-05-31] MEDS: AMIODARONE HCL 200 MG TAB PO SCH (09:00)
[2022-05-31] MEDS: METOPROLOL SUCCINATE 50 MG TAB XL PO SCH ×2 (09:00→17:00)
[2022-05-31] MEDS: PRIMIDONE 50 MG TAB PO SCH ×2 (09:00→17:00)
[2022-05-31] MEDS: FINASTERIDE 5 MG TAB PO SCH (09:00)
[2022-05-31] MEDS ORDERED: BUMETANIDE INJ 0.25MG/ML 4ML VIAL IV NR (09:15)
[2022-05-31] MEDS: LIDOCAINE 4% PATCH TP SCH (09:50)
[2022-05-31] MEDS: DEXTROSE 5%/0.9% SOD CHL 1,000 ML IV SCH ×2 (10:25→22:09)
[2022-05-31] MEDS ORDERED: ALBUMIN 25% 12.5GM 50ML 150 ML IV ONE (11:00)
[2022-05-31] MEDS: SIMVASTATIN 20 MG TAB PO SCH (21:00)
[2022-05-31] MEDS: INSULIN GLARGINE 100 UNITS/ML VIAL SQ SCH (21:10)
[2022-05-31] MEDS: LATANOPROST(OPTH) 2.5 ML BTL OU SCH (21:13)
[2022-06-01] VITALS (25 sets, daily range): BP systolic 114–169; BP diastolic 42–67
[2022-06-01] MEDS: INSULIN LISPRO 100 UNIT/1 ML 3ML VIAL SQ SCH ×4 (00:17→17:52)
[2022-06-01] MEDS: ALBUTEROL/IPRATROPIUM 3 ML NEB NEB SCH ×4 (00:25→18:55)
[2022-06-01] MEDS: ACETYLCYSTEINE 200 MG/ML 4ML VIAL INH SCH ×4 (00:25→18:55)
[2022-06-01] MEDS: ENALAPRILAT IV INJ 1.25 MG/ML VIAL IV SCH ×4 (05:39→17:51)
[2022-06-01 08:04] LABS: BASOPHILS # (AUTO) 0.1 (0.0-0.1); BASOPHILS % 0.6 % (0.0-1.0); HEMATOCRIT 28.5 % (38.2-49.6); HEMOGLOBIN 8.9 g/dL (14.0-18.0); LYMPHOCYTES % 9.5 % (18.0-39.1); MEAN CORPUSCULAR HEMOGLOBIN 29.2 pg (28-32); MEAN CORPUSCULAR HGB CONC 31.2 g/dL (31-35); MEAN CORPUSCULAR VOLUME 93.4 fL (81-99); MONOCYTES # (AUTO) 0.7 (0.2-0.8); MONOCYTES % 6.6 % (4.4-11.3); NEUTROPHILS # (AUTO) 8.7 (2.1-6.9); NEUTROPHILS % 82.8 % (38.7-80.0); PLATELET COUNT 233 x10e3/uL (140-360); RED BLOOD COUNT 3.05 x10e6/uL (4.3-5.7); RED CELL DISTRIBUTION WIDTH 13.7 % (11.7-14.4)
[2022-06-01 08:35] LABS: CALCIUM 8.4 mg/dL (8.4-10.2); CREATININE, SERUM 2.29 mg/dL (0.72-1.25)
[2022-06-01] MEDS: FINASTERIDE 5 MG TAB PO SCH (09:00)
[2022-06-01] MEDS: AMIODARONE HCL 200 MG TAB PO SCH (09:00)
[2022-06-01] MEDS: PRIMIDONE 50 MG TAB PO SCH ×2 (09:00→17:00)
[2022-06-01] MEDS: METOPROLOL SUCCINATE 50 MG TAB XL PO SCH ×2 (09:00→17:00)
[2022-06-01] MEDS: LIDOCAINE 4% PATCH TP SCH (09:57)
[2022-06-01] MEDS: ACETAMINOPHEN 1000 MG/100 ML IV PRN (14:33)
[2022-06-01] MEDS: SIMVASTATIN 20 MG TAB PO SCH (19:43)
[2022-06-01] MEDS: LATANOPROST(OPTH) 2.5 ML BTL OU SCH (21:30)
[2022-06-01] MEDS: INSULIN GLARGINE 100 UNITS/ML VIAL SQ SCH (21:33)
[2022-06-02] VITALS (23 sets, daily range): BP systolic 135–183; BP diastolic 48–156
[2022-06-02] MEDS: ENALAPRILAT IV INJ 1.25 MG/ML VIAL IV SCH ×5 (00:38→23:45)
[2022-06-02] MEDS: INSULIN LISPRO 100 UNIT/1 ML 3ML VIAL SQ SCH ×5 (06:00→23:45)
[2022-06-02] MEDS: DEXTROSE 5%/0.9% SOD CHL 1,000 ML IV SCH ×2 (06:24→21:03)
[2022-06-02] MEDS: ACETYLCYSTEINE 200 MG/ML 4ML VIAL INH SCH ×4 (06:51→19:46)
[2022-06-02] MEDS: ALBUTEROL/IPRATROPIUM 3 ML NEB NEB SCH ×4 (06:51→19:46)
[2022-06-02] MEDS: ACETAMINOPHEN 1000 MG/100 ML IV PRN (08:07)
[2022-06-02] MEDS: PRIMIDONE 50 MG TAB PO SCH ×2 (08:08→17:00)
[2022-06-02] MEDS: AMIODARONE HCL 200 MG TAB PO SCH (08:08)
[2022-06-02] MEDS: LIDOCAINE 4% PATCH TP SCH (08:08)
[2022-06-02] MEDS: METOPROLOL SUCCINATE 50 MG TAB XL PO SCH ×2 (08:09→17:00)
[2022-06-02] MEDS: FINASTERIDE 5 MG TAB PO SCH (08:09)
[2022-06-02 08:20] LABS: BASOPHILS # (AUTO) 0.1 (0.0-0.1); BASOPHILS % 0.9 % (0.0-1.0); EOSINOPHILS # (AUTO) 0.1 (0.0-0.4); EOSINOPHILS % 1.1 % (0.0-6.0); HEMATOCRIT 29.5 % (38.2-49.6); HEMOGLOBIN 9.4 g/dL (14.0-18.0); LYMPHOCYTES % 12.4 % (18.0-39.1); MEAN CORPUSCULAR HEMOGLOBIN 29.7 pg (28-32); MEAN CORPUSCULAR HGB CONC 31.9 g/dL (31-35); MEAN CORPUSCULAR VOLUME 93.4 fL (81-99); MONOCYTES # (AUTO) 0.6 (0.2-0.8); MONOCYTES % 7.7 % (4.4-11.3); NEUTROPHILS # (AUTO) 6.1 (2.1-6.9); NEUTROPHILS % 77.3 % (38.7-80.0); PLATELET COUNT 262 x10e3/uL (140-360); RED BLOOD COUNT 3.16 x10e6/uL (4.3-5.7); RED CELL DISTRIBUTION WIDTH 13.3 % (11.7-14.4)
[2022-06-02 09:07] LABS: ANION GAP 17.2 mmol/L (8-16); CALCIUM 8.9 mg/dL (8.4-10.2); CREATININE, SERUM 2.62 mg/dL (0.72-1.25); POTASSIUM 4.2 mmol/L (3.5-5.1)
[2022-06-02] MEDS ORDERED: BUMETANIDE INJ 0.25MG/ML 4ML VIAL IV ONE (17:35)
[2022-06-02] MEDS: SIMVASTATIN 20 MG TAB PO SCH (21:00)
[2022-06-02] MEDS: LATANOPROST(OPTH) 2.5 ML BTL OU SCH (21:04)
[2022-06-02] MEDS: INSULIN GLARGINE 100 UNITS/ML VIAL SQ SCH (21:06)
[2022-06-03] VITALS (23 sets, daily range): BP systolic 139–185; BP diastolic 32–91
[2022-06-03] MEDS: ALBUTEROL/IPRATROPIUM 3 ML NEB NEB SCH ×4 (00:35→19:30)
[2022-06-03] MEDS: ACETYLCYSTEINE 200 MG/ML 4ML VIAL INH SCH ×4 (00:35→19:30)
[2022-06-03] MEDS: ENALAPRILAT IV INJ 1.25 MG/ML VIAL IV SCH ×3 (05:45→17:41)
[2022-06-03] MEDS: INSULIN LISPRO 100 UNIT/1 ML 3ML VIAL SQ SCH ×3 (06:00→18:00)
[2022-06-03 06:46] LABS: ANION GAP 15.2 mmol/L (8-16); CALCIUM 8.9 mg/dL (8.4-10.2); CREATININE, SERUM 2.34 mg/dL (0.72-1.25); POTASSIUM 4.2 mmol/L (3.5-5.1)
[2022-06-03] MEDS: PRIMIDONE 50 MG TAB PO SCH ×2 (09:00→16:39)
[2022-06-03] MEDS: AMIODARONE HCL 200 MG TAB PO SCH (09:00)
[2022-06-03] MEDS: METOPROLOL SUCCINATE 50 MG TAB XL PO SCH ×2 (09:00→16:39)
[2022-06-03] MEDS: FINASTERIDE 5 MG TAB PO SCH (09:00)
[2022-06-03] MEDS ORDERED: BUMETANIDE INJ 0.25MG/ML 4ML VIAL IV ONE (10:00)
[2022-06-03] MEDS: LIDOCAINE 4% PATCH TP SCH (11:35)
[2022-06-03] MEDS: BALSAM PERU/CASTOR OIL 60 GM OINT...G. TP SCH (11:40)
[2022-06-03] MEDS: ACETAMINOPHEN 1000 MG/100 ML IV PRN (13:20)
[2022-06-03] MEDS: DEXTROSE 5%/0.9% SOD CHL 1,000 ML IV SCH (17:40)
[2022-06-03] MEDS: SIMVASTATIN 20 MG TAB PO SCH (21:00)
[2022-06-03] MEDS: LATANOPROST(OPTH) 2.5 ML BTL OU SCH (22:00)
[2022-06-03] MEDS: INSULIN GLARGINE 100 UNITS/ML VIAL SQ SCH (22:03)
[2022-06-03] MEDS: PERIPHERAL TPN FORMULA 1 BAG IV SCH (22:06)
[2022-06-04] VITALS (24 sets, daily range): BP systolic 151–194; BP diastolic 49–87
[2022-06-04] MEDS: ENALAPRILAT IV INJ 1.25 MG/ML VIAL IV SCH ×4 (01:02→18:12)
[2022-06-04] MEDS: ALBUTEROL/IPRATROPIUM 3 ML NEB NEB SCH ×4 (01:05→19:30)
[2022-06-04] MEDS: ACETYLCYSTEINE 200 MG/ML 4ML VIAL INH SCH ×4 (01:05→19:30)
[2022-06-04 05:22] LABS: ALBUMIN 1.9 g/dL (3.5-5.0); ALBUMIN/GLOBULIN RATIO 0.4 (0.8-2.0); ANION GAP 14.8 mmol/L (8-16); CALCIUM 9.4 mg/dL (8.4-10.2); CREATININE, SERUM 2.26 mg/dL (0.72-1.25); POTASSIUM 3.8 mmol/L (3.5-5.1)
[2022-06-04] MEDS: INSULIN LISPRO 100 UNIT/1 ML 3ML VIAL SQ SCH ×4 (06:00→18:00)
[2022-06-04] MEDS ORDERED: ACETAMINOPHEN 1000 MG/100 ML IV PRN (08:15)
[2022-06-04] MEDS: HYDRALAZINE HCL 20 MG/ML VIAL IV PRN (08:46)
[2022-06-04] MEDS: LIDOCAINE 4% PATCH TP SCH (08:47)
[2022-06-04] MEDS: FINASTERIDE 5 MG TAB PO SCH (09:00)
[2022-06-04] MEDS: PRIMIDONE 50 MG TAB PO SCH ×2 (09:00→17:00)
[2022-06-04] MEDS: METOPROLOL SUCCINATE 50 MG TAB XL PO SCH ×2 (09:00→17:00)
[2022-06-04] MEDS: AMIODARONE HCL 200 MG TAB PO SCH (09:00)
[2022-06-04] MEDS: CLONIDINE HCL 0.3MG/24 HR PATCH TOP SCH (09:13)
[2022-06-04] MEDS ORDERED: BUMETANIDE INJ 0.25MG/ML 4ML VIAL IV ONE (10:30)
[2022-06-04] MEDS: ALBUTEROL SULF 0.083% NEB SOLN 3 ML NEB NEB PRN (10:30)
[2022-06-04] MEDS: BALSAM PERU/CASTOR OIL 60 GM OINT...G. TP SCH (10:49)
[2022-06-04] MEDS: PERIPHERAL TPN FORMULA 1 BAG IV SCH (19:20)
[2022-06-04] MEDS: SIMVASTATIN 20 MG TAB PO SCH (20:52)
[2022-06-04] MEDS: INSULIN GLARGINE 100 UNITS/ML VIAL SQ SCH (21:01)
[2022-06-04] MEDS: LATANOPROST(OPTH) 2.5 ML BTL OU SCH (21:03)
[2022-06-05] VITALS (24 sets, daily range): BP systolic 131–181; BP diastolic 57–82
[2022-06-05] MEDS: ENALAPRILAT IV INJ 1.25 MG/ML VIAL IV SCH ×4 (00:57→12:51)
[2022-06-05] MEDS: INSULIN LISPRO 100 UNIT/1 ML 3ML VIAL SQ SCH ×4 (01:00→17:47)
[2022-06-05] MEDS: ACETYLCYSTEINE 200 MG/ML 4ML VIAL INH SCH ×3 (02:15→13:15)
[2022-06-05] MEDS: ALBUTEROL/IPRATROPIUM 3 ML NEB NEB SCH ×5 (02:15→19:40)
[2022-06-05 06:32] LABS: ALBUMIN 1.9 g/dL (3.5-5.0); ALBUMIN/GLOBULIN RATIO 0.4 (0.8-2.0); ANION GAP 15.5 mmol/L (8-16); CALCIUM 9.6 mg/dL (8.4-10.2); CREATININE, SERUM 2.02 mg/dL (0.72-1.25); MAGNESIUM 2.1 MG/DL (1.3-2.1); PHOSPHORUS 2.9 MG/DL (2.3-4.7); POTASSIUM 3.5 mmol/L (3.5-5.1)
[2022-06-05] MEDS: PRIMIDONE 50 MG TAB PO SCH ×2 (08:36→16:37)
[2022-06-05] MEDS: AMIODARONE HCL 200 MG TAB PO SCH (08:36)
[2022-06-05] MEDS: METOPROLOL SUCCINATE 50 MG TAB XL PO SCH ×2 (08:38→16:37)
[2022-06-05] MEDS: BALSAM PERU/CASTOR OIL 60 GM OINT...G. TP SCH (10:09)
[2022-06-05] MEDS: LIDOCAINE 4% PATCH TP SCH (10:09)
[2022-06-05] MEDS ORDERED: DEXTROSE 5% 1,000 ML IV ONE (11:30)
[2022-06-05] MEDS ORDERED: POTASSIUM CHLORIDE 20MEQ/100ML 100 ML IV ONE (11:30)
[2022-06-05] MEDS: SIMVASTATIN 20 MG TAB PO SCH (21:00)
[2022-06-05] MEDS: INSULIN GLARGINE 100 UNITS/ML VIAL SQ SCH (21:25)
[2022-06-05] MEDS: LATANOPROST(OPTH) 2.5 ML BTL OU SCH (21:26)
[2022-06-06] VITALS (25 sets, daily range): BP systolic 120–162; BP diastolic 55–82
[2022-06-06] MEDS: ENALAPRILAT IV INJ 1.25 MG/ML VIAL IV SCH ×4 (00:01→18:42)
[2022-06-06] MEDS: INSULIN LISPRO 100 UNIT/1 ML 3ML VIAL SQ SCH ×4 (00:06→18:00)
[2022-06-06] MEDS: ALBUTEROL/IPRATROPIUM 3 ML NEB NEB SCH ×4 (00:10→19:20)
[2022-06-06 05:25] LABS: ANION GAP 14.7 mmol/L (8-16); CALCIUM 9.4 mg/dL (8.4-10.2); CREATININE, SERUM 1.92 mg/dL (0.72-1.25); POTASSIUM 3.7 mmol/L (3.5-5.1)
[2022-06-06] MEDS: PRIMIDONE 50 MG TAB PO SCH ×2 (08:15→15:55)
[2022-06-06] MEDS: METOPROLOL SUCCINATE 50 MG TAB XL PO SCH ×2 (08:15→15:55)
[2022-06-06] MEDS: AMIODARONE HCL 200 MG TAB PO SCH (08:15)
[2022-06-06] MEDS: LIDOCAINE 4% PATCH TP SCH (10:00)
[2022-06-06] MEDS: BALSAM PERU/CASTOR OIL 60 GM OINT...G. TP SCH (10:00)
[2022-06-06] MEDS: DEXTROSE 5% 1,000 ML IV SCH ×2 (10:18→23:32)
[2022-06-06] MEDS: SIMVASTATIN 20 MG TAB PO SCH (21:00)
[2022-06-06] MEDS: INSULIN GLARGINE 100 UNITS/ML VIAL SQ SCH (21:20)
[2022-06-06] MEDS: LATANOPROST(OPTH) 2.5 ML BTL OU SCH (21:23)
[2022-06-07] VITALS (24 sets, daily range): BP systolic 126–180; BP diastolic 47–67
[2022-06-07] MEDS: ENALAPRILAT IV INJ 1.25 MG/ML VIAL IV SCH ×4 (00:14→18:19)
[2022-06-07] MEDS: INSULIN LISPRO 100 UNIT/1 ML 3ML VIAL SQ SCH ×4 (00:18→18:19)
[2022-06-07] MEDS: ALBUTEROL/IPRATROPIUM 3 ML NEB NEB SCH ×4 (02:30→19:00)
[2022-06-07 05:51] LABS: BASOPHILS # (AUTO) 0.1 (0.0-0.1); BASOPHILS % 1.2 % (0.0-1.0); EOSINOPHILS # (AUTO) 0.2 (0.0-0.4); EOSINOPHILS % 2.8 % (0.0-6.0); HEMOGLOBIN 9.7 g/dL (14.0-18.0); LYMPHOCYTES # (AUTO) 0.9 (1.0-3.2); LYMPHOCYTES % 15.9 % (18.0-39.1); MEAN CORPUSCULAR HEMOGLOBIN 29.6 pg (28-32); MEAN CORPUSCULAR HGB CONC 32.3 g/dL (31-35); MEAN CORPUSCULAR VOLUME 91.5 fL (81-99); MONOCYTES # (AUTO) 0.5 (0.2-0.8); MONOCYTES % 8.8 % (4.4-11.3); NEUTROPHILS # (AUTO) 4.1 (2.1-6.9); NEUTROPHILS % 70.4 % (38.7-80.0); PLATELET COUNT 342 x10e3/uL (140-360); RED BLOOD COUNT 3.28 x10e6/uL (4.3-5.7); RED CELL DISTRIBUTION WIDTH 13.1 % (11.7-14.4)
[2022-06-07 06:19] LABS: ALBUMIN 2.1 g/dL (3.5-5.0); ALBUMIN/GLOBULIN RATIO 0.5 (0.8-2.0); ANION GAP 16.7 mmol/L (8-16); CALCIUM 9.4 mg/dL (8.4-10.2); CREATININE, SERUM 1.92 mg/dL (0.72-1.25); POTASSIUM 3.7 mmol/L (3.5-5.1)
[2022-06-07] MEDS: AMIODARONE HCL 200 MG TAB PO SCH (08:36)
[2022-06-07] MEDS: METOPROLOL SUCCINATE 50 MG TAB XL PO SCH ×2 (08:36→17:00)
[2022-06-07] MEDS: LIDOCAINE 4% PATCH TP SCH (08:36)
[2022-06-07] MEDS: BALSAM PERU/CASTOR OIL 60 GM OINT...G. TP SCH (08:36)
[2022-06-07] MEDS: PRIMIDONE 50 MG TAB PO SCH ×2 (08:36→17:00)
[2022-06-07] MEDS: DEXTROSE 5% 1,000 ML IV SCH (13:32)
[2022-06-07] MEDS: SIMVASTATIN 20 MG TAB PO SCH (21:00)
[2022-06-07] MEDS: INSULIN GLARGINE 100 UNITS/ML VIAL SQ SCH (21:05)
[2022-06-07] MEDS: Morphine 2mg Syringe 2 MG/ML SYR IV PRN (21:08)
[2022-06-07] MEDS: LATANOPROST(OPTH) 2.5 ML BTL OU SCH (21:09)
[2022-06-08] VITALS (24 sets, daily range): BP systolic 121–175; BP diastolic 55–72
[2022-06-08] MEDS: ENALAPRILAT IV INJ 1.25 MG/ML VIAL IV SCH ×4 (00:27→18:08)
[2022-06-08] MEDS: ALBUTEROL/IPRATROPIUM 3 ML NEB NEB SCH ×4 (01:05→19:00)
[2022-06-08] MEDS: DEXTROSE 5% 1,000 ML IV SCH ×2 (02:56→15:46)
[2022-06-08 06:12] LABS: BASOPHILS % 0.7 % (0.0-1.0); EOSINOPHILS # (AUTO) 0.2 (0.0-0.4); EOSINOPHILS % 3.7 % (0.0-6.0); HEMATOCRIT 31.3 % (38.2-49.6); HEMOGLOBIN 9.8 g/dL (14.0-18.0); LYMPHOCYTES % 17.9 % (18.0-39.1); MEAN CORPUSCULAR HEMOGLOBIN 29.3 pg (28-32); MEAN CORPUSCULAR HGB CONC 31.3 g/dL (31-35); MEAN CORPUSCULAR VOLUME 93.7 fL (81-99); MONOCYTES # (AUTO) 0.5 (0.2-0.8); NEUTROPHILS # (AUTO) 3.6 (2.1-6.9); NEUTROPHILS % 67.4 % (38.7-80.0); PLATELET COUNT 304 x10e3/uL (140-360); RED BLOOD COUNT 3.34 x10e6/uL (4.3-5.7)
[2022-06-08] MEDS: INSULIN LISPRO 100 UNIT/1 ML 3ML VIAL SQ SCH ×5 (06:18→23:57)
[2022-06-08 06:41] LABS: ANION GAP 12.9 mmol/L (8-16); CALCIUM 9.3 mg/dL (8.4-10.2); CREATININE, SERUM 1.85 mg/dL (0.72-1.25); MAGNESIUM 1.8 MG/DL (1.3-2.1); POTASSIUM 3.9 mmol/L (3.5-5.1)
[2022-06-08 06:42] LABS: ALBUMIN 2.1 g/dL (3.5-5.0); ALBUMIN/GLOBULIN RATIO 0.5 (0.8-2.0)
[2022-06-08] MEDS: PRIMIDONE 50 MG TAB PO SCH ×2 (08:07→15:49)
[2022-06-08] MEDS: AMIODARONE HCL 200 MG TAB PO SCH (08:07)
[2022-06-08] MEDS: METOPROLOL SUCCINATE 50 MG TAB XL PO SCH ×2 (08:07→15:49)
[2022-06-08] MEDS: BALSAM PERU/CASTOR OIL 60 GM OINT...G. TP SCH (08:30)
[2022-06-08] MEDS: LIDOCAINE 4% PATCH TP SCH (08:30)
[2022-06-08] MEDS: Morphine 2mg Syringe 2 MG/ML SYR IV PRN (18:08)
[2022-06-08] MEDS: INSULIN GLARGINE 100 UNITS/ML VIAL SQ SCH (20:03)
[2022-06-08] MEDS: LATANOPROST(OPTH) 2.5 ML BTL OU SCH (20:03)
[2022-06-08] MEDS: SIMVASTATIN 20 MG TAB PO SCH (20:22)
[2022-06-09] VITALS (22 sets, daily range): BP systolic 133–160; BP diastolic 49–66
[2022-06-09] MEDS: ALBUTEROL/IPRATROPIUM 3 ML NEB NEB SCH ×4 (01:10→19:00)
[2022-06-09] MEDS: DEXTROSE 5% 1,000 ML IV SCH ×2 (04:40→13:17)
[2022-06-09] MEDS: ENALAPRILAT IV INJ 1.25 MG/ML VIAL IV SCH ×4 (06:17→18:23)
[2022-06-09] MEDS: INSULIN LISPRO 100 UNIT/1 ML 3ML VIAL SQ SCH ×3 (06:25→18:20)
[2022-06-09] MEDS: PRIMIDONE 50 MG TAB PO SCH ×2 (09:00→17:00)
[2022-06-09] MEDS: METOPROLOL SUCCINATE 50 MG TAB XL PO SCH ×2 (09:00→17:00)
[2022-06-09] MEDS: AMIODARONE HCL 200 MG TAB PO SCH (09:00)
[2022-06-09] MEDS: BALSAM PERU/CASTOR OIL 60 GM OINT...G. TP SCH (09:16)
[2022-06-09] MEDS: LIDOCAINE 4% PATCH TP SCH (09:16)
[2022-06-09] MEDS: PERIPHERAL TPN FORMULA 1 BAG IV SCH (20:45)
[2022-06-09] MEDS: LATANOPROST(OPTH) 2.5 ML BTL OU SCH (20:53)
[2022-06-09] MEDS: SIMVASTATIN 20 MG TAB PO SCH (21:00)
[2022-06-09] MEDS: INSULIN GLARGINE 100 UNITS/ML VIAL SQ SCH (21:43)
[2022-06-10] VITALS (25 sets, daily range): BP systolic 144–207; BP diastolic 49–140
[2022-06-10] MEDS: ENALAPRILAT IV INJ 1.25 MG/ML VIAL IV SCH ×4 (00:12→17:34)
[2022-06-10] MEDS: ALBUTEROL/IPRATROPIUM 3 ML NEB NEB SCH ×4 (01:10→19:15)
[2022-06-10 05:04] LABS: ALBUMIN 2.1 g/dL (3.5-5.0); ALBUMIN/GLOBULIN RATIO 0.5 (0.8-2.0); ANION GAP 12.6 mmol/L (8-16); CREATININE, SERUM 1.77 mg/dL (0.72-1.25); MAGNESIUM 1.9 MG/DL (1.3-2.1); PHOSPHORUS 2.8 MG/DL (2.3-4.7); POTASSIUM 3.6 mmol/L (3.5-5.1)
[2022-06-10] MEDS: INSULIN LISPRO 100 UNIT/1 ML 3ML VIAL SQ SCH ×4 (06:00→17:47)
[2022-06-10] MEDS: PRIMIDONE 50 MG TAB PO SCH ×2 (08:27→16:33)
[2022-06-10] MEDS: AMIODARONE HCL 200 MG TAB PO SCH (08:27)
[2022-06-10] MEDS: LIDOCAINE 4% PATCH TP SCH (08:27)
[2022-06-10] MEDS: METOPROLOL SUCCINATE 50 MG TAB XL PO SCH ×2 (08:28→16:33)
[2022-06-10] MEDS: BALSAM PERU/CASTOR OIL 60 GM OINT...G. TP SCH (08:28)
[2022-06-10] MEDS: HYDRALAZINE HCL 20 MG/ML VIAL IV PRN (10:22)
[2022-06-10] MEDS: PERIPHERAL TPN FORMULA 1 BAG IV SCH (20:29)
[2022-06-10] MEDS: SIMVASTATIN 20 MG TAB PO SCH (20:52)
[2022-06-10] MEDS: LATANOPROST(OPTH) 2.5 ML BTL OU SCH (20:52)
[2022-06-10] MEDS: INSULIN GLARGINE 100 UNITS/ML VIAL SQ SCH (20:54)
[2022-06-10] MEDS ORDERED: LABETALOL HCL 5 MG/ML 20ML VIAL IV PRN (22:15)
[2022-06-10] MEDS ORDERED: NIFEDIPINE CR 30 MG TAB PO ONE (22:15)
[2022-06-11] VITALS (17 sets, daily range): BP systolic 126–166; BP diastolic 50–102
[2022-06-11] MEDS: ENALAPRILAT IV INJ 1.25 MG/ML VIAL IV SCH ×2 (00:16→05:29)
[2022-06-11] MEDS: INSULIN LISPRO 100 UNIT/1 ML 3ML VIAL SQ SCH ×4 (00:18→17:58)
[2022-06-11] MEDS: ALBUTEROL/IPRATROPIUM 3 ML NEB NEB SCH ×4 (01:50→19:20)
[2022-06-11 05:20] LABS: BASOPHILS % 0.5 % (0.0-1.0); EOSINOPHILS # (AUTO) 0.2 (0.0-0.4); HEMATOCRIT 29.6 % (38.2-49.6); HEMOGLOBIN 9.3 g/dL (14.0-18.0); LYMPHOCYTES # (AUTO) 0.9 (1.0-3.2); LYMPHOCYTES % 12.1 % (18.0-39.1); MEAN CORPUSCULAR HEMOGLOBIN 29.4 pg (28-32); MEAN CORPUSCULAR HGB CONC 31.4 g/dL (31-35); MEAN CORPUSCULAR VOLUME 93.7 fL (81-99); MONOCYTES # (AUTO) 0.6 (0.2-0.8); MONOCYTES % 7.4 % (4.4-11.3); NEUTROPHILS # (AUTO) 5.9 (2.1-6.9); NEUTROPHILS % 76.7 % (38.7-80.0); PLATELET COUNT 230 x10e3/uL (140-360); RED BLOOD COUNT 3.16 x10e6/uL (4.3-5.7); RED CELL DISTRIBUTION WIDTH 13.5 % (11.7-14.4)
[2022-06-11 05:57] LABS: ANION GAP 14.5 mmol/L (8-16); CALCIUM 8.8 mg/dL (8.4-10.2); CREATININE, SERUM 1.59 mg/dL (0.72-1.25); MAGNESIUM 2.1 MG/DL (1.3-2.1); POTASSIUM 3.5 mmol/L (3.5-5.1)
[2022-06-11] MEDS: PRIMIDONE 50 MG TAB PO SCH ×2 (09:21→17:32)
[2022-06-11] MEDS: AMIODARONE HCL 200 MG TAB PO SCH (09:21)
[2022-06-11] MEDS: NIFEDIPINE CR 30 MG TAB PO SCH (09:21)
[2022-06-11] MEDS: METOPROLOL SUCCINATE 50 MG TAB XL PO SCH ×2 (09:22→17:32)
[2022-06-11] MEDS: BALSAM PERU/CASTOR OIL 60 GM OINT...G. TP SCH (09:22)
[2022-06-11] MEDS: LIDOCAINE 4% PATCH TP SCH (09:22)
[2022-06-11] MEDS: CLONIDINE HCL 0.3MG/24 HR PATCH TOP SCH (10:54)
[2022-06-11] MEDS ORDERED: POTASSIUM CHLORIDE 20 MEQ TAB CR PO ONE (12:30)
[2022-06-11] MEDS: PERIPHERAL TPN FORMULA 1 BAG IV SCH (20:36)
[2022-06-11] MEDS: LATANOPROST(OPTH) 2.5 ML BTL OU SCH (20:37)
[2022-06-11] MEDS: SIMVASTATIN 20 MG TAB PO SCH (20:45)
[2022-06-11] MEDS: INSULIN GLARGINE 100 UNITS/ML VIAL SQ SCH (20:50)
[2022-06-11] MEDS ORDERED: INSULIN LISPRO 100 UNIT/1 ML 3ML VIAL SQ SCH (21:00)
[2022-06-12] VITALS (23 sets, daily range): BP systolic 117–158; BP diastolic 49–116
[2022-06-12] MEDS: ALBUTEROL/IPRATROPIUM 3 ML NEB NEB SCH ×4 (00:40→19:10)
[2022-06-12 06:44] LABS: BASOPHILS % 0.3 % (0.0-1.0); EOSINOPHILS # (AUTO) 0.3 (0.0-0.4); EOSINOPHILS % 2.9 % (0.0-6.0); HEMATOCRIT 30.6 % (38.2-49.6); HEMOGLOBIN 9.9 g/dL (14.0-18.0); LYMPHOCYTES % 9.7 % (18.0-39.1); MEAN CORPUSCULAR HEMOGLOBIN 29.8 pg (28-32); MEAN CORPUSCULAR HGB CONC 32.4 g/dL (31-35); MEAN CORPUSCULAR VOLUME 92.2 fL (81-99); MONOCYTES # (AUTO) 0.5 (0.2-0.8); MONOCYTES % 5.4 % (4.4-11.3); NEUTROPHILS % 80.4 % (38.7-80.0); PLATELET COUNT 265 x10e3/uL (140-360); RED BLOOD COUNT 3.32 x10e6/uL (4.3-5.7); RED CELL DISTRIBUTION WIDTH 13.7 % (11.7-14.4)
[2022-06-12 07:07] LABS: ALBUMIN 2.2 g/dL (3.5-5.0); ALBUMIN/GLOBULIN RATIO 0.5 (0.8-2.0); ANION GAP 10.8 mmol/L (8-16); CALCIUM 9.3 mg/dL (8.4-10.2); CREATININE, SERUM 1.49 mg/dL (0.72-1.25); MAGNESIUM 2.4 MG/DL (1.3-2.1); POTASSIUM 3.8 mmol/L (3.5-5.1)
[2022-06-12] MEDS: INSULIN LISPRO 100 UNIT/1 ML 3ML VIAL SQ SCH ×4 (07:30→20:33)
[2022-06-12 08:00] LABS: PHOSPHORUS 2.6 MG/DL (2.3-4.7)
[2022-06-12] MEDS: PRIMIDONE 50 MG TAB PO SCH ×2 (09:00→17:50)
[2022-06-12] MEDS: METOPROLOL SUCCINATE 50 MG TAB XL PO SCH ×2 (09:00→17:50)
[2022-06-12] MEDS ORDERED: LIDOCAINE HCL 4% 50 ML BTL ONE (10:00)
[2022-06-12] MEDS ORDERED: EPINEPHRINE HCL 1:1000 1ML 1 MG/ML AMP ONE (10:00)
[2022-06-12] MEDS ORDERED: LIDOCAINE HCL 2% JELLY 5 ML TUBE ONE (10:00)
[2022-06-12] MEDS ORDERED: PROPOFOL IV EMULSION 10 MG/ML 20 ML VIAL ONE (11:54)
[2022-06-12] MEDS ORDERED: LIDOCAINE HCL 2% LOCAL INJ 5 ML SDV VIAL INJ ONE (11:54)
[2022-06-12] MEDS ORDERED: SEVOFLURANE INHAL SOLN 250 ML PEN BTL ONE (11:54)
[2022-06-12] MEDS ORDERED: ROCURONIUM BROMIDE 10 MG/ML 5ML VIAL IV ONE (11:54)
[2022-06-12] MEDS ORDERED: DEXAMETHASONE SOD PHOS INJ 4 MG/ML SDV ONE (11:54)
[2022-06-12] MEDS ORDERED: SUCCINYLCHOLINE CHLORIDE 20 MG/ML 10ML VIAL ONE (11:54)
[2022-06-12] MEDS ORDERED: ONDANSETRON HCL INJ 2MG/ML 2ML 2 MG/ML VIAL ONE (11:54)
[2022-06-12] MEDS ORDERED: POVIDONE IODINE 0.05% 0.05 % ML PO ONE (11:54)
[2022-06-12] MEDS: NIFEDIPINE CR 30 MG TAB PO SCH (13:53)
[2022-06-12] MEDS: LIDOCAINE 4% PATCH TP SCH (13:53)
[2022-06-12] MEDS: AMIODARONE HCL 200 MG TAB PO SCH (13:53)
[2022-06-12] MEDS: METRONIDAZOLE 500MG/NS 100ML 100 ML IV SCH ×2 (13:54→21:47)
[2022-06-12] MEDS: BALSAM PERU/CASTOR OIL 60 GM OINT...G. TP SCH (13:54)
[2022-06-12] MEDS: VANCOMYCIN HCL 125 MG CAPSULE PO SCH ×2 (17:49→23:56)
[2022-06-12] MEDS: PERIPHERAL TPN FORMULA 1 BAG IV SCH (20:23)
[2022-06-12] MEDS: SIMVASTATIN 20 MG TAB PO SCH (20:24)
[2022-06-12] MEDS: INSULIN GLARGINE 100 UNITS/ML VIAL SQ SCH (20:32)
[2022-06-12] MEDS: LATANOPROST(OPTH) 2.5 ML BTL OU SCH (20:33)
[2022-06-13] VITALS (26 sets, daily range): BP systolic 112–166; BP diastolic 51–81
[2022-06-13] MEDS: ALBUTEROL/IPRATROPIUM 3 ML NEB NEB SCH ×4 (00:30→19:20)
[2022-06-13] MEDS: VANCOMYCIN HCL 125 MG CAPSULE PO SCH ×3 (05:19→18:07)
[2022-06-13] MEDS: METRONIDAZOLE 500MG/NS 100ML 100 ML IV SCH (05:19)
[2022-06-13] MEDS: INSULIN LISPRO 100 UNIT/1 ML 3ML VIAL SQ SCH (07:55)
[2022-06-13] MEDS: AMIODARONE HCL 200 MG TAB PO SCH (09:03)
[2022-06-13] MEDS: METOPROLOL SUCCINATE 50 MG TAB XL PO SCH ×2 (09:04→17:32)
[2022-06-13] MEDS: PRIMIDONE 50 MG TAB PO SCH ×2 (09:04→17:32)
[2022-06-13] MEDS: NIFEDIPINE CR 30 MG TAB PO SCH (09:05)
[2022-06-13] MEDS: LIDOCAINE 4% PATCH TP SCH (09:05)
[2022-06-13] MEDS: BALSAM PERU/CASTOR OIL 60 GM OINT...G. TP SCH (09:06)
[2022-06-13 10:02] LABS: ANION GAP 13.2 mmol/L (8-16); CALCIUM 9.3 mg/dL (8.4-10.2); CREATININE, SERUM 1.64 mg/dL (0.72-1.25); POTASSIUM 4.2 mmol/L (3.5-5.1)
[2022-06-13] MEDS: INSULIN REGULAR, HUMAN 100 UNIT/1 ML SQ SCH ×2 (17:40→21:09)
[2022-06-13] MEDS: PERIPHERAL TPN FORMULA 1 BAG IV SCH (20:00)
[2022-06-13] MEDS: SIMVASTATIN 20 MG TAB PO SCH (20:59)
[2022-06-13] MEDS: LATANOPROST(OPTH) 2.5 ML BTL OU SCH (21:01)
[2022-06-13] MEDS: INSULIN GLARGINE 100 UNITS/ML VIAL SQ SCH (21:10)
[2022-06-14] VITALS (26 sets, daily range): BP systolic 114–145; BP diastolic 51–106
[2022-06-14] MEDS: VANCOMYCIN HCL 125 MG CAPSULE PO SCH ×4 (00:28→17:44)
[2022-06-14] MEDS: ALBUTEROL/IPRATROPIUM 3 ML NEB NEB SCH ×4 (02:45→19:00)
[2022-06-14 06:31] LABS: ALBUMIN 2.2 g/dL (3.5-5.0); ALBUMIN/GLOBULIN RATIO 0.6 (0.8-2.0); ANION GAP 13.6 mmol/L (8-16); CALCIUM 9.1 mg/dL (8.4-10.2); CREATININE, SERUM 1.49 mg/dL (0.72-1.25); MAGNESIUM 2.1 MG/DL (1.3-2.1); POTASSIUM 4.6 mmol/L (3.5-5.1)
[2022-06-14] MEDS: INSULIN REGULAR, HUMAN 100 UNIT/1 ML SQ SCH ×4 (07:26→21:29)
[2022-06-14] MEDS: NIFEDIPINE CR 30 MG TAB PO SCH (08:51)
[2022-06-14] MEDS: METOPROLOL SUCCINATE 50 MG TAB XL PO SCH (08:51)
[2022-06-14] MEDS: LIDOCAINE 4% PATCH TP SCH (08:52)
[2022-06-14] MEDS: AMIODARONE HCL 200 MG TAB PO SCH (08:52)
[2022-06-14] MEDS: PRIMIDONE 50 MG TAB PO SCH (08:52)
[2022-06-14] MEDS: BALSAM PERU/CASTOR OIL 60 GM OINT...G. TP SCH (08:52)
[2022-06-14] MEDS ORDERED: INSULIN GLARGINE 100 UNITS/ML VIAL SQ SCH (21:00)
[2022-06-14] MEDS: SIMVASTATIN 20 MG TAB PO SCH (21:10)
[2022-06-15] VITALS (25 sets, daily range): BP systolic 110–150; BP diastolic 51–68
[2022-06-15] MEDS: VANCOMYCIN HCL 125 MG CAPSULE PO SCH ×5 (00:03→23:54)
[2022-06-15] MEDS: INSULIN REGULAR, HUMAN 100 UNIT/1 ML SQ SCH ×2 (06:31→12:21)
[2022-06-15] MEDS: NIFEDIPINE CR 30 MG TAB PO SCH (08:50)
[2022-06-15] MEDS: AMIODARONE HCL 200 MG TAB PO SCH (08:50)
[2022-06-15] MEDS: BALSAM PERU/CASTOR OIL 60 GM OINT...G. TP SCH (08:51)
[2022-06-15] MEDS: LIDOCAINE 4% PATCH TP SCH (08:52)
[2022-06-15] MEDS ORDERED: DEXTROSE 50% SYRINGE 50 ML IV PRN (15:15)
[2022-06-15] MEDS: INSULIN LISPRO 100 UNIT/1 ML 3ML VIAL SQ SCH ×3 (16:50→21:00)
[2022-06-15] MEDS: ALBUTEROL/IPRATROPIUM 3 ML NEB NEB SCH (19:10)
[2022-06-15] MEDS: INSULIN GLARGINE 100 UNITS/ML VIAL SQ SCH (21:41)
[2022-06-16] VITALS (15 sets, daily range): BP systolic 94–160; BP diastolic 54–79
[2022-06-16] MEDS: ALBUTEROL/IPRATROPIUM 3 ML NEB NEB SCH ×4 (00:50→19:40)
[2022-06-16 04:44] LABS: BASOPHILS % 0.3 % (0.0-1.0); EOSINOPHILS # (AUTO) 0.1 (0.0-0.4); EOSINOPHILS % 0.6 % (0.0-6.0); HEMATOCRIT 31.3 % (38.2-49.6); LYMPHOCYTES # (AUTO) 1.3 (1.0-3.2); LYMPHOCYTES % 14.8 % (18.0-39.1); MEAN CORPUSCULAR HEMOGLOBIN 29.2 pg (28-32); MEAN CORPUSCULAR HGB CONC 31.9 g/dL (31-35); MEAN CORPUSCULAR VOLUME 91.5 fL (81-99); MONOCYTES # (AUTO) 0.6 (0.2-0.8); MONOCYTES % 6.9 % (4.4-11.3); NEUTROPHILS # (AUTO) 6.9 (2.1-6.9); NEUTROPHILS % 76.5 % (38.7-80.0); PLATELET COUNT 205 x10e3/uL (140-360); RED BLOOD COUNT 3.42 x10e6/uL (4.3-5.7); RED CELL DISTRIBUTION WIDTH 13.7 % (11.7-14.4)
[2022-06-16 05:07] LABS: ALBUMIN 2.2 g/dL (3.5-5.0); ALBUMIN/GLOBULIN RATIO 0.5 (0.8-2.0); ANION GAP 12.5 mmol/L (8-16); CALCIUM 9.1 mg/dL (8.4-10.2); CREATININE, SERUM 1.52 mg/dL (0.72-1.25); POTASSIUM 4.5 mmol/L (3.5-5.1)
[2022-06-16] MEDS: VANCOMYCIN HCL 125 MG CAPSULE PO SCH ×3 (05:49→17:13)
[2022-06-16] MEDS: INSULIN LISPRO 100 UNIT/1 ML 3ML VIAL SQ SCH ×7 (07:14→21:00)
[2022-06-16] MEDS: BALSAM PERU/CASTOR OIL 60 GM OINT...G. TP SCH (08:32)
[2022-06-16] MEDS: LIDOCAINE 4% PATCH TP SCH (08:32)
[2022-06-16] MEDS: NIFEDIPINE CR 30 MG TAB PO SCH (08:32)
[2022-06-16] MEDS: ACETYLCYSTEINE 200 MG/ML 4ML VIAL INH SCH ×2 (13:30→19:40)
[2022-06-16] MEDS: INSULIN GLARGINE 100 UNITS/ML VIAL SQ SCH (22:02)
[2022-06-17] VITALS (16 sets, daily range): BP systolic 136–159; BP diastolic 50–77
[2022-06-17] MEDS: VANCOMYCIN HCL 125 MG CAPSULE PO SCH ×3 (00:10→12:09)
[2022-06-17] MEDS: ACETYLCYSTEINE 200 MG/ML 4ML VIAL INH SCH ×3 (02:40→13:38)
[2022-06-17] MEDS: ALBUTEROL/IPRATROPIUM 3 ML NEB NEB SCH ×3 (02:40→13:38)
[2022-06-17] MEDS: INSULIN LISPRO 100 UNIT/1 ML 3ML VIAL SQ SCH ×4 (07:40→12:09)
[2022-06-17] MEDS ORDERED: DORZOLAMIDE/TIMOLOL (OPTH SOL) 10 ML DRPETTE OP SCH (09:00)
[2022-06-17] MEDS: BALSAM PERU/CASTOR OIL 60 GM OINT...G. TP SCH (09:06)
[2022-06-17] MEDS: LIDOCAINE 4% PATCH TP SCH (09:06)
[2022-06-17] MEDS: NIFEDIPINE CR 30 MG TAB PO SCH (09:06)
[2022-06-17] MEDS ORDERED: NOVOLOG100 UNIT/1 SC ×2 (17:38→17:39)
[2022-06-17] MEDS ORDERED: PANTOPRAZOLE SO40 MG IV (17:40)
[2022-06-17] MEDS ORDERED: PROTONIX20 MG PO (17:40)
[2022-06-17] MEDS ORDERED: COSOPT PF EYE1 EACH OU (17:41)
[2022-06-17] MEDS ORDERED: VANCOCIN HCL250 MG PO (17:42)
[2022-06-17] MEDS ORDERED: LANTUS 3ML100 UNITS/ SC (17:46)
[2022-06-17] MEDS ORDERED: LIDOCAINE PAIN1 EACH TOP (17:49)
== END 2022-06-17 16:50 | DRG 207 ==
LOC: ER 09:30 → ERHOLD 12:45 → MED/SURG3 14:00 → ICU 17:12
PROVIDERS: ADMIT Family Medicine; ATTEND Family Medicine
PROC: 5A09357 Assistance with Respiratory Ventilation, Less than 24 Consecutive Hours, Continuous Positive Airway Pressure (ICD-10-PCS; 2022-05-15)
PROC: 5A09357 Assistance with Respiratory Ventilation, Less than 24 Consecutive Hours, Continuous Positive Airway Pressure (ICD-10-PCS; 2022-05-16)
PROC: 5A0935A Assistance with Respiratory Ventilation, Less than 24 Consecutive Hours, High Flow/Velocity Cannula (ICD-10-PCS; 2022-05-18)
PROC: 5A1955Z Respiratory Ventilation, Greater than 96 Consecutive Hours (ICD-10-PCS; 2022-05-20)
PROC: 0B978ZZ Drainage of Left Main Bronchus, Via Natural or Artificial Opening Endoscopic (ICD-10-PCS; 2022-05-20)
PROC: 0B938ZZ Drainage of Right Main Bronchus, Via Natural or Artificial Opening Endoscopic (ICD-10-PCS; 2022-05-20)
PROC: 02HV33Z Insertion of Infusion Device into Superior Vena Cava, Percutaneous Approach (ICD-10-PCS; principal; 2022-05-21)
PROC: B5181ZA Fluoroscopy of Superior Vena Cava using Low Osmolar Contrast, Guidance (ICD-10-PCS; 2022-05-21)
PROC: 0W9B30Z Drainage of Left Pleural Cavity with Drainage Device, Percutaneous Approach (ICD-10-PCS; 2022-05-21)
PROC: 5A1D70Z Performance of Urinary Filtration, Intermittent, Less than 6 Hours Per Day (ICD-10-PCS; 2022-05-22)
PROC: 0BC98ZZ Extirpation of Matter from Lingula Bronchus, Via Natural or Artificial Opening Endoscopic (ICD-10-PCS; 2022-05-23)
PROC: 0BC48ZZ Extirpation of Matter from Right Upper Lobe Bronchus, Via Natural or Artificial Opening Endoscopic (ICD-10-PCS; 2022-05-23)
PROC: 0BC58ZZ Extirpation of Matter from Right Middle Lobe Bronchus, Via Natural or Artificial Opening Endoscopic (ICD-10-PCS; 2022-05-23)
PROC: 0BC68ZZ Extirpation of Matter from Right Lower Lobe Bronchus, Via Natural or Artificial Opening Endoscopic (ICD-10-PCS; 2022-05-23)
PROC: 0BCB8ZZ Extirpation of Matter from Left Lower Lobe Bronchus, Via Natural or Artificial Opening Endoscopic (ICD-10-PCS; 2022-05-23)
PROC: 0BC98ZZ Extirpation of Matter from Lingula Bronchus, Via Natural or Artificial Opening Endoscopic (ICD-10-PCS; 2022-05-25)
PROC: 0BC88ZZ Extirpation of Matter from Left Upper Lobe Bronchus, Via Natural or Artificial Opening Endoscopic (ICD-10-PCS; 2022-05-25)
PROC: 0BC68ZZ Extirpation of Matter from Right Lower Lobe Bronchus, Via Natural or Artificial Opening Endoscopic (ICD-10-PCS; 2022-05-25)
PROC: 0BCB8ZZ Extirpation of Matter from Left Lower Lobe Bronchus, Via Natural or Artificial Opening Endoscopic (ICD-10-PCS; 2022-05-25)
PROC: 0BC98ZZ Extirpation of Matter from Lingula Bronchus, Via Natural or Artificial Opening Endoscopic (ICD-10-PCS; 2022-06-12)
PROC: 0BC78ZZ Extirpation of Matter from Left Main Bronchus, Via Natural or Artificial Opening Endoscopic (ICD-10-PCS; 2022-06-12)
PROC: 0BCB8ZZ Extirpation of Matter from Left Lower Lobe Bronchus, Via Natural or Artificial Opening Endoscopic (ICD-10-PCS; 2022-06-12)
PROC: 3E0436Z Introduction of Nutritional Substance into Central Vein, Percutaneous Approach (ICD-10-PCS; 2022-06-12)
PROC: 0WPBX0Z Removal of Drainage Device from Left Pleural Cavity, External Approach (ICD-10-PCS; 2022-06-17)
DX: J18.9 Pneumonia, unspecified organism (principal); E11.10 Type 2 diabetes mellitus with ketoacidosis without coma; J96.01 Acute respiratory failure with hypoxia; I50.23 Acute on chronic systolic (congestive) heart failure; N17.0 Acute kidney failure with tubular necrosis; S22.41XA Multiple fractures of ribs, right side, initial encounter for closed fracture; J44.0 Chronic obstructive pulmonary disease with (acute) lower respiratory infection; N17.9 Acute kidney failure, unspecified; I13.0 Hypertensive heart and chronic kidney disease with heart failure and stage 1 through stage 4 chronic kidney disease, or unspecified chronic kidney disease; J91.8 Pleural effusion in other conditions classified elsewhere; T17.590A Other foreign object in bronchus causing asphyxiation, initial encounter; T17.890A Other foreign object in other parts of respiratory tract causing asphyxiation, initial encounter; J98.11 Atelectasis; E87.0 Hyperosmolality and hypernatremia; J94.2 Hemothorax; A04.72 Enterocolitis due to Clostridium difficile, not specified as recurrent; I48.91 Unspecified atrial fibrillation; E78.5 Hyperlipidemia, unspecified; Z86.718 Personal history of other venous thrombosis and embolism; G47.33 Obstructive sleep apnea (adult) (pediatric); E66.01 Morbid (severe) obesity due to excess calories; Z95.810 Presence of automatic (implantable) cardiac defibrillator; Z88.8 Allergy status to other drugs, medicaments and biological substances; W18.30XA Fall on same level, unspecified, initial encounter; Y92.012 Bathroom of single-family (private) house as the place of occurrence of the external cause; Z68.25 Body mass index [BMI] 25.0-25.9, adult; E87.5 Hyperkalemia; E11.22 Type 2 diabetes mellitus with diabetic chronic kidney disease; N18.9 Chronic kidney disease, unspecified; I25.10 Atherosclerotic heart disease of native coronary artery without angina pectoris; Z83.3 Family history of diabetes mellitus; J15.212 Pneumonia due to Methicillin resistant Staphylococcus aureus; T38.3X5A Adverse effect of insulin and oral hypoglycemic [antidiabetic] drugs, initial encounter; Z66 Do not resuscitate; J69.0 Pneumonitis due to inhalation of food and vomit; J15.0 Pneumonia due to Klebsiella pneumoniae
CPT/HCPCS: 31622; 32552; 32557; 36415; 36556; 36600; 70450; 71045; 71250; 72125; 74018; 74230; 74470; 76604; 76770; 76937; 76942; 77001; 80048; 80053; 80061; 81001; 82550; 82553; 82805; 82945; 82948; 83036; 83605; 83615; 83735; 83880; 84100; 84157; 84439; 84443; 84484; 85007; 85025; 85027; 85610; 85730; 86706; 87040; 87070; 87086; 87102; 87116; 87186; 87205; 87206; 87324; 87335; 87340; 87449; 87493; 88112; 88305; 89051; 90962; 93005; 93306; 94003; 94640; 94660; 94667; 94668; 94669; 94799; 96361; 96372; 97139; 99251; 99284; C1729; C1752; C1769; J0171; J0330; J0360; J0692; J0696; J1100; J1450; J1644; J1815; J1817; J1940; J2001; J2020; J2150; J2248; J2270; J2405; J2543; J2920; J3370; J3480; J7030; J7042; J7050; J7070; P9047